=== PATIENT | female | born 1945 | race Caucasian/White ===

== ENCOUNTER 2017-11-15 08:03 | Inpatient (IN) | payer MEDICARE, BC ==
[2017-11-15 08:06] VITALS: BMI 36.6
--- NOTE | 2017-11-15 08:42 | ED PDOC ---
HPI: Altered Mental Status Time Seen by Provider: 11/15/17 08:12 Chief Complaint (Nursing): Altered Mental Status Chief Complaint (Provider): Altered mental status History Per: Other ([facility] staff at [facility]) History/Exam Limitations: Clinical Condition Onset/Duration Of Symptoms: Days Current Symptoms Are (Timing): Still Present Description Of Symptoms: Confused Usual Baseline: Alert Oriented Additional Complaint(s): 72yo female arrives to ER from [address] [place] [address] where she was visiting her partner and per clinical staff upstairs, patient was noted to have worsening confusion over the past couple days. Currently in ED, patient denies any complaints however she appears confused. A full HPI is limited due to patient confusion. Prior chart review reveals a past medical history of hypertension, hyperthyroidsm, TIA (8 years ago) and arthritis. NIHSS Stroke Scale - Date/Time Evaluation Performed Date Performed: 11/15/17 Time Performed: 09:55 When Was NIHSS Performed: Baseline - How Severe is the Stroke Level of Consciousness: 0=Alert LOC to Questions: 1=One correct LOC to commands: 0=Obeys both correctly Best Gaze: 0=Normal Visual: 0=No visual loss Facial: 0=Normal Motor Arm - Left: 0=No drift Motor Arm - Right: 0=No drift Motor Leg - Left: 0=No drift Motor Leg - Right: 0=No drift Limb Ataxia: 0=Absent Sensory: 0=Normal Best Language: 0=No aphasia Dysarthia: 0=Normal articulation Extinction & Inattention (Neglect): 0=Normal, no object Score: 1 rTPA Inclusion/Exclusion - Refusal of Treatment Patient Refused Treatment: No - Inclusion Criteria for Altepase Patient is 18 years or Older: Yes Clinical DX Ischemic Stroke Cause Neurological Deficit: No Time of Onset Established Less Than 270 Mins Before TX Begin: No Risk/Benefit Discussed With Patient/Family Member Present: Yes - Exclusion Criteria for Altepase Uncontrolled Hypertension at Time of TX (SBP>185 or DBP>110): No Past Medical History Reviewed: Historical Data, Nursing Documentation, Vital Signs Vital Signs: Last Vital Signs Temp 98 F 11/15/17 08:06 Pulse 60 11/15/17 08:06 Resp 16 11/15/17 08:06 BP 158/73 H 11/15/17 08:06 Pulse Ox 98 11/15/17 08:06 - Medical History PMH: Arthritis, Asthma, Diverticulitis, HTN, Hypothyroidism, TIA Denies: CHF, COPD, HIV, Hypercholesterolemia, Chronic Kidney Disease, Rheumatoid Arthritis - Surgical History Surgical History: Tonsillectomy - Family History Family History: States: No Known Family Hx, Unknown Family Hx - Home Medications Home Medications: Ambulatory Orders Medication Instructions Recorded Memantine HCl [Namenda Xr] 14 mg PO DAILY 09/07/16 Telmisartan/Hydrochlorothiazid 1 tab PO DAILY 09/07/16 [Micardis Hct 80-12.5 mg Tablet] Levothyroxine [Synthroid] 150 mcg PO DAILY 11/15/17 - Allergies Allergies/Adverse Reactions: Allergies Allergy/AdvReac Type Severity Reaction Status Date / Time terbinafine HCl Allergy RASH Verified 09/03/16 13:11 [From Lamisil] Review of Systems Review Of Systems: ROS cannot be obtained secondary to pt's inabilty to answer questions. (confused) Physical Exam - Reviewed Nursing Documentation Reviewed: Yes Vital Signs Reviewed: Yes - Physical Exam Appears: Positive for: Non-toxic Head Exam: Positive for: ATRAUMATIC, NORMAL INSPECTION, NORMOCEPHALIC Skin: Positive for: Normal Color Eye Exam: Positive for: Normal appearance ENT: Positive for: Other (moist mucus membranes) Neck: Positive for: Supple Respiratory: Negative for: Respiratory Distress Gastrointestinal/Abdominal: Positive for: Soft. Negative for: Tenderness Extremity: Negative for: Deformity Neurologic/Psych: Positive for: Other (Patient has poor short term recall. Successful identificatio of objects such as pen and keys; could not recall her address. Patient could spell name successfully.). Negative for: Motor/Sensory Deficits (Patient has equal strength, 5/5. Coordination slow but intact.), Aphasia (No dysarthria noted. Speech is fluent but with periods of confusion.) - Laboratory Results Result Diagrams: 11/17/17 06:00 11/19/17 04:30 - ECG ECG: Positive for: Interpreted By Me, Viewed By Me ECG Rhythm: Positive for: Sinus Bradycardia, Nonspecific Changes (ST/T waves) Rate: 56 O2 Sat by Pulse Oximetry: 98 (RA) Pulse Ox Interpretation: Normal Medical Decision Making Medical Decision Making: Impression: Altered mental status Plan: -- CT Head -- Labs -- Chest x-ray -- Will discuss with patient's PCP Dr. Abdi Time: 0162 Patient to be admitted to telemetry under Dr. Jeffrey for altered mental status. Time: 1040 CT Head FINDINGS: HEMORRHAGE: No intracranial hemorrhage. BRAIN: No mass effect or edema. Minimal atrophy. Mild periventricular white matter lucency with patchy foci of subcortical and deep white matter lucency consistent with age related microvascular ischemic change. No evidence of acute infarct. VENTRICLES: Unremarkable. No hydrocephalus. CALVARIUM: Unremarkable. PARANASAL SINUSES: Unremarkable as visualized. No significant inflammatory changes. MASTOID AIR CELLS: Unremarkable as visualized. No inflammatory changes. OTHER FINDINGS: None. IMPRESSION: No intracranial mass, hemorrhage or evidence of acute infarct. Age-appropriate involutional change. Admit hospitalist, remains confused per report off baseline Metabolics available in ED/ labs inconclusive as to cause. ?dementia vs organic etiology. Unclear prior history. D/w Dr Abdi PMD admit hospitalist, will consult neurology. No signs sepsis/neck pain/ fever/ seizure activity to demonstrate meningitis on arrival. Scribe Attestation: Documented by Maria Eugenia Blackwood acting as a scribe for Mark Ochoa DO. Provider Attestation: All medical record entries made by the Scribe were at my direction and personally dictated by me. I have reviewed the chart and agree that the record accurately reflects my personal performance of the history, physical exam, medical decision making, and the department course for this patient. I have also personally directed, reviewed, and agree with the discharge instructions and disposition. Disposition - Clinical Impression Clinical Impression: Altered mental status - Patient ED Disposition Is Patient to be Admitted: Yes Counseled Patient/Family Regarding: Studies Performed, Diagnosis, Need For Followup, Rx Given - Disposition Disposition Time: 09:55 Condition: FAIR - Pt Status Changed To: Hospital Disposition Of: Inpatient - Admit Certification Admit to Inpatient:: After my assessment, the patient will require hospitalization for at least two midnights. This is because of the severity of symptoms shown, intensity of services needed, and/or the medical risk in this patient being treated as an outpatient.
[2017-11-15 08:44] LABS: BASO # 0.1 K/uL (0.0-0.2); BASO % 1.2 % (0.0-2.0); EOS % 0.8 % (0.0-4.0); HEMOGLOBIN 14.5 g/dL (12.0-16.0); LYMPH # 1.2 K/uL (1.0-4.3); MEAN CELL VOLUME 94.1 fl (81.0-99.0); MEAN PLATELET VOLUME 8.5 fl (7.2-11.7); MONO # 0.4 K/uL (0.0-0.8); MONO % 7.8 % (0.0-10.0); NEUT # 3.8 K/uL (1.8-7.0); NEUT % 69.2 % (50.0-75.0); NRBC % 0.1 % (0.0-0.0); RBC 4.52 Mil/uL (3.80-5.20); RED CELL DISTRIBUTION WIDTH 15.8 % (11.5-14.5); WHITE BLOOD COUNT 5.6 K/uL (4.8-10.8)
[2017-11-15 09:08] LABS: INR 1.1 (0.9-1.2); PARTIAL THROMBOPLASTIN TIME 33.8 Seconds (25.6-37.1); PROTHROMBIN TIME 11.7 Seconds (9.8-13.1)
[2017-11-15 09:16] LABS: ALBUMIN 4.8 g/dL (3.5-5.0); ALT/SGPT 65 U/L (9-52); AST/SGOT 77 U/L (14-36); BLOOD UREA NITROGEN 14 mg/dl (7-17); CALCIUM 9.8 mg/dL (8.4-10.2); GFR AFRICAN-AMERICAN 48; GFR NON-AFRICAN AMERICAN 40
[2017-11-15 09:18] LABS: ALB/GLOB RATIO 1.3 (1.0-2.1)
[2017-11-15 09:57] LABS: SQUAMOUS EPITHIAL 4 /hpf (0-5); URINE BACTERIA FEW (<OCC); URINE BILIRUBIN NEGATIVE (NEGATIVE); URINE BLOOD MODERATE (NEGATIVE); URINE CLARITY CLOUDY (Clear); URINE COLOR YELLOW (YELLOW); URINE GLUCOSE (UA) NEG (Normal); URINE LEUKOCYTE ESTERASE MOD Leu/uL (Negative); URINE NITRATE NEGATIVE (NEGATIVE); URINE PROTEIN 100 mg/dL (NEGATIVE); URINE UROBILINOGEN 0.2-1.0 mg/dL (0.2-1.0)
--- NOTE | 2017-11-15 10:41 | CT ---
PROCEDURE: CT HEAD WITHOUT CONTRAST. HISTORY: AMS COMPARISON: None available. TECHNIQUE: Axial computed tomography images were obtained through the head/brain without intravenous contrast. Radiation dose: Total exam DLP = 777.82 mGy-cm. This CT exam was performed using one or more of the following dose reduction techniques: Automated exposure control, adjustment of the mA and/or kV according to patient size, and/or use of iterative reconstruction technique. FINDINGS: HEMORRHAGE: No intracranial hemorrhage. BRAIN: No mass effect or edema. Minimal atrophy. Mild periventricular white matter lucency with patchy foci of subcortical and deep white matter lucency consistent with age related microvascular ischemic change. No evidence of acute infarct. VENTRICLES: Unremarkable. No hydrocephalus. CALVARIUM: Unremarkable. PARANASAL SINUSES: Unremarkable as visualized. No significant inflammatory changes. MASTOID AIR CELLS: Unremarkable as visualized. No inflammatory changes. OTHER FINDINGS: None. IMPRESSION: No intracranial mass, hemorrhage or evidence of acute infarct. Age-appropriate involutional change.
--- NOTE | 2017-11-15 11:32 | RAD ---
HISTORY: AMS COMPARISON: No prior. FINDINGS: LUNGS: No active pulmonary disease. PLEURA: No significant pleural effusion identified, no pneumothorax apparent. CARDIOVASCULAR: Normal. OSSEOUS STRUCTURES: No significant abnormalities. VISUALIZED UPPER ABDOMEN: Normal. OTHER FINDINGS: None. IMPRESSION: No active disease.
--- NOTE | 2017-11-15 13:37 | CP.PCM.HP ---
History of Present Illness - History of Present Illness History of Present Illness: 72 y/o female with PMH HTN, dementia, hypothyroidism, TIA was brought down to ER for evaluation from [address] for Altered mental status and confusion . As per staff patient's girlfriend has been admitted in the hospital a couple of days ago and since than the patient has not left her side. As per staff they noticed patient getting more confused , wandering in the unit, without knowing where she was and what she was doing , unable to answer questions appropriately . Her CT head showed no acute pathology. Patient oriented only to self with no gross neuro deficits , unable to provide history or ROS. As per friend and girlfriend patient has dementia PMD ; None Allergies ; terbinafinE PMH; Dementia, HTN , Hypothyroidism Medications; Synthroid, memantine, telmizartan/HCTZ Surgery ; [place] family history ; Unknown Social history ; Lives with girlfriend ,does not smoke ROS ; unable to obtain from patient or family members Present on Admission - Present on Admission Any Indicators Present on Admission: No Past Patient History - Infectious Disease Hx of Infectious Diseases: None - Tetanus Immunizations Tetanus Immunization: Unknown - Past Medical History & Family History Past Medical History?: Yes - Past Social History Smoking Status: Never Smoked - CARDIAC Hx Cardiac Disorders: Yes - PULMONARY Hx Asthma: Yes Hx Chronic Obstructive Pulmonary Disease (COPD): No - NEUROLOGICAL Hx Transient Ischemic Attacks (TIA): Yes - HEENT Hx HEENT Problems: No - RENAL Hx Chronic Kidney Disease: No - ENDOCRINE/METABOLIC Hx Hypothyroidism: Yes - HEMATOLOGICAL/ONCOLOGICAL Hx Human Immunodeficiency Virus (HIV): No - INTEGUMENTARY Hx Dermatological Problems: No - MUSCULOSKELETAL/RHEUMATOLOGICAL Hx Arthritis: Yes Hx Rheumatoid Arthritis: No - GASTROINTESTINAL Hx Diverticulitis: Yes - GENITOURINARY/GYNECOLOGICAL Hx Genitourinary Disorders: No - PSYCHIATRIC Hx Psychophysiologic Disorder: No Hx Substance Use: No - SURGICAL HISTORY Hx Tonsillectomy: Yes - ANESTHESIA Hx Anesthesia: Yes Hx Anesthesia Reactions: No Meds Allergies/Adverse Reactions: Allergies Allergy/AdvReac Type Severity Reaction Status Date / Time terbinafine HCl Allergy RASH Verified 09/03/16 13:11 [From Lamisil] Physical Exam - Constitutional Appears: Non-toxic, No Acute Distress, Confused - Head Exam Head Exam: ATRAUMATIC, NORMAL INSPECTION, NORMOCEPHALIC - Eye Exam Eye Exam: EOMI, PERRL Pupil Exam: NORMAL ACCOMODATION - ENT Exam ENT Exam: Mucous Membranes Moist, Normal Exam - Neck Exam Neck exam: Positive for: Full Rom, Normal Inspection - Respiratory Exam Respiratory Exam: Clear to Auscultation Bilateral, NORMAL BREATHING PATTERN. absent: Rales, Rhonchi, Wheezes - Cardiovascular Exam Cardiovascular Exam: REGULAR RHYTHM, RRR, +S1, +S2. absent: JVD - GI/Abdominal Exam GI & Abdominal Exam: Normal Bowel Sounds, Soft. absent: Distended, Guarding, Rebound, Tenderness - Rectal Exam Rectal Exam: Deferred - Extremities Exam Extremities exam: Positive for: normal capillary refill, normal inspection, pedal pulses present. Negative for: calf tenderness, pedal edema - Back Exam Back exam: NORMAL INSPECTION - Neurological Exam Additional comments: confused oriented to self no weakness , slurred speech , sensory loss - Psychiatric Exam Psychiatric exam: Flat Affect - Skin Skin Exam: Dry, Normal Color, Warm Results - Vital Signs Recent Vital Signs: Last Vital Signs Temp 97.3 F L 11/15/17 12:00 Pulse 60 11/15/17 12:00 Resp 18 11/15/17 12:00 BP 159/83 H 11/15/17 12:00 Pulse Ox 95 11/15/17 12:00 - Labs Result Diagrams: 11/15/17 08:35 11/15/17 08:35 Labs: Laboratory Results - last 24 hr 11/15/17 11/15/17 11/15/17 08:22 08:35 08:35 WBC 5.6 RBC 4.52 Hgb 14.5 Hct 42.6 MCV 94.1 D MCH 32.0 H MCHC 34.0 RDW 15.8 H Plt Count 260 MPV 8.5 Neut % (Auto) 69.2 Lymph % (Auto) 21.0 Haakon % (Auto) 7.8 Eos % (Auto) 0.8 Baso % (Auto) 1.2 Neut # 3.8 Lymph # 1.2 Haakon # 0.4 Eos # 0.0 Baso # 0.1 PT INR APTT Sodium 142 Potassium 3.6 Chloride 101 Carbon Dioxide 31 H Anion Gap 14 BUN 14 Creatinine 1.3 H Est GFR ( Amer) 48 Est GFR (Non-Af Amer) 40 POC Glucose (mg/dL) 94 Random Glucose 106 H Calcium 9.8 Total Bilirubin 1.1 AST 77 H ALT 65 H D Alkaline Phosphatase 70 Troponin I < 0.0120 Total Protein 8.3 H Albumin 4.8 Globulin 3.6 Albumin/Globulin Ratio 1.3 Urine Color Urine Clarity Urine pH Ur Specific Irving Urine Protein Urine Glucose (UA) Urine Ketones Urine Blood Urine Nitrate Urine Bilirubin Urine Urobilinogen Ur Leukocyte Esterase Urine RBC (Auto) Urine Microscopic WBC Ur Squamous Epith Cells Urine Bacteria Alcohol, Quantitative < 10 11/15/17 11/15/17 08:35 09:41 WBC RBC Hgb Hct MCV MCH MCHC RDW Plt Count MPV Neut % (Auto) Lymph % (Auto) Haakon % (Auto) Eos % (Auto) Baso % (Auto) Neut # Lymph # Haakon # Eos # Baso # PT 11.7 INR 1.1 APTT 33.8 Sodium Potassium Chloride Carbon Dioxide Anion Gap BUN Creatinine Est GFR ( Amer) Est GFR (Non-Af Amer) POC Glucose (mg/dL) Random Glucose Calcium Total Bilirubin AST ALT Alkaline Phosphatase Troponin I Total Protein Albumin Globulin Albumin/Globulin Ratio Urine Color Yellow Urine Clarity Cloudy Urine pH 5.0 Ur Specific Irving 1.028 Urine Protein 100 Urine Glucose (UA) Neg Urine Ketones Negative Urine Blood Moderate Urine Nitrate Negative Urine Bilirubin Negative Urine Urobilinogen 0.2-1.0 Ur Leukocyte Esterase Mod Urine RBC (Auto) 6 H Urine Microscopic WBC 10 H Ur Squamous Epith Cells 4 Urine Bacteria Few H Alcohol, Quantitative - Imaging and Cardiology CT scan - head Additional comment: no acute pathology Assessment & Plan - Assessment and Plan (Free Text) Assessment: 72 y/o female with PMH HTN, dementia, hypothyroidism, TIA was brought down to ER for evaluation from [facility] for Altered mental status and confusion . As per staff patient's girlfriend has been admitted in the hospital a couple of days ago and since than the patient has not left her side. As per staff they noticed patient getting more confused , wandering in the unit, without knowing where she was and what she was doing , unable to answer questions appropriately . Her CT head showed no acute pathology. Patient oriented only to self with no gross neuro deficits , unable to provide history or ROS. As per friend and girlfriend patient has dementia 1. Altered Mental status -- unknown etiology most likely delirium related to dementia and sleep deprivation . Unlikely CVA admit patient to telemetry unit Started ASA, statin CT head showed no acute pathology consulted Dr. Echols neuro who knows patient from before and case discussed . Most likely patient has episode of acute delirium and psychosis and recommended psych eval will call psychiatry evaluatiomn influenza test-negative UA showed bacteria and LE. Started rocephin IV for possible UTI. Will follow up urine cx CXR showed no active disease continue 1 ;1 for safety / fall precautions 2. Hypothyroidims check TSH resume Synthroid 3. HTN can resume home meds after discussing with neuro 4. Mild cognitive impairment / Dementia neuro consulted psych eval 5. suspected UTI send urine cx continue rocephin IV 6. Acute Kidney Injury Cr 1.3 Start IVF and repeat BMP in Am 7. DVT prophylaxis SCD lovenox
--- NOTE | 2017-11-15 17:16 | CON ---
DATE: 11/15/2017 NEUROLOGY CONSULT CHIEF COMPLAINT: Altered mental status. HISTORY OF PRESENT ILLNESS: This is a 72-year-old woman with past medical history of hypertension, hyperthyroidism, TIA, arthritis, and dementia, who presents to the hospital because she was having worsening confusion in the past few days, wandering around the hospital floor since her partner is an inpatient on [address]. She is currently now only conversating with me in Slovenian rather than [place]eg[place]e, though the patient knows fluent [place]e as well. She has a history of mild cognitive impairment for which she is on Namenda XR 40 mg extended release as an outpatient but is now having episodes of preservation as well as focusing more on restorationism actions. She has no focal weakness or paresthesias in the extremities. No change in sense, vision, taste, or smell. CAT scan of the head showed no acute intracranial abnormality. It seems more as a psychiatric component to this whole scenario. PAST MEDICAL HISTORY: Hypertension, hyperlipidemia, hypothyroidism, TIA, arthritis, and dementia. REVIEW OF SYSTEMS: A 14-point review of system is negative except for the HPI. FAMILY HISTORY: Noncontributory. SOCIAL HISTORY: No illicit drug use, smoking, or ETOH abuse. MEDICATIONS: Reviewed by nurse per reconciliation sheet. ALLERGIES: PHYSICAL EXAMINATION: VITAL SIGNS: Temperature 97.3, pulse rate 60, blood pressure 159/83, respiratory rate of 18, oxygen saturation 95% on room air. GENERAL: The patient is sitting up in bed, very hyper-restorationism at this point. HEENT: Head is atraumatic and normocephalic. PERRLA. Extraocular muscles are intact. NECK: Supple. No JVD. No adenopathy noted. LUNGS: Clear to auscultation. No adventitious sounds. HEART: S1 and S2. Normal rate and rhythm. No murmurs, rubs, or gallops. ABDOMEN: Soft, nontender, and nondistended. Bowel sounds are present. EXTREMITIES: No clubbing. No cyanosis. Peripheral pulses 2+ felt bilaterally. NEUROLOGIC: The patient is alert and oriented to person, place, and year. Recall after 5 minutes 0/3. Poor attention span, slow thought process. She is only conversing in Slovenian, not in [place]eg[place]e, though she can speak Sen[place]e. Motor: Slight increase in tone throughout. Moves all extremities equally. Toes are downgoing bilaterally. Sensory: Light touch, pinprick, proprioception, and vibration are intact. DTRs are 2+ throughout. Coordination, [id number] intact. Gait is deferred for now. LABORATORY DATA: Sodium is 142, potassium 3.6, chloride 101, carbon dioxide 31, BUN of 14, creatinine 1.3, and random glucose of 106. AST 77, ALT 65, alkaline phosphatase 70. ASSESSMENT AND PLAN: This is a 72-year-old woman with past medical history of mild cognitive impairment/dementia, on Namenda extended release 40 mg p.o. daily; hyperlipidemia; hypertension;and hypothyroidism who presents with acute onset of confusion. Her confusion is likely secondary to an acute psychotic episode since the patient has been having poor hygiene for the past 2 days and has been wandering around the hallway since her partner is as an inpatient on . It seems that she has underlying delirium superimposed underlying dementia with a psychiatric component. At this time, we would recommend: 1. Influenza screen. 2. Monitor electrolytes and correct accordingly. 3. IV fluids. 4. Avoid nighttime interruptions and continue with delirium precautions. 5. Psychiatric consult to evaluate for acute psychosis. Once again, thank you for this consult. Julius Rivas MD
[2017-11-16] MEDS ORDERED: Levothyroxine 150 MCG TAB PO SCH (06:30)
[2017-11-16 06:50] LABS: BASO # 0.1 K/uL (0.0-0.2); BASO % 0.7 % (0.0-2.0); EOS % 0.4 % (0.0-4.0); HEMOGLOBIN 13.9 g/dL (12.0-16.0); LYMPH # 0.8 K/uL (1.0-4.3); LYMPH % 9.7 % (20.0-40.0); MEAN CELL VOLUME 95.6 fl (81.0-99.0); MEAN CORPUSCULAR HEMOGLOBIN 31.5 pg (27.0-31.0); MONO # 0.5 K/uL (0.0-0.8); MONO % 6.7 % (0.0-10.0); NEUT # 6.5 K/uL (1.8-7.0); NEUT % 82.5 % (50.0-75.0); NRBC % 0.1 % (0.0-0.0); PLATELET COUNT 239 K/uL (130-400); RBC 4.41 Mil/uL (3.80-5.20); RED CELL DISTRIBUTION WIDTH 15.4 % (11.5-14.5); WHITE BLOOD COUNT 7.8 K/uL (4.8-10.8)
[2017-11-16 06:56] LABS: ALB/GLOB RATIO 1.4 (1.0-2.1); ALBUMIN 4.5 g/dL (3.5-5.0); CALCIUM 9.6 mg/dL (8.4-10.2)
[2017-11-16 07:16] LABS: PARTIAL THROMBOPLASTIN TIME 32.7 Seconds (25.6-37.1); PROTHROMBIN TIME 11.5 Seconds (9.8-13.1)
--- NOTE | 2017-11-16 08:27 | CP.PCM.CON ---
History of Present Illness - History of Present Illness History of Present Illness: Psychiatry consult CC: "I don't know why I'm here." HPI: 72 y/o female with PMH HTN, Lewy Body dementia, hypothyroidism, TIA admitted with altered mental status and confusion. As per records, patient has had worsening confusion, has been wandering the unit and does not answer questions appropriately. Patient is unable to give an accurate history to the property underwriter. She reports intermittent feelings of depression, denies anxiety/SI/HI/ AH/VH. She is paranoid that someone is trying to sexually assault her. When asked to give more details she was not able to, but did state that she would recognize if someone wanted to sexually assault her. She is oriented to self and "hospital" but unable to answer which hospital, the date, or the president. History was obtained from the chart. PPHx: Unable to obtain an accurate psychiatric history at this time. PMHx: Lewy Body Dementia, HTN, Hypothyroidism Medications: Synthroid, Memantine, Telmizartan/HCTZ SHx: Lives w/ girlfriend MSE: A + O x self and "hospital," calm and cooperative, good eye contact, mood "okay", affect- calm/pleasant, thought process- non-linear, thought content- + Paranoia, no SI/HI, no AH/VH, poor I/J Impression: 72 yo female w/ acute delirium vs worsening Lewy Body Dementia; patient is acutely paranoid at this time. Would recommend to avoid treatment with antipsychotics as it can adverse effects and worsen confusion in patients with Lewy Body Dementia. -Do not give any typical antipsychotics (such as Haldol) -Would treat acute medical issues that might be causing delirium and avoid treatment with atypical antipsychotics at this time -Would recommend to consult w/ neurology regarding optimal treatment with Cholinesterase Inhibitors (Aricept, Exelon or Razadyne) which may also help improve cognitive and behavioral issues -Would recommend to continue 1:1 for safety Past Patient History - Infectious Disease Hx of Infectious Diseases: None - Tetanus Immunizations Tetanus Immunization: Unknown - Past Medical History & Family History Past Medical History?: Yes - Past Social History Smoking Status: Never Smoked - CARDIAC Hx Cardiac Disorders: Yes - PULMONARY Hx Asthma: Yes Hx Chronic Obstructive Pulmonary Disease (COPD): No - NEUROLOGICAL Hx Transient Ischemic Attacks (TIA): Yes - HEENT Hx HEENT Problems: No - RENAL Hx Chronic Kidney Disease: No - ENDOCRINE/METABOLIC Hx Hypothyroidism: Yes - HEMATOLOGICAL/ONCOLOGICAL Hx Human Immunodeficiency Virus (HIV): No - INTEGUMENTARY Hx Dermatological Problems: No - MUSCULOSKELETAL/RHEUMATOLOGICAL Hx Arthritis: Yes Hx Rheumatoid Arthritis: No - GASTROINTESTINAL Hx Diverticulitis: Yes - GENITOURINARY/GYNECOLOGICAL Hx Genitourinary Disorders: No - PSYCHIATRIC Hx Psychophysiologic Disorder: No Hx Substance Use: No - SURGICAL HISTORY Hx Tonsillectomy: Yes - ANESTHESIA Hx Anesthesia: Yes Hx Anesthesia Reactions: No Meds Allergies/Adverse Reactions: Allergies Allergy/AdvReac Type Severity Reaction Status Date / Time terbinafine HCl Allergy RASH Verified 09/03/16 13:11 [From Lamisil] - Medications Medications: Current Medications Acetaminophen (Tylenol 325mg Tab) 650 mg PO Q6 PRN PRN Reason: Pain, Mild (1-3) Acetaminophen (Tylenol 325mg Tab) 650 mg PO Q6 PRN PRN Reason: Fever >100.4 F Aspirin (Aspirin Chewable) 81 mg PO DAILY [facility] Atorvastatin Calcium (Lipitor) 40 mg PO DAILY [facility] Enoxaparin Sodium (Lovenox) 40 mg SC DAILY [facility] PRN Reason: Protocol Hydrochlorothiazide (Microzide) 12.5 mg PO DAILY [facility] Ceftriaxone Sodium 1 gm/ (Sodium Chloride) 100 mls @ 100 mls/hr IVPB DAILY [facility] PRN Reason: Protocol Last Admin: 11/15/17 18:47 Dose: 100 mls/hr Levothyroxine Sodium (Synthroid) 150 mcg PO DAILY@0630 [facility] Last Admin: 11/16/17 06:14 Dose: 150 mcg Losartan Potassium (Cozaar) 100 mg PO DAILY [facility] Memantine (Namenda) 5 mg PO BID [facility] Ondansetron HCl (Zofran Inj) 4 mg IVP Q6 PRN PRN Reason: Nausea/Vomiting Pantoprazole Sodium (Protonix Ec Tab) 40 mg PO DAILY [facility] Results - Vital Signs Recent Vital Signs: Last Vital Signs Temp 98.2 F 11/16/17 06:02 Pulse 58 L 11/16/17 06:02 Resp 18 11/16/17 06:02 BP 136/61 11/16/17 06:02 Pulse Ox 95 11/16/17 06:02 - Labs Result Diagrams: 11/16/17 04:50 11/16/17 04:50 Labs: Laboratory Results - last 24 hr 11/15/17 11/15/17 11/15/17 08:22 08:35 08:35 WBC 5.6 RBC 4.52 Hgb 14.5 Hct 42.6 MCV 94.1 D MCH 32.0 H MCHC 34.0 RDW 15.8 H Plt Count 260 MPV 8.5 Neut % (Auto) 69.2 Lymph % (Auto) 21.0 [place] % (Auto) 7.8 Eos % (Auto) 0.8 Baso % (Auto) 1.2 Neut # 3.8 Lymph # 1.2 [place] # 0.4 Eos # 0.0 Baso # 0.1 PT INR APTT Sodium 142 Potassium 3.6 Chloride 101 Carbon Dioxide 31 H Anion Gap 14 BUN 14 Creatinine 1.3 H Est GFR ( Amer) 48 Est GFR (Non-Af Amer) 40 POC Glucose (mg/dL) 94 Random Glucose 106 H Hemoglobin A1c Calcium 9.8 Total Bilirubin 1.1 AST 77 H ALT 65 H D Alkaline Phosphatase 70 Troponin I < 0.0120 Total Protein 8.3 H Albumin 4.8 Globulin 3.6 Albumin/Globulin Ratio 1.3 Triglycerides Cholesterol LDL Cholesterol Direct HDL Cholesterol TSH 3rd Generation Urine Color Urine Clarity Urine pH Ur Specific [place] Urine Protein Urine Glucose (UA) Urine Ketones Urine Blood Urine Nitrate Urine Bilirubin Urine Urobilinogen Ur Leukocyte Esterase Urine RBC (Auto) Urine Microscopic WBC Ur Squamous Epith Cells Urine Bacteria Alcohol, Quantitative < 10 Influenza Typ A,B (EIA) 11/15/17 11/15/17 11/15/17 08:35 09:41 14:38 WBC RBC Hgb Hct MCV MCH MCHC RDW Plt Count MPV Neut % (Auto) Lymph % (Auto) [place] % (Auto) Eos % (Auto) Baso % (Auto) Neut # Lymph # [place] # Eos # Baso # PT 11.7 INR 1.1 APTT 33.8 Sodium Potassium Chloride Carbon Dioxide Anion Gap BUN Creatinine Est GFR ( Amer) Est GFR (Non-Af Amer) POC Glucose (mg/dL) Random Glucose Hemoglobin A1c 5.9 Calcium Total Bilirubin AST ALT Alkaline Phosphatase Troponin I Total Protein Albumin Globulin Albumin/Globulin Ratio Triglycerides Cholesterol LDL Cholesterol Direct HDL Cholesterol TSH 3rd Generation Urine Color Yellow Urine Clarity Cloudy Urine pH 5.0 Ur Specific [place] 1.028 Urine Protein 100 Urine Glucose (UA) Neg Urine Ketones Negative Urine Blood Moderate Urine Nitrate Negative Urine Bilirubin Negative Urine Urobilinogen 0.2-1.0 Ur Leukocyte Esterase Mod Urine RBC (Auto) 6 H Urine Microscopic WBC 10 H Ur Squamous Epith Cells 4 Urine Bacteria Few H Alcohol, Quantitative Influenza Typ A,B (EIA) 11/15/17 11/15/17 11/15/17 14:38 17:10 21:49 WBC RBC Hgb Hct MCV MCH MCHC RDW Plt Count MPV Neut % (Auto) Lymph % (Auto) [place] % (Auto) Eos % (Auto) Baso % (Auto) Neut # Lymph # [place] # Eos # Baso # PT INR APTT Sodium Potassium Chloride Carbon Dioxide Anion Gap BUN Creatinine Est GFR ( Amer) Est GFR (Non-Af Amer) POC Glucose (mg/dL) 92 Random Glucose Hemoglobin A1c Calcium Total Bilirubin AST ALT Alkaline Phosphatase Troponin I Total Protein Albumin Globulin Albumin/Globulin Ratio Triglycerides Cholesterol LDL Cholesterol Direct HDL Cholesterol TSH 3rd Generation 99.00 H Urine Color Urine Clarity Urine pH Ur Specific [place] Urine Protein Urine Glucose (UA) Urine Ketones Urine Blood Urine Nitrate Urine Bilirubin Urine Urobilinogen Ur Leukocyte Esterase Urine RBC (Auto) Urine Microscopic WBC Ur Squamous Epith Cells Urine Bacteria Alcohol, Quantitative Influenza Typ A,B (EIA) Negative for flu a/b 11/16/17 11/16/17 11/16/17 04:50 04:50 04:50 WBC 7.8 RBC 4.41 Hgb 13.9 Hct 42.1 MCV 95.6 MCH 31.5 H MCHC 33.0 RDW 15.4 H Plt Count 239 MPV 9.0 Neut % (Auto) 82.5 H Lymph % (Auto) 9.7 L [place] % (Auto) 6.7 Eos % (Auto) 0.4 Baso % (Auto) 0.7 Neut # 6.5 Lymph # 0.8 L [place] # 0.5 Eos # 0.0 Baso # 0.1 PT 11.5 INR 1.0 APTT 32.7 Sodium 142 Potassium 4.3 Chloride 101 Carbon Dioxide 28 Anion Gap 17 BUN 16 Creatinine 1.2 Est GFR ( Amer) 53 Est GFR (Non-Af Amer) 44 POC Glucose (mg/dL) Random Glucose 101 Hemoglobin A1c Calcium 9.6 Total Bilirubin 1.2 AST 68 H ALT 60 H Alkaline Phosphatase 62 Troponin I Total Protein 7.6 Albumin 4.5 Globulin 3.2 Albumin/Globulin Ratio 1.4 Triglycerides 121 Cholesterol 343 H LDL Cholesterol Direct 206 H HDL Cholesterol 90 H TSH 3rd Generation Urine Color Urine Clarity Urine pH Ur Specific [place] Urine Protein Urine Glucose (UA) Urine Ketones Urine Blood Urine Nitrate Urine Bilirubin Urine Urobilinogen Ur Leukocyte Esterase Urine RBC (Auto) Urine Microscopic WBC Ur Squamous Epith Cells Urine Bacteria Alcohol, Quantitative Influenza Typ A,B (EIA) 11/16/17 06:15 WBC RBC Hgb Hct MCV MCH MCHC RDW Plt Count MPV Neut % (Auto) Lymph % (Auto) [place] % (Auto) Eos % (Auto) Baso % (Auto) Neut # Lymph # [place] # Eos # Baso # PT INR APTT Sodium Potassium Chloride Carbon Dioxide Anion Gap BUN Creatinine Est GFR ( Amer) Est GFR (Non-Af Amer) POC Glucose (mg/dL) 108 Random Glucose Hemoglobin A1c Calcium Total Bilirubin AST ALT Alkaline Phosphatase Troponin I Total Protein Albumin Globulin Albumin/Globulin Ratio Triglycerides Cholesterol LDL Cholesterol Direct HDL Cholesterol TSH 3rd Generation Urine Color Urine Clarity Urine pH Ur Specific [place] Urine Protein Urine Glucose (UA) Urine Ketones Urine Blood Urine Nitrate Urine Bilirubin Urine Urobilinogen Ur Leukocyte Esterase Urine RBC (Auto) Urine Microscopic WBC Ur Squamous Epith Cells Urine Bacteria Alcohol, Quantitative Influenza Typ A,B (EIA)
[2017-11-16] MEDS: Enoxaparin 40 mg Syringe SC SCH (09:00)
[2017-11-16] MEDS: Pantoprazole 40 mg EC Tab PO SCH (09:00)
--- NOTE | 2017-11-16 09:36 | CP.PCM.CON ---
History of Present Illness - History of Present Illness History of Present Illness: This 72-year- old female, known to me over the last 3 years, a long-standing hypertensive of more than 20 years with chronic exogenous obesity was recently diagnosed as having Lewy body dementia and was started on Exelon. She has never been a smoker or diabetic and has never suffered a myocardial infarction. She gives history of having had transient ischemic attacks in the past. There is never been a mika cerebrovascular accident. Recently her partner was hospitalized with a cerebrovascular accident and the patient has been distraught. She had admitted to taking her medications erratically recently. The patient was sent to the emergency room after she was found confused by the nursing staff while visiting her partner in the hospital. In the emergency room the patient was quite disoriented and the neurologist examining her strongly felt that she had suffered a psychotic episode. I've examined the patient the day following hospitalization. The patient appears slightly confused regarding the circumstances of her admission area she recognized me readily. She is awake and alert. She has a heart rate of 68 bpm and regular and a blood pressure of 142/72 mmHg. Her jugular venous pressure was not elevated and there was no edema over lower extremity. The pedal pulses were feeble but distinctive present. There were no carotid bruits. The apex was in the fifth space the first and second heart sounds are normal. There was no murmur or gallop there were no rales. Her electric cardiogram shows sinus rhythm with a normal EKG pattern. Her lab data was noted. Her CBC and BUN/creatinine is appendectomy her to be normal with normal electrolytes. Her AST and ALT were mildly abnormal. Her TSH is severely elevated at 99 units. Impression: Rule out psychotic episode in a patient with early dementia. Long history of hypertension and chronic exogenous obesity. Markedly abnormal TSH suggests significant hypothyroidism this will need to be evaluated and promptly treated. she is stable from cardiovascular point of view. Past Patient History - Infectious Disease Hx of Infectious Diseases: None - Tetanus Immunizations Tetanus Immunization: Unknown - Past Medical History & Family History Past Medical History?: Yes - Past Social History Smoking Status: Never Smoked - CARDIAC Hx Cardiac Disorders: Yes - PULMONARY Hx Asthma: Yes Hx Chronic Obstructive Pulmonary Disease (COPD): No - NEUROLOGICAL Hx Transient Ischemic Attacks (TIA): Yes - HEENT Hx HEENT Problems: No - RENAL Hx Chronic Kidney Disease: No - ENDOCRINE/METABOLIC Hx Hypothyroidism: Yes - HEMATOLOGICAL/ONCOLOGICAL Hx Human Immunodeficiency Virus (HIV): No - INTEGUMENTARY Hx Dermatological Problems: No - MUSCULOSKELETAL/RHEUMATOLOGICAL Hx Arthritis: Yes Hx Rheumatoid Arthritis: No - GASTROINTESTINAL Hx Diverticulitis: Yes - GENITOURINARY/GYNECOLOGICAL Hx Genitourinary Disorders: No - PSYCHIATRIC Hx Psychophysiologic Disorder: No Hx Substance Use: No - SURGICAL HISTORY Hx Tonsillectomy: Yes - ANESTHESIA Hx Anesthesia: Yes Hx Anesthesia Reactions: No Meds Allergies/Adverse Reactions: Allergies Allergy/AdvReac Type Severity Reaction Status Date / Time terbinafine HCl Allergy RASH Verified 09/03/16 13:11 [From Lamisil] - Medications Medications: Current Medications Acetaminophen (Tylenol 325mg Tab) 650 mg PO Q6 PRN PRN Reason: Pain, Mild (1-3) Acetaminophen (Tylenol 325mg Tab) 650 mg PO Q6 PRN PRN Reason: Fever >100.4 F Aspirin (Aspirin Chewable) 81 mg PO DAILY [facility] Atorvastatin Calcium (Lipitor) 40 mg PO DAILY [facility] Enoxaparin Sodium (Lovenox) 40 mg SC DAILY [facility] PRN Reason: Protocol Hydrochlorothiazide (Microzide) 12.5 mg PO DAILY [facility] Ceftriaxone Sodium 1 gm/ (Sodium Chloride) 100 mls @ 100 mls/hr IVPB DAILY [facility] PRN Reason: Protocol Last Admin: 11/15/17 18:47 Dose: 100 mls/hr Levothyroxine Sodium (Synthroid) 150 mcg PO DAILY@0630 [facility] Last Admin: 11/16/17 06:14 Dose: 150 mcg Losartan Potassium (Cozaar) 100 mg PO DAILY [facility] Memantine (Namenda) 5 mg PO BID [facility] Ondansetron HCl (Zofran Inj) 4 mg IVP Q6 PRN PRN Reason: Nausea/Vomiting Pantoprazole Sodium (Protonix Ec Tab) 40 mg PO DAILY [facility] Results - Vital Signs Recent Vital Signs: Last Vital Signs Temp 98.2 F 11/16/17 06:02 Pulse 58 L 11/16/17 06:02 Resp 18 11/16/17 06:02 BP 136/61 11/16/17 06:02 Pulse Ox 95 11/16/17 06:02 - Labs Result Diagrams: 11/16/17 04:50 11/16/17 04:50 Labs: Laboratory Results - last 24 hr 11/15/17 11/15/17 11/15/17 09:41 14:38 14:38 WBC RBC Hgb Hct MCV MCH MCHC RDW Plt Count MPV Neut % (Auto) Lymph % (Auto) [place] % (Auto) Eos % (Auto) Baso % (Auto) Neut # Lymph # [place] # Eos # Baso # PT INR APTT Sodium Potassium Chloride Carbon Dioxide Anion Gap BUN Creatinine Est GFR ( Amer) Est GFR (Non-Af Amer) POC Glucose (mg/dL) Random Glucose Hemoglobin A1c 5.9 Calcium Total Bilirubin AST ALT Alkaline Phosphatase Total Protein Albumin Globulin Albumin/Globulin Ratio Triglycerides Cholesterol LDL Cholesterol Direct HDL Cholesterol TSH 3rd Generation 99.00 H Urine Color Yellow Urine Clarity Cloudy Urine pH 5.0 Ur Specific [place] 1.028 Urine Protein 100 Urine Glucose (UA) Neg Urine Ketones Negative Urine Blood Moderate Urine Nitrate Negative Urine Bilirubin Negative Urine Urobilinogen 0.2-1.0 Ur Leukocyte Esterase Mod Urine RBC (Auto) 6 H Urine Microscopic WBC 10 H Ur Squamous Epith Cells 4 Urine Bacteria Few H Influenza Typ A,B (EIA) 11/15/17 11/15/17 11/16/17 17:10 21:49 04:50 WBC 7.8 RBC 4.41 Hgb 13.9 Hct 42.1 MCV 95.6 MCH 31.5 H MCHC 33.0 RDW 15.4 H Plt Count 239 MPV 9.0 Neut % (Auto) 82.5 H Lymph % (Auto) 9.7 L [place] % (Auto) 6.7 Eos % (Auto) 0.4 Baso % (Auto) 0.7 Neut # 6.5 Lymph # 0.8 L [place] # 0.5 Eos # 0.0 Baso # 0.1 PT INR APTT Sodium Potassium Chloride Carbon Dioxide Anion Gap BUN Creatinine Est GFR ( Amer) Est GFR (Non-Af Amer) POC Glucose (mg/dL) 92 Random Glucose Hemoglobin A1c Calcium Total Bilirubin AST ALT Alkaline Phosphatase Total Protein Albumin Globulin Albumin/Globulin Ratio Triglycerides Cholesterol LDL Cholesterol Direct HDL Cholesterol TSH 3rd Generation Urine Color Urine Clarity Urine pH Ur Specific [place] Urine Protein Urine Glucose (UA) Urine Ketones Urine Blood Urine Nitrate Urine Bilirubin Urine Urobilinogen Ur Leukocyte Esterase Urine RBC (Auto) Urine Microscopic WBC Ur Squamous Epith Cells Urine Bacteria Influenza Typ A,B (EIA) Negative for flu a/b 11/16/17 11/16/17 11/16/17 04:50 04:50 06:15 WBC RBC Hgb Hct MCV MCH MCHC RDW Plt Count MPV Neut % (Auto) Lymph % (Auto) [place] % (Auto) Eos % (Auto) Baso % (Auto) Neut # Lymph # [place] # Eos # Baso # PT 11.5 INR 1.0 APTT 32.7 Sodium 142 Potassium 4.3 Chloride 101 Carbon Dioxide 28 Anion Gap 17 BUN 16 Creatinine 1.2 Est GFR ( Amer) 53 Est GFR (Non-Af Amer) 44 POC Glucose (mg/dL) 108 Random Glucose 101 Hemoglobin A1c Calcium 9.6 Total Bilirubin 1.2 AST 68 H ALT 60 H Alkaline Phosphatase 62 Total Protein 7.6 Albumin 4.5 Globulin 3.2 Albumin/Globulin Ratio 1.4 Triglycerides 121 Cholesterol 343 H LDL Cholesterol Direct 206 H HDL Cholesterol 90 H TSH 3rd Generation Urine Color Urine Clarity Urine pH Ur Specific [place] Urine Protein Urine Glucose (UA) Urine Ketones Urine Blood Urine Nitrate Urine Bilirubin Urine Urobilinogen Ur Leukocyte Esterase Urine RBC (Auto) Urine Microscopic WBC Ur Squamous Epith Cells Urine Bacteria Influenza Typ A,B (EIA)
[2017-11-16 10:03] LABS: LYMPHOCYTE 12 % (20-50); MONOCYTE 5 % (0-10); NEUTROPHIL 83 % (42-75); PLATELET ESTIMATE NORMAL (NORMAL); TOTAL CELLS COUNTED 100
[2017-11-16 10:04] LABS: ANISOCYTOSIS SLIGHT; OVALOCYTES SLIGHT
--- NOTE | 2017-11-16 18:29 | CARD ---
APPROVED REPORT EKG Measurement Heart [id number] <Conclusion> Sinus bradycardia ST & T wave abnormality, consider anterior ischemia Abnormal ECG
--- NOTE | 2017-11-16 19:11 | CP.PCM.PN ---
Subjective - Date & Time of Evaluation Date of Evaluation: 11/16/17 Time of Evaluation: 11:30 - Subjective Subjective: Patient seen and examined bedside. Sitting in chair , awake, alert in NAD. Oriented to place and self but unable to tell the year. When asked where she will go when discharged she stated she does not know. Complains of nasal congestion and frontal PINEDA Hemodynamically stable, afebrile on 1:1 for safety Objective - Vital Signs/Intake and Output Vital Signs (last 24 hours): Temp Pulse Resp BP Pulse Ox 98.8 F 58 L 18 143/82 97 11/16/17 15:38 11/16/17 15:38 11/16/17 15:38 11/16/17 15:38 11/16/17 15:38 - Medications Medications: Current Medications Acetaminophen (Tylenol 325mg Tab) 650 mg PO Q6 PRN PRN Reason: Pain, Mild (1-3) Acetaminophen (Tylenol 325mg Tab) 650 mg PO Q6 PRN PRN Reason: Fever >100.4 F Aspirin (Aspirin Chewable) 81 mg PO DAILY [facility] Last Admin: 11/16/17 09:00 Dose: 81 mg Atorvastatin Calcium (Lipitor) 40 mg PO DAILY [facility] Last Admin: 11/16/17 10:00 Dose: 40 mg Enoxaparin Sodium (Lovenox) 40 mg SC DAILY [facility] PRN Reason: Protocol Last Admin: 11/16/17 09:00 Dose: 40 mg Hydrochlorothiazide (Microzide) 12.5 mg PO DAILY [facility] Last Admin: 11/16/17 09:00 Dose: 12.5 mg Ceftriaxone Sodium 1 gm/ (Sodium Chloride) 100 mls @ 100 mls/hr IVPB DAILY [facility] PRN Reason: Protocol Last Admin: 11/16/17 09:00 Dose: 100 mls/hr Levothyroxine Sodium (Synthroid) 150 mcg PO DAILY@0630 [facility] Last Admin: 11/16/17 06:14 Dose: 150 mcg Losartan Potassium (Cozaar) 100 mg PO DAILY [facility] Last Admin: 11/16/17 09:00 Dose: Not Given Memantine (Namenda) 5 mg PO BID [facility] Last Admin: 11/16/17 17:01 Dose: 5 mg Ondansetron HCl (Zofran Inj) 4 mg IVP Q6 PRN PRN Reason: Nausea/Vomiting Pantoprazole Sodium (Protonix Ec Tab) 40 mg PO DAILY [facility] Last Admin: 11/16/17 09:00 Dose: 40 mg - Labs Labs: 11/16/17 04:50 11/16/17 04:50 PT 11.5 Seconds (9.8-13.1) 11/16/17 04:50 INR 1.0 (0.9-1.2) 11/16/17 04:50 APTT 32.7 Seconds (25.6-37.1) 11/16/17 04:50 - Constitutional Appears: Non-toxic, No Acute Distress, Other (obese ) - Head Exam Head Exam: ATRAUMATIC, NORMAL INSPECTION, NORMOCEPHALIC - Eye Exam Eye Exam: EOMI, PERRL Pupil Exam: NORMAL ACCOMODATION - ENT Exam ENT Exam: Mucous Membranes Moist, Normal Exam - Neck Exam Neck Exam: Full ROM, Normal Inspection - Respiratory Exam Respiratory Exam: Clear to Ausculation Bilateral, NORMAL BREATHING PATTERN. absent: Rhonchi, Wheezes - Cardiovascular Exam Cardiovascular Exam: REGULAR RHYTHM, RRR, +S1, +S2. absent: JVD - GI/Abdominal Exam GI & Abdominal Exam: Soft, Normal Bowel Sounds. absent: Distended, Guarding, Tenderness, Rebound - Rectal Exam Rectal Exam: Deferred - Extremities Exam Extremities Exam: Full ROM, Normal Capillary Refill, Normal Inspection. absent : Pedal Edema - Back Exam Back Exam: NORMAL INSPECTION - Neurological Exam Neurological Exam: Alert, Awake, CN II-XII Intact Additional comments: oriented to self and place - Psychiatric Exam Psychiatric exam: Normal Affect - Skin Skin Exam: Dry, Normal Color, Warm Assessment and Plan - Assessment and Plan (Free Text) Assessment: 72 y/o female with PMH HTN, Lewy body dementia, hypothyroidism, TIA was brought down to ER for evaluation from 4 N for Altered mental status and confusion . As per staff patient's girlfriend has been admitted in the hospital a couple of days ago and since than patient has not left her side. As per staff they noticed patient getting more confused , wandering in the unit, without knowing where she was and what she was doing , unable to answer questions appropriately . Her CT head showed no acute pathology. Patient oriented only to self with no gross neuro deficits , unable to provide history or ROS. As per friend and girlfriend patient has lewy body dementia. As per neurologist patient most likely had delirium with acute psychosis. 1. Altered Mental status most likely delirium related to dementia and sleep deprivation CT head showed no acute pathology consulted Dr. Echols neuro who knows patient from before and case discussed . Most likely patient has episode of acute delirium and psychosis and recommended psych eval Psychiatry evaluation appreciated . They recommended continuation of 1 ;1 and avoidance of antipsychotic meds influenza test-negative UA showed bacteria and LE. Started rocephin IV for possible UTI. Will follow up urine cx CXR showed no active disease continue 1 :1 for safety / fall precautions SW / case liner eval for discharge planning 2. Hypothyroidims uncontrolled as per girlfriend patient is not compliant with medications TSH 99 resumed Synthroid 150 mchg po Qd ( home dose ) will call endo consult with Dr. Cruz 3. HTN controlled continue home meds 4. Lewy body dementia neuro consult appreciated psych eval appreciated 5. Suspected UTI follow up urine cx continue rocephin IV 6. Acute Kidney Injury improving with IVF repeat BMP in Am 7. Dyslipidemia started Statin 8. URI with nasal congestion influenza negative started nasal decongestant 9. DVT prophylaxis SCD lovenox
[2017-11-16] MEDS ORDERED: Phenylephrine 0.5% Nasal Spray NAS PRN (19:52)
[2017-11-16] MEDS ORDERED: Levothyroxine 200 mcg (0.2 mg) Inj IVP STA (21:57)
--- NOTE | 2017-11-17 04:21 | CON ---
DATE: ENDOCRINOLOGY CONSULTATION LOCATION: Room 407, bed 2. HISTORY OF PRESENT ILLNESS: This is a 72-year-old female with known history of hypothyroidism and admitted today for progressively worsening confusion, disorientation and generalized body weakness where she was observed actually in the telemetry unit as she never left the bedside of her domestic partner since her admission a week ago. She was noted by the nursing staff to be increasingly confused and disoriented and agitated and was referred to the emergency room for further workup and management. PAST MEDICAL HISTORY: As mentioned above, history of hypertension, dyslipidemia and hypothyroidism as noted. She has also had progressively worsening dementia possibly of Alzheimer's type and has been taking Namenda medications as noted. FAMILY HISTORY: Positive for diabetes and hypertension. SOCIAL HISTORY: The patient has supportive family. She actually lives with her domestic partner or girlfriend who is currently a patient in [address] [place] [address] as noted. No known substance use. REVIEW OF SYSTEMS: As mentioned above, has increasing dizziness, lightheadedness and generalized body weakness with suboptimal energy level, has also been noted by the nursing staff to have increasing confusion, disorientation, hypersomnolence and lethargy with increasing agitation and restlessness as noted. No chest pains or palpitations or PNDs. She has also been having increasing bouts of shortness of breath especially on exertion, but no recent chest pains or palpitations or PNDs. Her oral intake has been variable with nausea, dyspepsia and habitual constipation. No recent alterations of a urinary patterns otherwise. PHYSICAL EXAMINATION: GENERAL: This Is an is obese female, in no apparent distress. VITAL SIGNS: Blood pressure of 140/80, pulse of 60 beats per minute and regular, temperature 97, respirations 20, height is 5 feet 2 inches, weight is 200 pounds. HEENT: Head normocephalic. Eyes anicteric with pale conjunctivae. Funduscopy is not possible at this time. Ears, nose and throat otherwise normal. She also has periorbital and facial edema as noted. NECK: Supple. The neck exam shows nodular thyromegaly, which is firm and nontender with no overt nodules or bruits at this time. CARDIOPULMONARY: Some adynamic precordium. S1, S2 is slow and regular. LUNGS: Clear to auscultation. ABDOMEN: Obese, soft with positive bowel sounds. EXTREMITIES: No peripheral edema. Pulses are +2 bilaterally. LABORATORY DATA: The chemistry showed TSH of 99.00, the cholesterol is 343, triglycerides 121, HDL 90, LDL 206. The chemistry showed a BUN of 16, sodium 142, potassium 4.3, chloride 101, CO2 28, glucose 101 and creatinine 1.2. ASSESSMENT: This is a 72-year-old female with marked hypothyroidism both historically, clinically and biochemically with known history of prior longstanding hypothyroidism and the possibility of drug omission because of her underlying dementia. This is a very strong possibility for the aforementioned condition. She most likely has the so-called autoimmune thyroiditis and/or Jackie thyroiditis with a concomitant diffuse nontoxic goiter with no overt compressive manifestations thereof. The underlying marked dyslipidemia is clearly metabolic in nature related to the underlying marked hypothyroidism with reduced clearance of the LDL cholesterol and total cholesterol thereof. PLAN OF MANAGEMENT: As discussed with the staff, we will give her a stat dose tonight of levothyroxine given as 200 mcg by slow IV push tonight as ordered. Then tomorrow morning, we will start her with a daily dose of levothyroxine given as 100 mcg IV push daily every morning as ordered for the next 4 days. We will obtain a comprehensive thyroid hormonal profile tomorrow with a total and free T4 and TSH and the thyroid peroxidase and thyroglobulin antibody as ordered. This will confirm and/or indicate the presence of thyroid autoimmunity. A 25 hydroxy vitamin D level and serial chemistries will be obtained accordingly. We will follow this. Meme Cruz MD
[2017-11-17 07:23] LABS: HEMOGLOBIN 14.3 g/dL (12.0-16.0); MEAN CELL VOLUME 94.8 fl (81.0-99.0); MEAN CORPUSCULAR HEMOGLOBIN 31.6 pg (27.0-31.0); MEAN CORPUSCULAR HGB CONC 33.3 g/dL (33.0-37.0); RBC 4.53 Mil/uL (3.80-5.20); RED CELL DISTRIBUTION WIDTH 15.5 % (11.5-14.5); WHITE BLOOD COUNT 4.8 K/uL (4.8-10.8)
[2017-11-17 07:46] LABS: ALB/GLOB RATIO 1.3 (1.0-2.1); ALBUMIN 4.3 g/dL (3.5-5.0); CALCIUM 9.4 mg/dL (8.4-10.2)
[2017-11-17 07:47] LABS: T4 4.57 ug/dl (5.5-11.0)
[2017-11-17] MEDS: Enoxaparin 40 mg Syringe SC SCH (08:48)
[2017-11-17] MEDS: Pantoprazole 40 mg EC Tab PO SCH (08:49)
[2017-11-17] MEDS: Levothyroxine 100 mcg (0.1 mg) Inj IVP SCH (08:50)
--- NOTE | 2017-11-17 09:20 | CP.PCM.PN ---
Subjective - Date & Time of Evaluation Date of Evaluation: 11/17/17 Time of Evaluation: 09:00 - Subjective Subjective: Answers most of the questions with "I don't remember" Ate her breakfast Vital signs stable Pt back on Thyroid replacement Stable from cardiac point of view Will sign off/ Call me as needed Objective - Vital Signs/Intake and Output Vital Signs (last 24 hours): Temp Pulse Resp BP Pulse Ox 99.4 F 59 L 20 121/66 96 11/17/17 08:00 11/17/17 08:52 11/17/17 08:00 11/17/17 08:52 11/17/17 08:00 - Medications Medications: Current Medications Acetaminophen (Tylenol 325mg Tab) 650 mg PO Q6 PRN PRN Reason: Pain, Mild (1-3) Last Admin: 11/16/17 20:10 Dose: 650 mg Acetaminophen (Tylenol 325mg Tab) 650 mg PO Q6 PRN PRN Reason: Fever >100.4 F Aspirin (Aspirin Chewable) 81 mg PO DAILY [facility] Last Admin: 11/17/17 08:49 Dose: 81 mg Atorvastatin Calcium (Lipitor) 40 mg PO DAILY [facility] Last Admin: 11/17/17 08:50 Dose: 40 mg Enoxaparin Sodium (Lovenox) 40 mg SC DAILY [facility] PRN Reason: Protocol Last Admin: 11/17/17 08:48 Dose: 40 mg Hydrochlorothiazide (Microzide) 12.5 mg PO DAILY [facility] Last Admin: 11/17/17 08:50 Dose: 12.5 mg Ceftriaxone Sodium 1 gm/ (Sodium Chloride) 100 mls @ 100 mls/hr IVPB DAILY [facility] PRN Reason: Protocol Last Admin: 11/17/17 08:48 Dose: 100 mls/hr Levothyroxine Sodium (Synthroid) 100 mcg IVP DAILY [facility] Stop: 11/20/17 10:00 Last Admin: 11/17/17 08:50 Dose: 100 mcg Losartan Potassium (Cozaar) 100 mg PO DAILY [facility] Last Admin: 11/17/17 08:52 Dose: Not Given Memantine (Namenda) 5 mg PO BID [facility] Last Admin: 11/17/17 08:49 Dose: 5 mg Ondansetron HCl (Zofran Inj) 4 mg IVP Q6 PRN PRN Reason: Nausea/Vomiting Pantoprazole Sodium (Protonix Ec Tab) 40 mg PO DAILY [facility] Last Admin: 11/17/17 08:49 Dose: 40 mg Phenylephrine HCl (Steve-Synephrine 0.5% Nasal [place]) 1 spry KAY Q4 PRN PRN Reason: Nasal congestion - Labs Labs: 11/17/17 06:00 11/17/17 06:00 PT 11.5 Seconds (9.8-13.1) 11/16/17 04:50 INR 1.0 (0.9-1.2) 11/16/17 04:50 APTT 32.7 Seconds (25.6-37.1) 11/16/17 04:50
--- NOTE | 2017-11-17 12:35 | CP.PCM.PN ---
Subjective - Date & Time of Evaluation Date of Evaluation: 11/17/17 Time of Evaluation: 12:32 - Subjective Subjective: pt is answering all questions with " i dont know" and states she is very tired and does not wish to participate in any examination pt is HD stable NAD Objective - Vital Signs/Intake and Output Vital Signs (last 24 hours): Temp Pulse Resp BP Pulse Ox 99.4 F 59 L 20 121/66 96 11/17/17 08:00 11/17/17 08:52 11/17/17 08:00 11/17/17 08:52 11/17/17 08:00 patient refused exam this morning - Medications Medications: Current Medications Acetaminophen (Tylenol 325mg Tab) 650 mg PO Q6 PRN PRN Reason: Pain, Mild (1-3) Last Admin: 11/16/17 20:10 Dose: 650 mg Acetaminophen (Tylenol 325mg Tab) 650 mg PO Q6 PRN PRN Reason: Fever >100.4 F Aspirin (Aspirin Chewable) 81 mg PO DAILY [facility] Last Admin: 11/17/17 08:49 Dose: 81 mg Atorvastatin Calcium (Lipitor) 40 mg PO DAILY [facility] Last Admin: 11/17/17 08:50 Dose: 40 mg Enoxaparin Sodium (Lovenox) 40 mg SC DAILY [facility] PRN Reason: Protocol Last Admin: 11/17/17 08:48 Dose: 40 mg Hydrochlorothiazide (Microzide) 12.5 mg PO DAILY [facility] Last Admin: 11/17/17 08:50 Dose: 12.5 mg Ceftriaxone Sodium 1 gm/ (Sodium Chloride) 100 mls @ 100 mls/hr IVPB DAILY [facility] PRN Reason: Protocol Last Admin: 11/17/17 08:48 Dose: 100 mls/hr Levothyroxine Sodium (Synthroid) 100 mcg IVP DAILY [facility] Stop: 11/20/17 10:00 Last Admin: 11/17/17 08:50 Dose: 100 mcg Losartan Potassium (Cozaar) 100 mg PO DAILY [facility] Last Admin: 11/17/17 08:52 Dose: Not Given Memantine (Namenda) 5 mg PO BID [facility] Last Admin: 11/17/17 08:49 Dose: 5 mg Ondansetron HCl (Zofran Inj) 4 mg IVP Q6 PRN PRN Reason: Nausea/Vomiting Pantoprazole Sodium (Protonix Ec Tab) 40 mg PO DAILY [facility] Last Admin: 11/17/17 08:49 Dose: 40 mg Phenylephrine HCl (Steve-Synephrine 0.5% Nasal [place]) 1 spry KAY Q4 PRN PRN Reason: Nasal congestion - Labs Labs: 11/17/17 06:00 11/17/17 06:00 PT 11.5 Seconds (9.8-13.1) 11/16/17 04:50 INR 1.0 (0.9-1.2) 11/16/17 04:50 APTT 32.7 Seconds (25.6-37.1) 11/16/17 04:50 Assessment and Plan - Assessment and Plan (Free Text) Plan: 72 y/o female with PMH HTN, Lewy body dementia, hypothyroidism, TIA was brought down to ER for evaluation from 4 N for Altered mental status and confusion . As per staff patient's girlfriend has been admitted in the hospital a couple of days ago and since than patient has not left her side. As per staff they noticed patient getting more confused , wandering in the unit, without knowing where she was and what she was doing , unable to answer questions appropriately . Her CT head showed no acute pathology. Patient oriented only to self with no gross neuro deficits , unable to provide history or ROS. As per friend and girlfriend patient has lewy body dementia. As per neurologist patient most likely had delirium with acute psychosis. 11/17 patient states she does not wish to answer any questions this morning. we will continue current management. 1. Altered Mental status most likely delirium related to dementia and sleep deprivation CT head showed no acute pathology consulted Dr. Echols neuro who knows patient from before and case discussed . Most likely patient has episode of acute delirium and psychosis and recommended psych eval Psychiatry evaluation appreciated . They recommended continuation of 1 ;1 and avoidance of antipsychotic meds influenza test-negative UA showed bacteria and LE. Started rocephin IV for possible UTI. Will follow up urine cx CXR showed no active disease continue 1 :1 for safety / fall precautions SW / showcase maker eval for discharge planning 2. Hypothyroidism uncontrolled as per girlfriend patient is not compliant with medications TSH 99 resumed Synthroid 150 mchg po Qd ( home dose ) will call endo consult with Dr. Cruz 3. HTN controlled continue home meds 4. Lewy body dementia neuro consult appreciated psych eval appreciated 5. Suspected UTI follow up urine cx continue rocephin IV 6. Acute Kidney Injury improving with IVF repeat BMP in Am 7. Dyslipidemia started Statin 8. URI with nasal congestion influenza negative started nasal decongestant 9. DVT prophylaxis SCD lovenox
[2017-11-18] MEDS: Enoxaparin 40 mg Syringe SC SCH (09:31)
[2017-11-18] MEDS: Pantoprazole 40 mg EC Tab PO SCH (09:33)
[2017-11-18] MEDS: Levothyroxine 100 mcg (0.1 mg) Inj IVP SCH (09:35)
--- NOTE | 2017-11-18 09:55 | CP.PCM.PN ---
Subjective - Date & Time of Evaluation Date of Evaluation: 11/18/17 Time of Evaluation: 09:30 - Subjective Subjective: No fever remains confused- on 1:1 Obs complainsof knee pain denies CP no SOB no abd pain Uncooperative with Physical exam and testing Objective - Vital Signs/Intake and Output Vital Signs (last 24 hours): Temp Pulse Resp BP Pulse Ox 98.6 F 64 20 131/77 95 11/18/17 08:00 11/18/17 09:33 11/18/17 08:00 11/18/17 09:33 11/18/17 08:00 - Medications Medications: Current Medications Acetaminophen (Tylenol 325mg Tab) 650 mg PO Q6 PRN PRN Reason: Pain, Mild (1-3) Last Admin: 11/16/17 20:10 Dose: 650 mg Acetaminophen (Tylenol 325mg Tab) 650 mg PO Q6 PRN PRN Reason: Fever >100.4 F Aspirin (Aspirin Chewable) 81 mg PO DAILY [facility] Last Admin: 11/18/17 09:33 Dose: 81 mg Atorvastatin Calcium (Lipitor) 40 mg PO DAILY [facility] Last Admin: 11/18/17 09:34 Dose: 40 mg Enoxaparin Sodium (Lovenox) 40 mg SC DAILY [facility] PRN Reason: Protocol Last Admin: 11/18/17 09:31 Dose: 40 mg Hydrochlorothiazide (Microzide) 12.5 mg PO DAILY [facility] Last Admin: 11/18/17 09:33 Dose: 12.5 mg Ceftriaxone Sodium 1 gm/ (Sodium Chloride) 100 mls @ 100 mls/hr IVPB DAILY [facility] PRN Reason: Protocol Last Admin: 11/18/17 09:37 Dose: 100 mls/hr Levothyroxine Sodium (Synthroid) 100 mcg IVP DAILY [facility] Stop: 11/20/17 10:00 Last Admin: 11/18/17 09:35 Dose: 100 mcg Losartan Potassium (Cozaar) 100 mg PO DAILY [facility] Last Admin: 11/18/17 09:33 Dose: 100 mg Memantine (Namenda) 5 mg PO BID [facility] Last Admin: 11/18/17 09:34 Dose: 5 mg Ondansetron HCl (Zofran Inj) 4 mg IVP Q6 PRN PRN Reason: Nausea/Vomiting Pantoprazole Sodium (Protonix Ec Tab) 40 mg PO DAILY [facility] Last Admin: 11/18/17 09:33 Dose: 40 mg Phenylephrine HCl (Steve-Synephrine 0.5% Nasal [place]) 1 spry KAY Q4 PRN PRN Reason: Nasal congestion Last Admin: 11/18/17 09:31 Dose: 1 spr - Labs Labs: 11/17/17 06:00 11/17/17 06:00 PT 11.5 Seconds (9.8-13.1) 11/16/17 04:50 INR 1.0 (0.9-1.2) 11/16/17 04:50 APTT 32.7 Seconds (25.6-37.1) 11/16/17 04:50 - Constitutional Appears: No Acute Distress, Older Than Stated Age, Chronically Ill - Head Exam Head Exam: NORMAL INSPECTION, NORMOCEPHALIC - Eye Exam Eye Exam: EOMI, Normal appearance Pupil Exam: NORMAL ACCOMODATION - ENT Exam ENT Exam: Mucous Membranes Moist, Normal External Ear Exam - Neck Exam Neck Exam: Full ROM. absent: Meningismus - Respiratory Exam Respiratory Exam: Rhonchi, NORMAL BREATHING PATTERN. absent: Rales, Wheezes, Respiratory Distress - Cardiovascular Exam Cardiovascular Exam: REGULAR RHYTHM, +S1, +S2 - GI/Abdominal Exam GI & Abdominal Exam: Soft, Normal Bowel Sounds. absent: Tenderness - Extremities Exam Extremities Exam: Calf Tenderness, Normal Capillary Refill - Back Exam Back Exam: absent: CVA tenderness (L), CVA tenderness (R) - Neurological Exam Neurological Exam: Alert, Awake Additional comments: oriented to person only uncooperative - Psychiatric Exam Psychiatric exam: Flat Affect - Skin Skin Exam: Dry, Normal Color, Warm Assessment and Plan - Assessment and Plan (Free Text) Assessment: 72 y/o female with PMH HTN, Lewy body dementia, hypothyroidism, TIA was brought down to ER for Altered mental status /confusion . As per staff patient' s girlfriend has been admitted in the hospital ( 4N) a couple of days ago and since than patient has not left her side. As per staff they noticed patient getting more confused , wandering in the unit, without knowing where she was and what she was doing , unable to answer questions appropriately . Her CT head showed no acute pathology. Patient oriented only to self with no gross neuro deficits , unable to provide history or ROS. As per neurologist patient most likely had delirium with acute psychosis. 1. Altered Mental status most likely delirium related to dementia and sleep deprivation CT head showed no acute pathology consulted Dr. Echols neuro who knows patient from before and case discussed . Most likely patient has episode of acute delirium and psychosis and recommended psych eval Psychiatry evaluation appreciated . They recommended continuation of 1 ;1 and avoidance of antipsychotic meds influenza test-negative UA showed bacteria and LE. Started rocephin IV for possible UTI. Will follow up urine cx CXR showed no active disease continue 1 :1 for safety / fall precautions SW / upper caser eval for discharge planning 2. Hypothyroidism uncontrolled as per girlfriend patient is not compliant with medications TSH 99 Dr Natalio started IV Levothyroxine (Synthroid 150 mchg po Qd - home dose ) 3. HTN controlled continue home meds 4. Lewy body dementia neuro consulted psych consulted 5. Suspected UTI continue rocephin IV Urine c/s : pending 6. Acute Kidney Injury, improved improving with IVF 7. Dyslipidemia cont Statin 8. URI with nasal congestion influenza negative 9. Leg Pain ? tenderness on the left - Doppler US of LE ordered however pt refused to have it done 9. DVT prophylaxis SCD lovenox
--- NOTE | 2017-11-18 22:26 | PN ---
DATE: ENDOCRINOLOGY FOLLOWUP NOTE LOCATION: Room 407, bed 2. SUBJECTIVE: This is a 72-year-old female with recent constitutional symptoms and altered mental status, currently slowly improving both clinically and metabolically as noted thereof. She was found to have marked hypothyroidism, again both historically, clinically, and biochemically as noted and was given right away IV levothyroxine therapy as given and noted. Her latest thyroid study showed a T4 of 4.57 with a free T4 of 0.19 and a TSH of 84.90. Her serum cortisol level was 18.7 mcg/dL and the expected markedly elevated serum cholesterol of 329 also has been noted. This is related to the marked hypothyroidism with reduced clearance of the cholesterol and LDL cholesterol levels as expected. Her latest chemistry showed a BUN of 13, sodium 141, potassium 3.7, chloride 98, CO2 of 32, glucose 94, and creatinine 1.2. So, at this time, we will continue the levothyroxine given as 100 mcg IV push once daily as ordered. We will obtain repeat thyroid studies tomorrow morning and adjust her dose regimen accordingly. Because of the severe and marked gastric mucosal edema, would expect impaired obstruction of any oral medications, especially the oral levothyroxine medications as given. As her thyroid levels improve, then we can restart her back and resume the oral levothyroxine as indicated. We will follow. Meme Cruz MD
[2017-11-19 06:32] LABS: ALB/GLOB RATIO 1.3 (1.0-2.1); ALBUMIN 4.5 g/dL (3.5-5.0); CALCIUM 9.5 mg/dL (8.4-10.2)
[2017-11-19 06:33] LABS: T4 5.04 ug/dl (5.5-11.0)
--- NOTE | 2017-11-19 08:37 | PN ---
DATE: ENDOCRINOLOGY FOLLOWUP NOTE LOCATION: Room 407, bed 2. SUBJECTIVE: This is a 72-year-old female with recent bouts of progressively worsening confusion, disorientation and generalized body weakness and evaluated to have marked hypothyroidism noted both historically, clinically and biochemically as noted thereof. She received parenteral levothyroxine at a stat dose of 200 mcg last night as given by slow IV push and very well tolerated thereof. Today, she has slightly improved clinically and metabolically as noted with the latest chemistry showing a BUN of 13, sodium 141, potassium 3.7, chloride 98, CO2 of 32, glucose 94 and creatinine 1.2. Her thyroid studies showed a T4 of 4.57 with a TSH of 0.19, both of which are low as noted. Her TSH is markedly elevated at 84.90, but has improved since the initial level of 99.00 milliunits/mL. So, at this time, we will continue the same levothyroxine given parenterally at a dose of 100 mcg IV push once daily in the morning as ordered. With the current clinical evidence of near myxedema, unexpected gastric mucosal edema, this would hamper the oral absorption of levothyroxine as given. So, it is preferred that we give the levothyroxine by IV push to enhance absorption of the medication and also to improve her clinical and metabolic well-being thereof. We will obtain serial thyroid studies and adjust her dose regimen accordingly. We will also obtain thyroid antibodies, which will confirm and/or negate the presence of thyroid autoimmunity. We will follow serial chemistries and supplement accordingly as needed. Meme Cruz MD
[2017-11-19] MEDS: Pantoprazole 40 mg EC Tab PO SCH (09:03)
[2017-11-19] MEDS: Levothyroxine 100 mcg (0.1 mg) Inj IVP SCH (09:05)
[2017-11-19] MEDS: Enoxaparin 40 mg Syringe SC SCH (09:07)
--- NOTE | 2017-11-19 17:13 | CP.PCM.PN ---
Subjective - Date & Time of Evaluation Date of Evaluation: 11/19/17 Time of Evaluation: 17:00 - Subjective Subjective: Patient seen and examined. Sitting in chair comfortable. Answering questions appropriately , pleasant today,following commands , agrees to go to [facility] . Denies any pain or discomfort . hemodynamically stable, afebrile No acute issues overnight d/c 1:1 Objective - Vital Signs/Intake and Output Vital Signs (last 24 hours): Temp Pulse Resp BP Pulse Ox 97.0 F L 59 L 20 102/64 95 11/19/17 15:57 11/19/17 15:57 11/19/17 15:57 11/19/17 15:57 11/19/17 15:57 - Medications Medications: Current Medications Acetaminophen (Tylenol 325mg Tab) 650 mg PO Q6 PRN PRN Reason: Pain, Mild (1-3) Last Admin: 11/19/17 05:09 Dose: 650 mg Acetaminophen (Tylenol 325mg Tab) 650 mg PO Q6 PRN PRN Reason: Fever >100.4 F Aspirin (Aspirin Chewable) 81 mg PO DAILY [facility] Last Admin: 11/19/17 09:02 Dose: 81 mg Atorvastatin Calcium (Lipitor) 40 mg PO DAILY [facility] Last Admin: 11/19/17 09:02 Dose: 40 mg Enoxaparin Sodium (Lovenox) 40 mg SC DAILY [facility] PRN Reason: Protocol Last Admin: 11/19/17 09:07 Dose: 40 mg Hydrochlorothiazide (Microzide) 12.5 mg PO DAILY [facility] Last Admin: 11/19/17 09:03 Dose: Not Given Ceftriaxone Sodium 1 gm/ (Sodium Chloride) 100 mls @ 100 mls/hr IVPB DAILY [facility] PRN Reason: Protocol Last Admin: 11/19/17 09:04 Dose: 100 mls/hr Levothyroxine Sodium (Synthroid) 100 mcg IVP DAILY [facility] Stop: 11/20/17 10:00 Last Admin: 11/19/17 09:05 Dose: 100 mcg Losartan Potassium (Cozaar) 100 mg PO DAILY [facility] Last Admin: 11/19/17 09:02 Dose: Not Given Memantine (Namenda) 5 mg PO BID [facility] Last Admin: 11/19/17 09:03 Dose: 5 mg Ondansetron HCl (Zofran Inj) 4 mg IVP Q6 PRN PRN Reason: Nausea/Vomiting Pantoprazole Sodium (Protonix Ec Tab) 40 mg PO DAILY [facility] Last Admin: 11/19/17 09:03 Dose: 40 mg Phenylephrine HCl (Steve-Synephrine 0.5% Nasal [place]) 1 spry KAY Q4 PRN PRN Reason: Nasal congestion Last Admin: 11/18/17 09:31 Dose: 1 spr - Labs Labs: 11/17/17 06:00 11/19/17 04:30 PT 11.5 Seconds (9.8-13.1) 11/16/17 04:50 INR 1.0 (0.9-1.2) 11/16/17 04:50 APTT 32.7 Seconds (25.6-37.1) 11/16/17 04:50 - Constitutional Appears: Non-toxic, No Acute Distress - Head Exam Head Exam: ATRAUMATIC, NORMAL INSPECTION, NORMOCEPHALIC - Eye Exam Eye Exam: EOMI, Normal appearance, PERRL Pupil Exam: NORMAL ACCOMODATION - ENT Exam ENT Exam: Mucous Membranes Moist, Normal Exam - Neck Exam Neck Exam: Full ROM, Normal Inspection - Respiratory Exam Respiratory Exam: Clear to Ausculation Bilateral, NORMAL BREATHING PATTERN. absent: Rales, Rhonchi, Wheezes - Cardiovascular Exam Cardiovascular Exam: REGULAR RHYTHM, RRR, +S1, +S2. absent: JVD - GI/Abdominal Exam GI & Abdominal Exam: Soft, Normal Bowel Sounds. absent: Distended, Guarding, Rebound - Rectal Exam Rectal Exam: Deferred - Extremities Exam Extremities Exam: Full ROM, Normal Capillary Refill, Normal Inspection. absent : Calf Tenderness, Pedal Edema - Back Exam Back Exam: NORMAL INSPECTION - Neurological Exam Neurological Exam: Alert, Awake, CN II-XII Intact, Oriented x3 - Psychiatric Exam Psychiatric exam: Normal Affect - Skin Skin Exam: Dry, Intact, Normal Color, Warm Assessment and Plan - Assessment and Plan (Free Text) Assessment: 72 y/o female with PMH HTN, Lewy body dementia, hypothyroidism, TIA was brought down to ER for Altered mental status /confusion . As per staff patient' s girlfriend had been admitted in the hospital ( 4N) a couple of days ago and since than patient has not left her side. As per staff they noticed patient getting more confused , wandering in the unit, without knowing where she was and what she was doing , unable to answer questions appropriately . Her CT head showed no acute pathology. Patient oriented only to self with no gross neuro deficits , unable to provide history or ROS. As per neurologist patient most likely had delirium with acute psychosis. At present she is awake, alert oriented to self , place and time. At times gets confused .Follows commands and answers questions. Agrees to go to [facility] 1. Altered Mental status most likely delirium related to dementia and sleep deprivation CT head showed no acute pathology consulted Dr. Echols neuro who knows patient from before and case discussed . Most likely patient had episode of acute delirium and psychosis and recommended psych eval Psychiatry evaluation appreciated . They recommended 1 ;1 and avoidance of antipsychotic meds influenza test-negative UA showed bacteria and LE. Started rocephin IV for possible UTI. Urine cx not sent CXR showed no active disease Will d/c 1:1 since patient is more awake , alert and calm. Place close to nursing station and on [employer] / manager of case management eval for discharge planning-- D/c to [facility] ( POA agreeable ) 2. Hypothyroidism uncontrolled as per girlfriend patient is not compliant with medications TSH 99 Dr Cruz consulted and started IV Levothyroxine. (Synthroid 150 mcg po Qd - home dose ) 3. HTN controlled continue home meds 4. Lewy body dementia neuro consulted psych consulted on memantine 5. Suspected UTI continue rocephin IV ( for 5 days) Urine c/s :not sent 6. Acute Kidney Injury, improved improving with IVF 7. Dyslipidemia cont Statin 8. URI with nasal congestion influenza negative symptomatic treatment 9. Leg Pain-- resolved ? tenderness on the left - Doppler US of LE ordered however pt refused to have it done 9. DVT prophylaxis SCD lovenox
--- NOTE | 2017-11-20 05:07 | PN ---
DATE: LOCATION: Room 667. SUBJECTIVE: This is a 72-year-old female with recent evaluation of marked hypothyroidism both historically, clinically and biochemically, now with improving physical and clinical well-being and is also being followed closely for metabolic management. Her glycemic levels are near optimal as noted and the latest chemistry showed a BUN of 19, sodium 141, potassium 3.4, chloride 97, CO2 of 33, glucose 94 and creatinine 1.2. Her latest thyroid study showed a T4 of 5.04 with a TSH of 75.10 and a free T4 of 0.44. So at this time, we will continue the IV levothyroxine given as 100 mcg IV push once daily in the morning as ordered. We will also continue the serial chemistries and serial thyroid studies and we will titrate her dose regimen accordingly. The thyroid peroxidase and thyroglobulin antibodies have been sent out to a reference lab and this will confirm and/or negate the presence of underlying thyroid autoimmunity. She will eventually be switched over to oral levothyroxine as her thyroid studies improve accordingly. With a near myxedema and expected gastric mucosal edema with impaired obstruction of oral levothyroxine, we have decided to give her IV levothyroxine since admission as ordered. We will also obtain a thyroid ultrasound as she is more metabolically stable at this time to fully delineate the thyroid lobe dimension and also screen for any underlying nodules and/or cysts as indicated. We will obtain serial thyroid studies and titrate her dose regimen accordingly. We will follow. Meme Cruz MD
[2017-11-20] MEDS: Enoxaparin 40 mg Syringe SC SCH (09:10)
[2017-11-20] MEDS: Pantoprazole 40 mg EC Tab PO SCH (09:11)
[2017-11-20] MEDS: Levothyroxine 100 mcg (0.1 mg) Inj IVP SCH (10:53)
--- NOTE | 2017-11-20 13:36 | CP.PCM.PN ---
Subjective - Date & Time of Evaluation Date of Evaluation: 11/20/17 Time of Evaluation: 12:00 - Subjective Subjective: Patient seen and examined bedside. Sitting in chair in NAD. Pleasant, answering questions appropriately Hemodynamically stable, afebrile Agrees to [facility] Waiting for placement Objective - Vital Signs/Intake and Output Vital Signs (last 24 hours): Temp Pulse Resp BP Pulse Ox 97.7 F 75 20 114/71 95 11/20/17 08:05 11/20/17 09:11 11/20/17 08:05 11/20/17 09:11 11/20/17 08:05 - Medications Medications: Current Medications Acetaminophen (Tylenol 325mg Tab) 650 mg PO Q6 PRN PRN Reason: Pain, Mild (1-3) Last Admin: 11/20/17 03:02 Dose: 650 mg Acetaminophen (Tylenol 325mg Tab) 650 mg PO Q6 PRN PRN Reason: Fever >100.4 F Aspirin (Aspirin Chewable) 81 mg PO DAILY [facility] Last Admin: 11/20/17 09:11 Dose: 81 mg Atorvastatin Calcium (Lipitor) 40 mg PO DAILY [facility] Last Admin: 11/20/17 09:12 Dose: Not Given Enoxaparin Sodium (Lovenox) 40 mg SC DAILY [facility] PRN Reason: Protocol Last Admin: 11/20/17 09:10 Dose: 40 mg Hydrochlorothiazide (Microzide) 12.5 mg PO DAILY [facility] Last Admin: 11/20/17 09:11 Dose: 12.5 mg Ceftriaxone Sodium 1 gm/ (Sodium Chloride) 50 mls @ 50 mls/hr IVPB DAILY [facility] PRN Reason: Protocol Losartan Potassium (Cozaar) 100 mg PO DAILY [facility] Last Admin: 11/20/17 09:11 Dose: 100 mg Memantine (Namenda) 5 mg PO BID [facility] Last Admin: 11/20/17 09:11 Dose: 5 mg Ondansetron HCl (Zofran Inj) 4 mg IVP Q6 PRN PRN Reason: Nausea/Vomiting Pantoprazole Sodium (Protonix Ec Tab) 40 mg PO DAILY [facility] Last Admin: 11/20/17 09:11 Dose: 40 mg Phenylephrine HCl (Steve-Synephrine 0.5% Nasal [place]) 1 spry KAY Q4 PRN PRN Reason: Nasal congestion Last Admin: 11/18/17 09:31 Dose: 1 spr - Labs Labs: 11/17/17 06:00 11/19/17 04:30 PT 11.5 Seconds (9.8-13.1) 11/16/17 04:50 INR 1.0 (0.9-1.2) 11/16/17 04:50 APTT 32.7 Seconds (25.6-37.1) 11/16/17 04:50 - Constitutional Appears: Non-toxic, No Acute Distress - Head Exam Head Exam: ATRAUMATIC, NORMAL INSPECTION, NORMOCEPHALIC - Eye Exam Eye Exam: EOMI, Normal appearance, PERRL Pupil Exam: NORMAL ACCOMODATION - ENT Exam ENT Exam: Mucous Membranes Moist, Normal Exam - Neck Exam Neck Exam: Full ROM, Normal Inspection - Respiratory Exam Respiratory Exam: Clear to Ausculation Bilateral, NORMAL BREATHING PATTERN. absent: Rales, Rhonchi, Wheezes - Cardiovascular Exam Cardiovascular Exam: REGULAR RHYTHM, RRR, +S1, +S2. absent: JVD - GI/Abdominal Exam GI & Abdominal Exam: Soft, Normal Bowel Sounds. absent: Distended, Guarding, Tenderness, Rebound - Rectal Exam Rectal Exam: Deferred - Extremities Exam Extremities Exam: absent: Pedal Edema Additional comments: left knee surgical scar - Neurological Exam Neurological Exam: Alert, Awake, CN II-XII Intact Additional comments: oriented to person , place and time pleasant, answering question appropriately Following commands - Psychiatric Exam Psychiatric exam: Normal Affect - Skin Skin Exam: Dry, Intact, Normal Color, Warm Assessment and Plan - Assessment and Plan (Free Text) Assessment: 72 y/o female with PMH HTN, Lewy body dementia, hypothyroidism, TIA was brought down to ER for Altered mental status /confusion . As per staff patient' s girlfriend had been admitted in the hospital ( 4N) a couple of days ago and since than patient has not left her side. As per staff they noticed patient getting more confused , wandering in the unit, without knowing where she was and what she was doing , unable to answer questions appropriately . Her CT head showed no acute pathology. Patient oriented only to self with no gross neuro deficits , unable to provide history or ROS. As per neurologist patient most likely had delirium with acute psychosis. At present she is awake, alert oriented to self , place and time. At times gets confused .Follows commands and answers questions. Agrees to go to [facility] 1. Altered Mental status most likely delirium related to dementia and sleep deprivation CT head showed no acute pathology consulted Dr. Echols neuro who knows patient from before and case discussed . Most likely patient had episode of acute delirium and psychosis and recommended psych eval Psychiatry evaluation appreciated . They recommended 1 ;1 and avoidance of antipsychotic meds influenza test-negative UA showed bacteria and LE. Started rocephin IV for possible UTI. Urine cx not sent CXR showed no active disease off 1:1 since patient is more awake , alert and calm. Placed close to nursing station and on [employer] / therapeutic case manager eval for discharge planning-- D/c to [facility] ( POA agreeable ) 2. Hypothyroidism uncontrolled as per girlfriend patient is not compliant with medications TSH 99 Dr Cruz consulted and started IV Levothyroxine 100 mcg daily (Synthroid 150 mcg po Qd - home dose ) 3. HTN controlled continue home meds 4. Lewy body dementia neuro consulted psych consulted on memantine 5. Suspected UTI continue rocephin IV ( for 5 days) Urine c/s :not sent 6. Acute Kidney Injury, improved improving with IVF 7. Dyslipidemia cont Statin 8. URI - resolved with nasal congestion influenza negative symptomatic treatment 9. Leg Pain-- resolved ? tenderness on the left Doppler US of LE ordered however pt refused to have it done 9. DVT prophylaxis SCD lovenox
--- NOTE | 2017-11-20 14:48 | US ---
HISTORY: multinodular goiter/hypothyroidism TECHNIQUE: Grayscale imaging was performed. COMPARISON: None FINDINGS: RIGHT LOBE: Measures 1.7 x 0.8 x 0.7 cm. There is diffuse heterogeneous echotexture with diminished vascularity. Nodules: None LEFT LOBE: Measures 1.5 x 1.0 x 0.7 cm. There is diffuse heterogeneous echotexture with diminished vascularity. Nodules: None ISTHMUS: Measures 0.2 cm. There is diffuse heterogeneous echotexture with diminished vascularity. Nodules: None OTHER FINDINGS: None . IMPRESSION: Small heterogeneous hypervascular thyroid gland without discrete solid or cystic nodule.
--- NOTE | 2017-11-20 23:12 | PN ---
DATE: ENDOCRINOLOGY FOLLOWUP NOTE LOCATION: Room 407, bed 2. SUBJECTIVE: This is a 72-year-old female with recent overt hypothyroidism both historically, clinically and biochemically and tolerating the levothyroxine given parenterally as noted and ordered. Her glycemic levels are much improved at this time and are ranging from 89 to 94 mg/dL. Her latest chemistry showed a BUN of 19, sodium 141, potassium 3.4, chloride 97, CO2 of 33, glucose 94 and creatinine 1.2. Latest thyroid studies showed a T4 of 5.04 with a TSH of 75.10 and a free T4 of 0.44. So at this time, we will continue the levothyroxine given parenterally at 100 mcg IV push as ordered every morning. We will obtain repeat thyroid studies tomorrow morning and we will decide to switch her over to oral levothyroxine medications as indicated to optimize metabolic control. We will obtain serial chemistries and supplement accordingly as needed. We will follow. Meme Cruz MD
[2017-11-21] MEDS ORDERED: Levothyroxine 100 mcg (0.1 mg) Inj IVP SCH (06:30)
[2017-11-21 07:24] LABS: T4 6.45 ug/dl (5.5-11.0)
[2017-11-21 07:35] LABS: ALB/GLOB RATIO 1.2 (1.0-2.1); ALBUMIN 4.3 g/dL (3.5-5.0); CALCIUM 9.6 mg/dL (8.4-10.2)
[2017-11-21] MEDS: Enoxaparin 40 mg Syringe SC SCH (10:00)
[2017-11-21] MEDS: Pantoprazole 40 mg EC Tab PO SCH (10:00)
--- NOTE | 2017-11-21 13:16 | CP.PCM.PN ---
Subjective - Date & Time of Evaluation Date of Evaluation: 11/21/17 Time of Evaluation: 13:00 - Subjective Subjective: Patient seen and examined bedside. Feeling better. Denies any pain or discomfort . Following commands and answers questions appropriately Hemodynamically stable, afebrile Creatinine trending up 1.3 BUN 23 TSH 69 Waiting for [facility] placement Objective - Vital Signs/Intake and Output Vital Signs (last 24 hours): Temp Pulse Resp BP Pulse Ox 98.6 F 76 20 113/65 99 11/21/17 07:58 11/21/17 07:58 11/21/17 07:58 11/21/17 07:58 11/21/17 07:58 - Medications Medications: Current Medications Acetaminophen (Tylenol 325mg Tab) 650 mg PO Q6 PRN PRN Reason: Pain, Mild (1-3) Last Admin: 11/20/17 03:02 Dose: 650 mg Acetaminophen (Tylenol 325mg Tab) 650 mg PO Q6 PRN PRN Reason: Fever >100.4 F Aspirin (Aspirin Chewable) 81 mg PO DAILY [facility] Last Admin: 11/20/17 09:11 Dose: 81 mg Atorvastatin Calcium (Lipitor) 40 mg PO DAILY [facility] Last Admin: 11/20/17 09:12 Dose: Not Given Enoxaparin Sodium (Lovenox) 40 mg SC DAILY [facility] PRN Reason: Protocol Last Admin: 11/20/17 09:10 Dose: 40 mg Hydrochlorothiazide (Microzide) 12.5 mg PO DAILY [facility] Last Admin: 11/20/17 09:11 Dose: 12.5 mg Ceftriaxone Sodium 1 gm/ (Sodium Chloride) 50 mls @ 50 mls/hr IVPB DAILY [facility] PRN Reason: Protocol Last Admin: 11/20/17 14:28 Dose: 50 mls/hr Levothyroxine Sodium (Synthroid) 100 mcg IVP DAILY@0630 [facility] Last Admin: 11/21/17 07:12 Dose: 100 mcg Losartan Potassium (Cozaar) 100 mg PO DAILY [facility] Last Admin: 11/20/17 09:11 Dose: 100 mg Memantine (Namenda) 5 mg PO BID [facility] Last Admin: 11/20/17 16:11 Dose: 5 mg Ondansetron HCl (Zofran Inj) 4 mg IVP Q6 PRN PRN Reason: Nausea/Vomiting Pantoprazole Sodium (Protonix Ec Tab) 40 mg PO DAILY [facility] Last Admin: 11/20/17 09:11 Dose: 40 mg Phenylephrine HCl (Steve-Synephrine 0.5% Nasal [place]) 1 spry KAY Q4 PRN PRN Reason: Nasal congestion Last Admin: 11/18/17 09:31 Dose: 1 spr - Labs Labs: 11/17/17 06:00 11/21/17 06:05 PT 11.5 Seconds (9.8-13.1) 11/16/17 04:50 INR 1.0 (0.9-1.2) 11/16/17 04:50 APTT 32.7 Seconds (25.6-37.1) 11/16/17 04:50 - Constitutional Appears: Non-toxic, No Acute Distress - Head Exam Head Exam: ATRAUMATIC, NORMAL INSPECTION, NORMOCEPHALIC - Eye Exam Eye Exam: EOMI, Normal appearance, PERRL Pupil Exam: NORMAL ACCOMODATION - ENT Exam ENT Exam: Mucous Membranes Moist, Normal Exam - Respiratory Exam Respiratory Exam: Clear to Ausculation Bilateral, NORMAL BREATHING PATTERN. absent: Rales, Rhonchi, Wheezes, Respiratory Distress - Cardiovascular Exam Cardiovascular Exam: REGULAR RHYTHM, RRR, +S1, +S2. absent: JVD - GI/Abdominal Exam GI & Abdominal Exam: Soft, Normal Bowel Sounds. absent: Distended, Guarding, Tenderness, Rebound - Rectal Exam Rectal Exam: Deferred - Extremities Exam Extremities Exam: Full ROM, Normal Capillary Refill, Normal Inspection. absent : Pedal Edema - Back Exam Back Exam: NORMAL INSPECTION - Neurological Exam Neurological Exam: Alert, Awake, CN II-XII Intact, Oriented x3 Additional comments: pleasantly demented - Psychiatric Exam Psychiatric exam: Normal Affect - Skin Skin Exam: Dry, Intact, Warm Assessment and Plan - Assessment and Plan (Free Text) Assessment: 72 y/o female with PMH HTN, Lewy body dementia, hypothyroidism, TIA was brought down to ER for Altered mental status /confusion . As per staff patient' s girlfriend had been admitted in the hospital ( 4N) a couple of days ago and since than patient has not left her side. As per staff they noticed patient getting more confused , wandering in the unit, without knowing where she was and what she was doing , unable to answer questions appropriately . Her CT head showed no acute pathology. Patient oriented only to self with no gross neuro deficits , unable to provide history or ROS. As per neurologist patient most likely had delirium with acute psychosis. At present she is awake, alert oriented to self , place and time. At times gets confused .Follows commands and answers questions. Agrees to go to [facility] Creatinine trending up a little BUN/ cr 23/1.3 1. DAVID Bun / Cr 23/1.3 Most likely prerenal D/c HCTZ , D/c rocephin promote PO intake, consider starting IV repeat BMP in AM 2. Altered Mental status-- improved with baseline dementia most likely delirium related to dementia and sleep deprivation CT head showed no acute pathology consulted Dr. Echols neuro who knows patient from before and case discussed . Most likely patient had episode of acute delirium and psychosis and recommended psych eval Psychiatry evaluation appreciated . They recommended avoidance of antipsychotic meds influenza test-negative UA showed bacteria and LE. Started rocephin IV for possible UTI. Urine cx not sent CXR showed no active disease off 1:1 since patient is more awake , alert and calm. Placed close to nursing station and on [email or web address] / outsole caser eval for discharge planning-- D/c to [facility] ( POA agreeable ) 3. Hypothyroidism uncontrolled as per girlfriend patient is not compliant with medications TSH [address] Cruz consulted and started IV Levothyroxine 100 mcg daily Repeat TSH today 69 4. HTN controlled continue Losartan ( d/c HCTZ due to worsening renal function ) 5. Lewy body dementia neuro consulted psych consulted on memantine 6. Suspected UTI Received Rocephin for 7 days Urine c/s :not sent 7. Dyslipidemia cont Statin 8. URI - resolved with nasal congestion influenza negative symptomatic treatment 9. Leg Pain-- resolved ? tenderness on the left Doppler US of LE ordered however pt refused to have it done 9. DVT prophylaxis SCD lovenox
--- NOTE | 2017-11-21 14:31 | US ---
HISTORY: r/o DVT . PRIORS: Left lower extremity ultrasound dated 10/18/2015. FINDINGS: 2-D, color and duplex Doppler analysis of the lower extremity venous circulation using routine protocol from the femoral veins through the popliteal veins. Venous compressibility: Normal. Flow and augmentation patterns: Normal. Visualized veins upper third of calf: Normal. Portillo cyst: None. IMPRESSION: No sonographic or Doppler evidence for DVT in left lower extremity.
--- NOTE | 2017-11-21 15:28 | PN ---
DATE: ENDOCRINOLOGY FOLLOWUP NOTE LOCATION: Room 407. SUBJECTIVE: This is a 72-year-old female with recent overt hypothyroidism and associated near myxedema and has been started on IV or parenteral levothyroxine replacement therapy as given. She received a bolus dose of 200 mcg on admission and has now been receiving levothyroxine at 100 mcg IV push daily as ordered. Her thyroid studies today have been sent out and are pending and we will adjust her dose regimen accordingly and also consider the switching over from IV to oral levothyroxine as indicated. Her latest thyroid study showed a T4 of 5.04 with a TSH of 75.10 and a free T4 of 0.44. We will await the completion of her thyroid reports today and adjust her dose accordingly. For now, we will continue the levothyroxine given at 100 mcg IV push daily as ordered. We will obtain serial chemistries and supplement accordingly needed. We will follow. Meme Cruz MD
[2017-11-22] MEDS ORDERED: Levothyroxine 150 MCG TAB PO SCH (06:30)
[2017-11-22 06:42] LABS: CALCIUM 9.5 mg/dL (8.4-10.2)
[2017-11-22 07:53] VITALS: BP 105/66; PULSE 65; RESP 20; TEMP 97.8; O2SAT 97
[2017-11-22] MEDS: Pantoprazole 40 mg EC Tab PO SCH (08:58)
[2017-11-22] MEDS: Enoxaparin 40 mg Syringe SC SCH (08:59)
--- NOTE | 2017-11-22 11:30 | CP.PCM.DIS ---
Provider - Provider Date of Admission: 11/15/17 09:43 Attending physician: Susana Jeffrey MD Primary care physician: Dr Juhi Abdi Consults: Cardio : Dr Juhi Abdi Neurology : Dr Rivas Psych: Dr Sifuentes Endo : DR Cruz Time Spent in preparation of Discharge (in minutes): 25 Diagnosis - Discharge Diagnosis (1) Delirium Status: Acute (2) Altered mental status Status: Acute (3) Lewy body dementia with behavioral disturbance Status: Chronic (4) HTN (hypertension) Status: Chronic (5) Hypothyroidism Status: Chronic (6) DAVID (acute kidney injury) Status: Acute (7) UTI (urinary tract infection) Status: Acute Hospital Course - Lab Results Lab Results: Most Recent Lab Values WBC 4.8 K/uL (4.8-10.8) 11/17/17 06:00 RBC 4.53 Mil/uL (3.80-5.20) 11/17/17 06:00 Hgb 14.3 g/dL (12.0-16.0) 11/17/17 06:00 Hct 42.9 % (34.0-47.0) 11/17/17 06:00 MCV 94.8 fl (81.0-99.0) 11/17/17 06:00 MCH 31.6 pg (27.0-31.0) H 11/17/17 06:00 MCHC 33.3 g/dL (33.0-37.0) 11/17/17 06:00 RDW 15.5 % (11.5-14.5) H 11/17/17 06:00 Plt Count 220 K/uL (130-400) 11/17/17 06:00 MPV 9.0 fl (7.2-11.7) 11/16/17 04:50 Neut % (Auto) 82.5 % (50.0-75.0) H 11/16/17 04:50 Lymph % (Auto) 9.7 % (20.0-40.0) L 11/16/17 04:50 [place] % (Auto) 6.7 % (0.0-10.0) 11/16/17 04:50 Eos % (Auto) 0.4 % (0.0-4.0) 11/16/17 04:50 Baso % (Auto) 0.7 % (0.0-2.0) 11/16/17 04:50 Neut # 6.5 K/uL (1.8-7.0) 11/16/17 04:50 Lymph # 0.8 K/uL (1.0-4.3) L 11/16/17 04:50 [place] # 0.5 K/uL (0.0-0.8) 11/16/17 04:50 Eos # 0.0 K/uL (0.0-0.7) 11/16/17 04:50 Baso # 0.1 K/uL (0.0-0.2) 11/16/17 04:50 Neutrophils % (Manual) 83 % (42-75) H 11/16/17 04:50 Lymphocytes % (Manual) 12 % (20-50) L 11/16/17 04:50 Monocytes % (Manual) 5 % (0-10) 11/16/17 04:50 Platelet Estimate Normal (NORMAL) 11/16/17 04:50 Anisocytosis (manual) Slight 11/16/17 04:50 Ovalocytes Slight 11/16/17 04:50 PT 11.5 Seconds (9.8-13.1) 11/16/17 04:50 INR 1.0 (0.9-1.2) 11/16/17 04:50 APTT 32.7 Seconds (25.6-37.1) 11/16/17 04:50 Sodium 142 mmol/l (132-148) 11/22/17 05:50 Potassium 3.7 MMOL/L (3.6-5.0) 11/22/17 05:50 Chloride 100 mmol/L (98-107) 11/22/17 05:50 Carbon Dioxide 32 mmol/L (22-30) H 11/22/17 05:50 Anion Gap 14 (10-20) 11/22/17 05:50 BUN 26 mg/dl (7-17) H 11/22/17 05:50 Creatinine 1.1 mg/dl (0.7-1.2) 11/22/17 05:50 Est GFR ( Amer) 59 11/22/17 05:50 Est GFR (Non-Af Amer) 49 11/22/17 05:50 POC Glucose (mg/dL) 83 mg/dL (65-110) 11/22/17 11:08 Random Glucose 109 mg/dL (65-105) H 11/22/17 05:50 Hemoglobin A1c 5.9 % (4.2-6.5) 11/15/17 14:38 Calcium 9.5 mg/dL (8.4-10.2) 11/22/17 05:50 Total Bilirubin 0.7 mg/dl (0.2-1.3) 11/21/17 06:05 AST 125 U/L (14-36) H D 11/21/17 06:05 ALT 83 U/L (9-52) H 11/21/17 06:05 Alkaline Phosphatase 70 U/L (38-126) 11/21/17 06:05 Troponin I < 0.0120 ng/mL (0.00-0.120) 11/15/17 08:35 Total Protein 7.7 G/DL (6.3-8.2) 11/21/17 06:05 Albumin 4.3 g/dL (3.5-5.0) 11/21/17 06:05 Globulin 3.4 gm/dL (2.2-3.9) 11/21/17 06:05 Albumin/Globulin Ratio 1.2 (1.0-2.1) 11/21/17 06:05 Triglycerides 126 mg/DL (0-149) 11/17/17 06:00 Cholesterol 329 mg/dL (0-199) H 11/17/17 06:00 LDL Cholesterol Direct 190 mg/dL (0-129) H 11/17/17 06:00 HDL Cholesterol 82 MG/DL (30-70) H 11/17/17 06:00 Vitamin B12 362 pg/mL (239-931) 11/19/17 04:30 25-OH Vitamin D Total < 12.8 NG/ML (30.0-100.0) L 11/17/17 06:00 Free T4 0.58 ng/dL (0.78-2.19) L 11/21/17 06:05 Thyroxine (T4) 6.45 ug/dl (5.5-11.0) 11/21/17 06:05 TSH 3rd Generation 69.10 mIU/ML (0.46-4.68) H 11/21/17 06:05 Cortisol AM Sample 18.7 ug/dL (4.46-22.7) 11/17/17 06:00 Urine Color Yellow (YELLOW) 11/15/17 09:41 Urine Clarity Cloudy (Clear) 11/15/17 09:41 Urine pH 5.0 (5.0-8.0) 11/15/17 09:41 Ur Specific [place] 1.028 (1.003-1.030) 11/15/17 09:41 Urine Protein 100 mg/dL (NEGATIVE) 11/15/17 09:41 Urine Glucose (UA) Neg mg/dL (Normal) 11/15/17 09:41 Urine Ketones Negative mg/dL (NEGATIVE) 11/15/17 09:41 Urine Blood Moderate (NEGATIVE) 11/15/17 09:41 Urine Nitrate Negative (NEGATIVE) 11/15/17 09:41 Urine Bilirubin Negative (NEGATIVE) 11/15/17 09:41 Urine Urobilinogen 0.2-1.0 mg/dL (0.2-1.0) 11/15/17 09:41 Ur Leukocyte Esterase Mod [place]/uL (Negative) 11/15/17 09:41 Urine RBC (Auto) 6 /hpf (0-3) H 11/15/17 09:41 Urine Microscopic WBC 10 /hpf (0-5) H 11/15/17 09:41 Ur Squamous Epith Cells 4 /hpf (0-5) 11/15/17 09:41 Urine Bacteria Few (<OCC) H 11/15/17 09:41 Alcohol, Quantitative < 10 mg/dl (0-10) 11/15/17 08:35 Thyroperoxidase Ab 1 IU/mL (<9) 11/17/17 06:00 Thyroglobulin Antibody <1 IU/mL (< OR = 1) 11/17/17 06:00 Influenza Typ A,B (EIA) Negative for flu a/b (NEGATIVE) 11/15/17 17:10 - Hospital Course Hospital Course: 72 y/o female with PMH HTN, Lewy body dementia, hypothyroidism, TIA was brought down to ER for Altered mental status /confusion . As per staff patient' s girlfriend had been admitted in the hospital ( 4N) a couple of days ago and since than patient has not left her side. As per staff they noticed patient getting more confused , wandering in the unit, without knowing where she was and what she was doing , unable to answer questions appropriately . Her CT head showed no acute pathology. Patient oriented only to self with no gross neuro deficits , unable to provide history or ROS. As per neurologist patient most likely had delirium with acute psychosis. At present she is awake, alert oriented to self , place. At times gets confused .Follows commands and answers questions. Agrees to go to [facility]. Altered Mental status due to Delirium. History of Lewy Body Dementia with Behavioral changes most likely delirium related to dementia and sleep deprivation CT head showed no acute pathology consulted Dr. Rivas Pt's Neuro, who knows patient from before . Most likely patient had episode of acute delirium and psychosis and recommended psych eval Psychiatry evaluation appreciated . They recommended avoidance of antipsychotic meds influenza test-negative UA showed bacteria and LE. Started rocephin IV for possible UTI. CXR showed no active disease Pt now awake , alert and calm. Placed close to nursing station and on Avasyst D/c to [facility] 2. DAVID Bun / Cr 23/1.3 Most likely prerenal D/c HCTZ , D/c rocephin promote PO intake 3. Hypothyroidism uncontrolled as per girlfriend patient is not compliant with medications TSH [address] Cruz consulted and started IV Levothyroxine 100 mcg daily Repeat TSH 69 restart PO Levothyroxine 150mcg daily ( home dose) 4. HTN controlled continue Losartan ( d/c HCTZ due to worsening renal function ) 5. Lewy body dementia neuro consulted psych consulted on Namenda 6. UTI Received Rocephin for 7 days Urine c/s :not sent 7. Dyslipidemia cont Statin 8. URI - resolved with nasal congestion influenza negative symptomatic treatment 9. Leg Pain-- resolved ? tenderness on the left Doppler US of LE ordered however pt refused to have it done 9. DVT prophylaxis SCD lovenox Discharge Exam - Head Exam Head Exam: ATRAUMATIC, NORMAL INSPECTION, NORMOCEPHALIC - Eye Exam Eye Exam: EOMI, Normal appearance Pupil Exam: NORMAL ACCOMODATION - ENT Exam ENT Exam: Mucous Membranes Moist, Normal External Ear Exam - Neck Exam Neck exam: Full Rom - Respiratory Exam Respiratory Exam: NORMAL BREATHING PATTERN. absent: Rales, Wheezes, Respiratory Distress - Cardiovascular Exam Cardiovascular Exam: REGULAR RHYTHM, +S1, +S2 - GI/Abdominal Exam GI & Abdominal Exam: Normal Bowel Sounds, Soft. absent: Tenderness - Extremities Exam Extremities exam: full ROM, normal capillary refill, pedal pulses present - Back Exam Back exam: FULL ROM. absent: CVA tenderness (L), CVA tenderness (R) - Neurological Exam Neurological exam: Alert, CN II-XII Intact, Oriented x3, Reflexes Normal Additional comments: oriented to person and place - Psychiatric Exam Psychiatric exam: Normal Affect, Normal Mood - Skin Skin Exam: Dry, Normal Color, Warm Discharge Plan - Follow Up Plan Condition: IMPROVED Disposition: TRANSF TO SNF Instructions: Altered Mental Status (GEN) Additional Instructions: d/c to [facility] ff up with Dr Rivas in 2-3 wks ff up with Dr Abdi after d/c from [facility]
--- NOTE | 2017-11-22 19:28 | PN ---
DATE: ENDOCRINOLOGY FOLLOWUP NOTE LOCATION: In room 667. SUBJECTIVE: This is a 72-year-old female with recent admission for marked hypothyroidism and myxedema, now being followed closely for metabolic management. She has improved clinically and metabolically as noted thereof. LABORATORY DATA: The latest chemistry showed a BUN of 26, sodium of 142, potassium of 3.7, chloride of 100, CO2 of 32, glucose of 109, and creatinine of 1.1. Her latest thyroid study showed a T4 of 6.45 with a TSH of 69.10 and a free T4 of 0.58. ASSESSMENT AND PLAN: So, at this time, we will repeat the thyroid studies to optimize her metabolic control. We will also repeat the chemistry and supplement accordingly as needed. In the meantime, we will continue the oral levothyroxine given as 150 mcg daily as ordered. We will titrate incrementally as indicated to optimize metabolic control. We will follow and advise accordingly. Meme Cruz MD
== END 2017-11-22 15:59 | DRG 57 ==
LOC: H.ER 08:03 → H.ERHOLD 09:43 → H.TEL 12:17 → H.MEDSURG1 11-19 22:39
PROVIDERS: ADMIT Hospitalist; ATTEND Hospitalist
DX: G31.83 Neurocognitive disorder with Lewy bodies (principal); N17.9 Acute kidney failure, unspecified; N39.0 Urinary tract infection, site not specified; F02.81 Dementia in other diseases classified elsewhere, unspecified severity, with behavioral disturbance; F05 Delirium due to known physiological condition; E03.9 Hypothyroidism, unspecified; E66.09 Other obesity due to excess calories; G31.84 Mild cognitive impairment of uncertain or unknown etiology; Z68.36 Body mass index [BMI] 36.0-36.9, adult; E78.5 Hyperlipidemia, unspecified; Z72.820 Sleep deprivation; Z86.73 Personal history of transient ischemic attack (TIA), and cerebral infarction without residual deficits; Z91.83 Wandering in diseases classified elsewhere; J06.9 Acute upper respiratory infection, unspecified; I10 Essential (primary) hypertension; M79.605 Pain in left leg

== ENCOUNTER 2018-03-18 16:15 | Inpatient (IN) | payer MEDICARE, BC ==
[2018-03-18 16:15] VITALS: BMI 36.6
[2018-03-18] MEDS ORDERED: Famotidine 20mg/50ml Premix IVPB STA (17:04)
[2018-03-18] MEDS ORDERED: Famotidine 20mg/50ml 20 MG/50 ML BAG IVPB ONE ×2 (17:15→17:26)
--- NOTE | 2018-03-18 17:22 | ED PDOC ---
HPI: General Adult Time Seen by Provider: 03/18/18 16:50 Chief Complaint (Nursing): Abdominal Pain Chief Complaint (Provider): abdominal pain History Per: Patient, Family (friend of pt's cousin) History/Exam Limitations: no limitations Onset/Duration Of Symptoms: Hrs (2) Have you had recent travel within the past 21 days to any of the following countries: [place], [place], [place] or [place]?: No Current Symptoms Are (Timing): Better Severity: Severe Pain Scale Rating Of: 8 Additional Complaint(s): pt p/w + sudden onset of epigastric pain that radiates to mid back and mildly spread into her lower regions of sternum, at most pain is 8/10; pt states this pain started this afternoon, 1-2 hours prior to ED arrival; pt states + nausea and general unwell/malaise feeling, no appetite, pt did eat earlier; pt states no fever, +chills, no sweats, no cp/sob, no palpitations, no bowel/urinary changes, last BM was 1-2 days ago, no gross bleeding, no fall/trauma/sick contact, no travel; pt + felt mild dizzy/lightheaded, no LOC pt denied gonzales pt denied other complaints pt is here for further eval PCP: Jessica? pt lives at home with family Past Medical History Reviewed: Historical Data, Nursing Documentation, Vital Signs Vital Signs: Last Vital Signs Temp 97.7 F 03/18/18 16:19 Pulse 57 L 03/18/18 19:46 Resp 18 03/18/18 19:46 BP 154/73 H 03/18/18 19:46 Pulse Ox 98 03/18/18 20:08 - Medical History PMH: Alzheimer's Disease, Arthritis, Asthma, Diverticulitis, HTN, Hypothyroidism , TIA Denies: CHF, COPD, HIV, Hypercholesterolemia, Chronic Kidney Disease, Rheumatoid Arthritis - Surgical History Surgical History: Tonsillectomy - Family History Family History: States: Unknown Family Hx - Living Arrangements Living Arrangements: With Family - Social History Current smoker - smoking cessation education provided: No Ex-Smoker (has not smoked in the last 12 months): No Alcohol: None Drugs: Denies - Immunization History Hx Tetanus Toxoid Vaccination: No Hx Influenza Vaccination: No Hx Pneumococcal Vaccination: No - Home Medications Home Medications: Ambulatory Orders Medication Instructions Recorded Memantine HCl [Namenda Xr] 14 mg PO DAILY 09/07/16 Acetaminophen [Tylenol 325mg tab] 650 mg PO Q6 PRN tab 11/22/17 Acetaminophen [Tylenol 325mg tab] 650 mg PO Q6 PRN tab 11/22/17 Aspirin [Aspirin Chewable] 81 mg PO DAILY chew 11/22/17 Atorvastatin [Lipitor] 40 mg PO DAILY@2100 tab 11/22/17 Levothyroxine [Synthroid] 150 mcg PO DAILY@0630 tab 11/22/17 Losartan [Cozaar] 100 mg PO DAILY tab 11/22/17 Pantoprazole [Protonix EC Tab] 40 mg PO DAILY ect 11/22/17 - Allergies Allergies/Adverse Reactions: Allergies Allergy/AdvReac Type Severity Reaction Status Date / Time terbinafine HCl Allergy RASH Verified 03/18/18 16:19 [From Lamisil] famciclovir [From Famvir] AdvReac SHORTNESS Verified 03/18/18 16:19 OF BREATH Review of Systems ROS Statement: Except As Marked, All Systems Reviewed And Found Negative Constitutional: Positive for: Chills, Weakness, Malaise. Negative for: Fever, Sweats, Weight loss Eyes: Negative for: Pain ENT: Negative for: Ear Pain Cardiovascular: Negative for: Chest Pain, Palpitations Respiratory: Negative for: Cough, Shortness of Breath, SOB with Exertion Gastrointestinal: Positive for: Nausea, Abdominal Pain. Negative for: Vomiting Genitourinary Female: Negative for: Dysuria, Hematuria Musculoskeletal: Negative for: Neck Pain, Back Pain Skin: Negative for: Rash Neurological: Positive for: Weakness, Dizziness. Negative for: Altered Mental Status, Headache Psych: Negative for: Anxiety, Depression Physical Exam - Reviewed Nursing Documentation Reviewed: Yes Vital Signs Reviewed: Yes (elevated BP) - Physical Exam Comments: General: alert/awake, GCS = 15, oriented x 2 (not to date/time), resting in bed , uncomfortable, cooperative, interactive; mildly in distress due to pain Head: NC/AT; bi-temporal wasting EYE: PERRLA, EOMI, sclera anicteric, no nystagmus, no photophobia; visual field intact b/l Facial: WNL Oral: uvula/tongue are midline, no exudate/lesions, no drooling/stridor, no dysphonia; intact dentitions; mild dry oral mucosa NECK: intact ROM, no midline tenderness, no nuchal rigidity, no meningeal signs ; no step off Chest: CTA b/l, no w/r/r; no tachypenia, no accessory muscle use noted Cardiac: +S1, +S2, no m/r/r, no tachycardia Abdominal: +BS, soft/nd, well nourished/obese patient; + mid abd tenderness, + marmolejo's sign, no masses/rebound/guarding/rigidity; no mcburney's point tenderness Extremities: intact ROM, strength 5/5 grossly intact in all limbs, neurovasc intact b/l; + ambulatory; reflex +2/2; + 1-2/5 b/l lower ext pitting edema up to distal 1/3 of the lower leg; no clraa's sign b/l BACK: no step off, no midline tenderness, NO crepitus, no gross deformities noted; Intact ROM SKIN: cap refill < 1 sec, no ulcerations, no petechiae, no rashes NEURO: CNII-XII WNL, no facial asymmetries, no slurr speech, oriented x 2 (not to date/time) NIH stroke scale ~ 0 Psych: normal insight, normal affect; follows command with ease - Laboratory Results Result Diagrams: 03/18/18 17:53 03/18/18 17:53 Interpretation Of Abnormal: elevated LFTs/mildly elevated LIPASE Urine dip results: Positive for: Blood - ECG ECG: Positive for: Interpreted By Me, Viewed By Me Interpretation Of ECG: sinus rhythm at 60 bpm, normal axis, + sinus arrhythmia, no st-t changes, otherwise WNL EKG; no gross changes compare with old ekg 02/2018 O2 Sat by Pulse Oximetry: 98 Pulse Ox Interpretation: Normal - Radiology X-Ray: Interpreted by Me, Viewed By Me, Read By Radiologist - Progress ED Course And Treament: prelim reading CXR - NAD, as read by me 6:30pm - pt felt improved, pt states after the mediations, no pain currently, no nausea pt is awaiting CT abd/pelvis 7:05pm - pt is endorsed to overnight ED attending, Dr Acosta, awaiting CT results , re-eval, pt can be dispositioned accordingly Re-evaluation Time: 18:50 Condition: Improved Medical Decision Making Medical Decision Making: Impression: epigastric pain i have consider all the differential diagnosis regarding pt's chief medical complaints/clinical findings, including but are not limited to: epigastric pain , unlikely acs, will r/o choley/abd pathology A/P: epigastric pain - labs - ekg - iv - ct - ua - supportive care - observe/reevaluation Disposition - Clinical Impression Clinical Impression: Epigastric pain, Elevated LFTs, Nausea - Patient ED Disposition Is Patient to be Admitted: Transfer of Care Discussed With DrJoao: Yony Acosta Counseled Patient/Family Regarding: Studies Performed, Diagnosis, Rx Given - Disposition Disposition Time: 19:10 Condition: STABLE Forms: [employer] ([place]ian)
[2018-03-18] MEDS ORDERED: Morphine 4 MG/ML VIAL ONE (17:26)
[2018-03-18 17:39] LABS: SQUAMOUS EPITHIAL < 1 /hpf (0-5); URINE BILIRUBIN NEGATIVE (NEGATIVE); URINE BLOOD MODERATE (NEGATIVE); URINE CLARITY CLEAR (Clear); URINE COLOR STRAW (YELLOW); URINE GLUCOSE (UA) NEG (Normal); URINE LEUKOCYTE ESTERASE NEG Leu/uL (Negative); URINE PROTEIN NEGATIVE (NEGATIVE); URINE UROBILINOGEN 0.2-1.0 mg/dL (0.2-1.0)
[2018-03-18] MEDS: Sodium Chloride 0.9% 1,000 ML IV SCH (17:42)
[2018-03-18 17:58] LABS: BASO # 0.1 K/uL (0.0-0.2); BASO % 0.8 % (0.0-2.0); EOS # 0.1 K/uL (0.0-0.7); EOS % 1.4 % (0.0-4.0); HEMOGLOBIN 13.4 g/dL (12.0-16.0); LYMPH # 0.8 K/uL (1.0-4.3); LYMPH % 9.5 % (20.0-40.0); MEAN CELL VOLUME 92.8 fl (81.0-99.0); MEAN CORPUSCULAR HGB CONC 33.5 g/dL (33.0-37.0); MEAN PLATELET VOLUME 8.8 fl (7.2-11.7); MONO # 0.6 K/uL (0.0-0.8); MONO % 6.5 % (0.0-10.0); NEUT # 7.1 K/uL (1.8-7.0); NEUT % 81.8 % (50.0-75.0); PLATELET COUNT 245 K/uL (130-400); RBC 4.33 Mil/uL (3.80-5.20); RED CELL DISTRIBUTION WIDTH 13.4 % (11.5-14.5)
[2018-03-18 18:08] LABS: WHITE BLOOD COUNT 8.6 K/uL (4.8-10.8)
[2018-03-18 18:11] LABS: ALB/GLOB RATIO 1.2 (1.0-2.1); ALBUMIN 3.9 g/dL (3.5-5.0); ALT/SGPT 142 U/L (9-52); AST/SGOT 190 U/L (14-36); BLOOD UREA NITROGEN 21 mg/dl (7-17); CALCIUM 9.3 mg/dL (8.4-10.2); GFR AFRICAN-AMERICAN > 60; GFR NON-AFRICAN AMERICAN > 60; LIPASE 353 U/L (23-300)
[2018-03-18] MEDS ORDERED: Sodium Chloride 0.9% 50 ML IV ONE (19:04)
[2018-03-18] MEDS ORDERED: Iohexol 300 100 ML IJ ONE (19:04)
--- NOTE | 2018-03-18 19:20 | ED PDOC ---
- Laboratory Results Result Diagrams: 03/18/18 17:53 03/18/18 17:53 - ECG O2 Sat by Pulse Oximetry: 98 (RA) Pulse Ox Interpretation: Normal Medical Decision Making Medical Decision Making: Time: 1899 Patient signed out to me by Dr. Gustafson pending CT abdomen and pelvis and reevaluation. Time: 2031 CT Scan ABD PELVIS IV CONTRAST ONLY Exam Date: 03/18/18 This imaging exam was performed at [facility] EXAM: CT Abdomen and Pelvis With Intravenous Contrast EXAM DATE/TIME: 03/18/2018 5:02 PM CLINICAL HISTORY: 72 years old, female; Pain and signs and symptoms; Nausea; Abdominal pain; Epigastric; Additional info: Epigastric pain, nausea, HX of diverticulitis TECHNIQUE: Axial computed tomography images of the abdomen and pelvis with intravenous contrast. All CT scans at this facility use one or more dose reduction techniques, viz.: automated exposure control; ma/kV adjustment per patient size (including targeted exams where dose is matched to indication; i.e. head); or iterative reconstruction technique. Coronal and sagittal reformatted images were created and reviewed. CONTRAST: 95 mL of Omnipaque administered intravenously. COMPARISON: Prior images are not available for review. Correlation is made with a report dated 09/03/16 FINDINGS: Lower thorax: The heart is mildly enlarged. There are coronary artery calcifications. There is a small hiatal hernia. ABDOMEN: Liver: There is fatty infiltration of the liver. Gallbladder and bile ducts: Gallbladder is partially distended. There is pericholecystic fluid and edema.Common duct is unremarkable. Pancreas: unremarkable Spleen: unremarkable Adrenals: There is asymmetric thickening of the adrenals. There are small calcifications in the right adrenal. Kidneys and ureters: There is a low attenuation right renal lesion too small to characterize. There is a left renal cyst. Similar findings described in the prior study. Kidneys and ureters are otherwise unremarkable. Stomach and bowel: Stomach is almost empty. Rotation is normal. There is no small bowel obstruction. Ileocecal region is unremarkable. Appendix and terminal ileum are unremarkable.There is diverticulosis. There is minimal inflammation adjacent to the proximal sigmoid with trace fluid PELVIS: Appendix: See stomach and bowel Bladder: unremarkable Reproductive: Uterus is atrophic. ABDOMEN and PELVIS: Intraperitoneal space: There is no free air Bones/joints: Bony structures are osteopenic there degenerative changes. Soft tissues: There is incompletely imaged partially calcified nodule in the left chest wall. Vasculature: There are multiple phleboliths. There are vascular calcifications. Lymph nodes: unremarkable IMPRESSION: Distended gallbladder with pericholecystic fluid and edema suggest cholecystitis; no acute solid visceral abnormality; diverticulosis with possible mild/early sigmoid diverticulitis Time: [address] Jadiel Abdi who admitted the patient. Time: [address] Miguel Sarkar, for surgical consult as requested by Dr. Jadiel Abdi. Time: 2104 Spoke to surgical instrument technician, Dr. Stout. Scribe Attestation: Documented by Rossi Tavares, acting as a scribe for Zenon Cohen MD Provider Scribe Attestation: All medical record entries made by the Scribe were at my direction and personally dictated by me. I have reviewed the chart and agree that the record accurately reflects my personal performance of the history, physical exam, medical decision making, and the department course for this patient. I have also personally directed, reviewed, and agree with the discharge instructions and disposition. Disposition - Clinical Impression Clinical Impression: Epigastric pain, Elevated LFTs, Nausea - POA Present On Arrival: None - Disposition Disposition: Admitted as In-Patient Disposition Time: 20:52 Condition: STABLE
[2018-03-18 19:23] LABS: ANISOCYTOSIS SLIGHT; BANDS 2 % (0-2); BASOPHIL 1 % (0-2); EOSINOPHIL 2 % (0-7); LYMPHOCYTE 10 % (20-50); MONOCYTE 6 % (0-10); NEUTROPHIL 79 % (42-75); PLATELET ESTIMATE NORMAL (NORMAL); TOTAL CELLS COUNTED 100
[2018-03-18 19:24] LABS: LARGE PLATELETS PRESENT; TOXIC GRANULATION PRESENT
--- NOTE | 2018-03-18 20:32 | CT ---
EXAM: CT Abdomen and Pelvis With Intravenous Contrast EXAM DATE/TIME: 03/18/2018 5:02 PM CLINICAL HISTORY: 72 years old, female; Pain and signs and symptoms; Nausea; Abdominal pain; Epigastric; Additional info: Epigastric pain, nausea, HX of diverticulitis TECHNIQUE: Axial computed tomography images of the abdomen and pelvis with intravenous contrast. All CT scans at this facility use one or more dose reduction techniques, viz.: automated exposure control; ma/kV adjustment per patient size (including targeted exams where dose is matched to indication; i.e. head); or iterative reconstruction technique. Coronal and sagittal reformatted images were created and reviewed. CONTRAST: 95 mL of Omnipaque administered intravenously. COMPARISON: Prior images are not available for review. Correlation is made with a report dated 09/03/16 FINDINGS: Lower thorax: The heart is mildly enlarged. There are coronary artery calcifications. There is a small hiatal hernia. ABDOMEN: Liver: There is fatty infiltration of the liver. Gallbladder and bile ducts: Gallbladder is partially distended. There is pericholecystic fluid and edema.Common duct is unremarkable. Pancreas: unremarkable Spleen: unremarkable Adrenals: There is asymmetric thickening of the adrenals. There are small calcifications in the right adrenal. Kidneys and ureters: There is a low attenuation right renal lesion too small to characterize. There is a left renal cyst. Similar findings described in the prior study. Kidneys and ureters are otherwise unremarkable. Stomach and bowel: Stomach is almost empty. Rotation is normal. There is no small bowel obstruction. Ileocecal region is unremarkable. Appendix and terminal ileum are unremarkable.There is diverticulosis. There is minimal inflammation adjacent to the proximal sigmoid with trace fluid PELVIS: Appendix: See stomach and bowel Bladder: unremarkable Reproductive: Uterus is atrophic. ABDOMEN and PELVIS: Intraperitoneal space: There is no free air Bones/joints: Bony structures are osteopenic there degenerative changes. Soft tissues: There is incompletely imaged partially calcified nodule in the left chest wall. Vasculature: There are multiple phleboliths. There are vascular calcifications. Lymph nodes: unremarkable IMPRESSION: Distended gallbladder with pericholecystic fluid and edema suggest cholecystitis; no acute solid visceral abnormality; diverticulosis with possible mild/early sigmoid diverticulitis Additional nonemergent findings as described above.
[2018-03-18] MEDS ORDERED: Piperacillin/Tazobact 3.375 GM in Sodium Chloride 0.9% 100 ML IV STA (20:37)
[2018-03-18] MEDS ORDERED: Sodium Chloride 0.9% 1,000 ML IV STA (20:54)
[2018-03-18] MEDS ORDERED: Piperacillin/Tazobact 3.375 gm Inj IVPB ONE (21:40)
--- NOTE | 2018-03-18 22:33 | CP.PCM.CON ---
History of Present Illness - History of Present Illness History of Present Illness: General Surgery Consult: Dr. Sarkar 72F with PMHx of HTN, obesity, Lewy body dementia, presents with abdominal pain to [facility] ED. Patient reports abdominal pain began this afternoon. She describes pain began along her epigastric region. Patient state pain radiates along her upper abdomen. She denies fevers, cough, chest pain, shortness of breath. Reports chills and nausea. Patient is alert but is not oriented to person, place , time. Pa PMHx: as stated above PSurgHx: L TKR, appears to have pfannenstiel scar but pt cannot recall what kind of surgery she had Allergies: terbinafine, famciclovir Fam Hx: non contributory Review of Systems - Review of Systems Review of Systems: 12 pt ROS unremarkable except as stated in HPI Past Patient History - Infectious Disease Hx of Infectious Diseases: None - Tetanus Immunizations Tetanus Immunization: Unknown - Past Medical History & Family History Past Medical History?: Yes - Past Social History Alcohol: None Drugs: Denies - CARDIAC Hx Congestive Heart Failure: No Hx Hypercholesterolemia: No Hx Hypertension: Yes - PULMONARY Hx Asthma: Yes Hx Chronic Obstructive Pulmonary Disease (COPD): No - NEUROLOGICAL Hx Alzheimer's Disease: Yes Hx Transient Ischemic Attacks (TIA): Yes - HEENT Hx HEENT Problems: No - RENAL Hx Chronic Kidney Disease: No - ENDOCRINE/METABOLIC Hx Hypothyroidism: Yes - HEMATOLOGICAL/ONCOLOGICAL Hx Human Immunodeficiency Virus (HIV): No - INTEGUMENTARY Hx Dermatological Problems: No - MUSCULOSKELETAL/RHEUMATOLOGICAL Hx Arthritis: Yes Hx Rheumatoid Arthritis: No - GASTROINTESTINAL Hx Diverticulitis: Yes - GENITOURINARY/GYNECOLOGICAL Hx Genitourinary Disorders: No - PSYCHIATRIC Hx Psychophysiologic Disorder: No Hx Substance Use: No - SURGICAL HISTORY Hx Tonsillectomy: Yes - ANESTHESIA Hx Anesthesia: Yes Hx Anesthesia Reactions: No Meds Allergies/Adverse Reactions: Allergies Allergy/AdvReac Type Severity Reaction Status Date / Time terbinafine HCl Allergy RASH Verified 03/18/18 16:19 [From Lamisil] famciclovir [From Famvir] AdvReac SHORTNESS Verified 03/18/18 16:19 OF BREATH - Medications Medications: Current Medications Sodium Chloride (Sodium Chloride 0.9%) 1,000 mls @ 100 mls/hr IV .Q10H [facility] Stop: 03/19/18 17:04 Last Admin: 03/18/18 17:42 Dose: 100 mls/hr Sodium Chloride (Sodium Chloride 0.9%) 1,000 mls @ 75 mls/hr IV .[id number] STA Stop: 03/19/18 10:13 Last Admin: 03/18/18 21:51 Dose: 75 mls/hr Piperacillin Sod/Tazobactam (Sod 3.375 gm/ Sodium Chloride) 100 mls @ 100 mls/ hr IV Q6 [facility] PRN Reason: Protocol Physical Exam - Constitutional Appears: Non-toxic, No Acute Distress - Head Exam Head Exam: ATRAUMATIC - Eye Exam Eye Exam: EOMI, Normal appearance - ENT Exam ENT Exam: Mucous Membranes Moist - Respiratory Exam Respiratory Exam: NORMAL BREATHING PATTERN - Cardiovascular Exam Cardiovascular Exam: +S1, +S2 - GI/Abdominal Exam GI & Abdominal Exam: Soft, Tenderness. absent: Distended, Firm, Rebound, Rigid Additional comments: RUQ tenderness - Neurological Exam Neurological exam: Alert, Oriented x3 - Skin Skin Exam: Dry, Intact, Warm Results - Vital Signs Recent Vital Signs: Last Vital Signs Temp 97.7 F 03/18/18 16:19 Pulse 57 L 03/18/18 19:46 Resp 18 03/18/18 19:46 BP 154/73 H 03/18/18 19:46 Pulse Ox 98 03/18/18 21:14 - Labs Result Diagrams: 03/18/18 17:53 03/18/18 17:53 Labs: Laboratory Results - last 24 hr 03/18/18 03/18/18 03/18/18 17:27 17:53 17:53 WBC 8.6 D RBC 4.33 Hgb 13.4 Hct 40.2 MCV 92.8 D MCH 31.0 MCHC 33.5 RDW 13.4 Plt Count 245 MPV 8.8 Neut % (Auto) 81.8 H Lymph % (Auto) 9.5 L [place] % (Auto) 6.5 Eos % (Auto) 1.4 Baso % (Auto) 0.8 Neut # (Auto) 7.1 H Lymph # (Auto) 0.8 L [place] # (Auto) 0.6 Eos # (Auto) 0.1 Baso # (Auto) 0.1 Neutrophils % (Manual) 79 H Band Neutrophils % 2 Lymphocytes % (Manual) 10 L Monocytes % (Manual) 6 Eosinophils % (Manual) 2 Basophils % (Manual) 1 Toxic Granulation Present Platelet Estimate Normal Large Platelets Present Anisocytosis (manual) Slight Sodium 142 Potassium 4.3 Chloride 101 Carbon Dioxide 28 Anion Gap 17 BUN 21 H Creatinine 0.7 Est GFR ( Amer) > 60 Est GFR (Non-Af Amer) > 60 Random Glucose 108 H Lactic Acid Calcium 9.3 Total Bilirubin 0.6 AST 190 H D ALT 142 H D Alkaline Phosphatase 113 Troponin I < 0.0120 Total Protein 7.1 Albumin 3.9 Globulin 3.2 Albumin/Globulin Ratio 1.2 Lipase 353 H Urine Color Straw Urine Clarity Clear Urine pH 7.0 Ur Specific [place] 1.014 Urine Protein Negative Urine Glucose (UA) Neg Urine Ketones Negative Urine Blood Moderate Urine Nitrate Negative Urine Bilirubin Negative Urine Urobilinogen 0.2-1.0 Ur Leukocyte Esterase Neg Urine RBC (Auto) 10 H Urine Microscopic WBC 1 Ur Squamous Epith Cells < 1 03/18/18 17:53 WBC RBC Hgb Hct MCV MCH MCHC RDW Plt Count MPV Neut % (Auto) Lymph % (Auto) [place] % (Auto) Eos % (Auto) Baso % (Auto) Neut # (Auto) Lymph # (Auto) [place] # (Auto) Eos # (Auto) Baso # (Auto) Neutrophils % (Manual) Band Neutrophils % Lymphocytes % (Manual) Monocytes % (Manual) Eosinophils % (Manual) Basophils % (Manual) Toxic Granulation Platelet Estimate Large Platelets Anisocytosis (manual) Sodium Potassium Chloride Carbon Dioxide Anion Gap BUN Creatinine Est GFR ( Amer) Est GFR (Non-Af Amer) Random Glucose Lactic Acid 0.7 Calcium Total Bilirubin AST ALT Alkaline Phosphatase Troponin I Total Protein Albumin Globulin Albumin/Globulin Ratio Lipase Urine Color Urine Clarity Urine pH Ur Specific [place] Urine Protein Urine Glucose (UA) Urine Ketones Urine Blood Urine Nitrate Urine Bilirubin Urine Urobilinogen Ur Leukocyte Esterase Urine RBC (Auto) Urine Microscopic WBC Ur Squamous Epith Cells - Imaging and Cardiology CT scan - abdomen Status: Image reviewed by me, Report reviewed by me Assessment & Plan - Assessment and Plan (Free Text) Assessment: 72F with biliary colic Plan: NPO IVF ABx Analgesic prn Anti-emetic prn F/u Abd U/S Recommend neurology consult D/w Dr. Mello GARDINER PGY2
[2018-03-18] MEDS: Piperacillin/Tazobact 3.375 GM in Sodium Chloride 0.9% 100 ML IV SCH (22:36)
--- NOTE | 2018-03-19 00:45 | US ---
EXAM: US Abdomen Limited, Right Upper Quadrant EXAM DATE/TIME: 03/18/2018 9:29 PM CLINICAL HISTORY: 72 years old, female; Pain; Abdominal pain; Epigastric; Additional info: Ruq pain TECHNIQUE: Real-time ultrasound of the right upper quadrant with image documentation. COMPARISON: CT - ABD PELVIS IV CONTRAST ONLY 2018-03-18 19:11 FINDINGS: Liver: Texture of the liver is mildly heterogeneous. There is hepatopedal flow in the main portal vein. Gallbladder: The gallbladder is distended. There is dependent sludge. There are small stones There is minimal pericholecystic fluid. There is no gallbladder wall thickening. Common bile duct: Common bile duct measures approximately 6 mm in diameter. Pancreas: Pancreas is partially obscured by bowel gas. Right kidney: Right kidney is unremarkable. IMPRESSION: Distended gallbladder with mild pericholecystic fluid, small stones and sludge; fatty liver Patient was not tender over the gallbladder
[2018-03-19] MEDS: Piperacillin/Tazobact 3.375 GM in Sodium Chloride 0.9% 100 ML IV SCH ×4 (04:44→21:45)
[2018-03-19] MEDS: Sodium Chloride 0.9% 1,000 ML IV SCH ×2 (05:46→13:55)
--- NOTE | 2018-03-19 08:27 | RAD ---
HISTORY: COMPARISON: 11/15/2017. TECHNIQUE: Chest PA and lateral FINDINGS: LINES AND TUBES: None. LUNG AND PLEURA: The lungs are well inflated and clear. No pleural effusion or pneumothorax. HEART AND MEDIASTINUM: The heart is not enlarged. The hilar and mediastinal contours are within normal limits. SKELETAL STRUCTURES: The bony structures are within normal limits for the patient's age. VISUALIZED UPPER ABDOMEN: Normal. OTHER FINDINGS: None. IMPRESSION: No active pulmonary disease.
--- NOTE | 2018-03-19 08:41 | CARD ---
APPROVED REPORT EKG Measurement Heart [id number] <Conclusion> Sinus bradycardia with sinus arrhythmia Otherwise normal ECG
[2018-03-19 09:13] LABS: ALB/GLOB RATIO 1.2 (1.0-2.1); ALBUMIN 3.6 g/dL (3.5-5.0); ALT/SGPT 468 U/L (9-52); AST/SGOT 447 U/L (14-36); BLOOD UREA NITROGEN 12 mg/dl (7-17); CALCIUM 8.9 mg/dL (8.4-10.2); GFR AFRICAN-AMERICAN > 60; GFR NON-AFRICAN AMERICAN > 60
--- NOTE | 2018-03-19 09:58 | CP.PCM.PN ---
Subjective - Date & Time of Evaluation Date of Evaluation: 03/19/18 Time of Evaluation: 09:56 - Subjective Subjective: Surgery Pt seen and examined. No acute events. c/o abd discomfort. Denies vomiting, diarrhea, CP. Objective - Vital Signs/Intake and Output Vital Signs (last 24 hours): Temp Pulse Resp BP Pulse Ox 97.8 F 60 20 150/80 97 03/19/18 07:54 03/19/18 09:10 03/19/18 07:54 03/19/18 09:10 03/19/18 07:54 - Medications Medications: Current Medications Acetaminophen (Tylenol 325mg Tab) 650 mg PO Q6 PRN PRN Reason: Pain, Mild (1-3) Escitalopram Oxalate (Lexapro) 10 mg PO DAILY [facility] Last Admin: 03/19/18 09:11 Dose: 10 mg Sodium Chloride (Sodium Chloride 0.9%) 1,000 mls @ 100 mls/hr IV .Q10H [facility] Stop: 03/19/18 17:04 Last Admin: 03/19/18 05:46 Dose: Not Given Piperacillin Sod/Tazobactam (Sod 3.375 gm/ Sodium Chloride) 100 mls @ 100 mls/ hr IV Q6 [facility] PRN Reason: Protocol Last Admin: 03/19/18 09:12 Dose: 100 mls/hr Levothyroxine Sodium (Synthroid) 150 mcg PO DAILY@0630 [facility] Losartan Potassium (Cozaar) 100 mg PO DAILY [facility] Last Admin: 03/19/18 09:10 Dose: 100 mg Memantine (Namenda) 5 mg PO BID [facility] Last Admin: 03/19/18 09:11 Dose: 5 mg Morphine Sulfate (Morphine) 4 mg IVP Q4 PRN PRN Reason: Pain, moderate (4-7) - Labs Labs: 03/18/18 17:53 03/19/18 08:35 - Constitutional Appears: No Acute Distress - Head Exam Head Exam: ATRAUMATIC, NORMAL INSPECTION, NORMOCEPHALIC - Eye Exam Eye Exam: EOMI, Normal appearance, PERRL Pupil Exam: NORMAL ACCOMODATION, PERRL - ENT Exam ENT Exam: Mucous Membranes Moist, Normal Exam - Neck Exam Neck Exam: Full ROM, Normal Inspection. absent: Lymphadenopathy - Respiratory Exam Respiratory Exam: Clear to Ausculation Bilateral, NORMAL BREATHING PATTERN - Cardiovascular Exam Cardiovascular Exam: REGULAR RHYTHM, +S1, +S2. absent: Murmur - GI/Abdominal Exam GI & Abdominal Exam: Soft, Tenderness, Normal Bowel Sounds. absent: Distended, Firm, Guarding, Rigid Additional comments: Epigastric TTP - Extremities Exam Extremities Exam: Full ROM, Normal Capillary Refill, Normal Inspection. absent : Joint Swelling, Pedal Edema - Back Exam Back Exam: NORMAL INSPECTION - Neurological Exam Neurological Exam: Alert, Awake, CN II-XII Intact, Normal Gait, Oriented x3 - Psychiatric Exam Psychiatric exam: Normal Affect, Normal Mood - Skin Skin Exam: Dry, Intact, Normal Color, Warm Assessment and Plan - Assessment and Plan (Free Text) Assessment: Cholelithiasis Elevated LFT US: gallstone with pericolecystic fluids. -f/u MRCP -NPO -IVF -trend LFT -Possible OR when LFT improves DW Dr. Schaefer
--- NOTE | 2018-03-19 10:07 | CP.PCM.HP ---
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 She has a long-standing history of hypertension and had total knee replacement a year back. The patient subsequently has developed a rapidly progressive dementia. She is being taken care of by her partner who suffered an acute cerebrovascular accident and has extreme ataxic gait. Both of them are apparently being looked after by a hired medical oncologist.there appears to be significant irregularity in administration of their medications. The patient also has severe hypothyroidism and along with thyroid replacement she is on antihypertensives as well as anti-depressions and medications for dementia. following her hospitalization the patient has been nothing by mouth and on IV fluids and indicates that her abdominal pain has significantly resolved. The patient readily recognized me and is able to answer simple questions but appears quite disoriented to time and space. She could not say who brought her to the hospital or why she came to the hospital or circumstances surrounding her hospitalization. Her physical examination shows an elderly female in no distress at this point able to lie virtually flat in bed and beats comfortably at 16 breaths per minute. Her heart rate was 58 bpm regular and her blood pressure was 116/74 mmHg. Her jugular venous pressure was not elevated and there was no edema over lower extremities. The pedal pulses were well felt. There were no carotid bruits. The apex was in the fifth space the first and second heart sounds are normal a brief ejection systolic murmur was audible in the aortic area conducted to the base of the neck. Her abdomen was soft there was a vague sense of tenderness in the epigastric region. There was no guarding or rigidity. The intestinal sounds were well heard. A rectal examination was deferred. Her electrocardiogram showed sinus rhythm with a normal EKG pattern. Review of an echocardiogram done earlier this month when she was hospitalized at [facility] reveals a preserved left ventricular systolic function with a mild gradient at the aortic valve of 34 mmHg. Her lab data shows a normal WBC count though her neutrophil count is significantly elevated. Her hemoglobin and hematocrit were normal BUN/ creatinine and electrolytes were normal. AST AST and alkaline phosphatase were elevated. CT of the abdomen and ultrasound of the abdomen done yesterday corroborate the diagnosis of acute cholecystitis. Impression: acute cholecystitis in the patient with severe dementia, hypertension and hypothyroidism. The patient is NPO and is receiving intravenous fluids and appears well hydrated. She is on IV anti-biotics. I have discussed her case with the surgeon who will follow her. I have requested a TSH level since I'm not sure if her thyroid replacement was being administered regularly and if she is euthyroid. The patient appears stable from hemodynamic point of view. Present on Admission - Present on Admission Any Indicators Present on Admission: No Past Patient History - Infectious Disease Hx of Infectious Diseases: None - Tetanus Immunizations Tetanus Immunization: Unknown - Past Medical History & Family History Past Medical History?: Yes - Past Social History Alcohol: None Drugs: Denies - CARDIAC Hx Congestive Heart Failure: No Hx Hypercholesterolemia: No Hx Hypertension: Yes - PULMONARY Hx Asthma: Yes Hx Chronic Obstructive Pulmonary Disease (COPD): No - NEUROLOGICAL Hx Alzheimer's Disease: Yes Hx Transient Ischemic Attacks (TIA): Yes - HEENT Hx HEENT Problems: No - RENAL Hx Chronic Kidney Disease: No - ENDOCRINE/METABOLIC Hx Hypothyroidism: Yes - HEMATOLOGICAL/ONCOLOGICAL Hx Human Immunodeficiency Virus (HIV): No - INTEGUMENTARY Hx Dermatological Problems: No - MUSCULOSKELETAL/RHEUMATOLOGICAL Hx Arthritis: Yes Hx Rheumatoid Arthritis: No - GASTROINTESTINAL Hx Diverticulitis: Yes - GENITOURINARY/GYNECOLOGICAL Hx Genitourinary Disorders: No - PSYCHIATRIC Hx Psychophysiologic Disorder: No Hx Substance Use: No - SURGICAL HISTORY Hx Tonsillectomy: Yes - ANESTHESIA Hx Anesthesia: Yes Hx Anesthesia Reactions: No Meds Allergies/Adverse Reactions: Allergies Allergy/AdvReac Type Severity Reaction Status Date / Time terbinafine HCl Allergy RASH Verified 03/18/18 16:19 [From Lamisil] famciclovir [From Famvir] AdvReac SHORTNESS Verified 03/18/18 16:19 OF BREATH Results - Vital Signs Recent Vital Signs: Last Vital Signs Temp 97.8 F 03/19/18 07:54 Pulse 60 03/19/18 09:10 Resp 20 03/19/18 07:54 BP 150/80 03/19/18 09:10 Pulse Ox 97 03/19/18 07:54 - Labs Result Diagrams: 03/18/18 17:53 03/19/18 08:35 Labs: Laboratory Results - last 24 hr 03/18/18 03/18/18 03/18/18 17:27 17:53 17:53 WBC 8.6 D RBC 4.33 Hgb 13.4 Hct 40.2 MCV 92.8 D MCH 31.0 MCHC 33.5 RDW 13.4 Plt Count 245 MPV 8.8 Neut % (Auto) 81.8 H Lymph % (Auto) 9.[address] [place] % (Auto) 6.5 Eos % (Auto) 1.4 Baso % (Auto) 0.8 Neut # (Auto) 7.1 H Lymph # (Auto) 0.[address] [place] # (Auto) 0.6 Eos # (Auto) 0.1 Baso # (Auto) 0.1 Neutrophils % (Manual) 79 H Band Neutrophils % 2 Lymphocytes % (Manual) 10 L Monocytes % (Manual) 6 Eosinophils % (Manual) 2 Basophils % (Manual) 1 Toxic Granulation Present Platelet Estimate Normal Large Platelets Present Anisocytosis (manual) Slight Sodium 142 Potassium 4.3 Chloride 101 Carbon Dioxide 28 Anion Gap 17 BUN 21 H Creatinine 0.7 Est GFR ( Amer) > 60 Est GFR (Non-Af Amer) > 60 Random Glucose 108 H Lactic Acid Calcium 9.3 Total Bilirubin 0.6 AST 190 H D ALT 142 H D Alkaline Phosphatase 113 Troponin I < 0.0120 Total Protein 7.1 Albumin 3.9 Globulin 3.2 Albumin/Globulin Ratio 1.2 Lipase 353 H Urine Color Straw Urine Clarity Clear Urine pH 7.0 Ur Specific [place] 1.014 Urine Protein Negative Urine Glucose (UA) Neg Urine Ketones Negative Urine Blood Moderate Urine Nitrate Negative Urine Bilirubin Negative Urine Urobilinogen 0.2-1.0 Ur Leukocyte Esterase Neg Urine RBC (Auto) 10 H Urine Microscopic WBC 1 Ur Squamous Epith Cells < 1 03/18/18 03/19/18 17:53 08:35 WBC RBC Hgb Hct MCV MCH MCHC RDW Plt Count MPV Neut % (Auto) Lymph % (Auto) [place] % (Auto) Eos % (Auto) Baso % (Auto) Neut # (Auto) Lymph # (Auto) [place] # (Auto) Eos # (Auto) Baso # (Auto) Neutrophils % (Manual) Band Neutrophils % Lymphocytes % (Manual) Monocytes % (Manual) Eosinophils % (Manual) Basophils % (Manual) Toxic Granulation Platelet Estimate Large Platelets Anisocytosis (manual) Sodium 144 Potassium 4.5 Chloride 105 Carbon Dioxide 27 Anion Gap 17 BUN 12 Creatinine 0.7 Est GFR ( Amer) > 60 Est GFR (Non-Af Amer) > 60 Random Glucose 89 Lactic Acid 0.7 Calcium 8.9 Total Bilirubin 1.1 AST 447 H D ALT 468 H D Alkaline Phosphatase 140 H D Troponin I Total Protein 6.7 Albumin 3.6 Globulin 3.1 Albumin/Globulin Ratio 1.2 Lipase Urine Color Urine Clarity Urine pH Ur Specific [place] Urine Protein Urine Glucose (UA) Urine Ketones Urine Blood Urine Nitrate Urine Bilirubin Urine Urobilinogen Ur Leukocyte Esterase Urine RBC (Auto) Urine Microscopic WBC Ur Squamous Epith Cells
[2018-03-19] MEDS ORDERED: Levothyroxine 150 MCG TAB PO ONE (13:50)
[2018-03-19] MEDS: Enoxaparin 40 mg Syringe SC SCH (13:56)
[2018-03-20] MEDS: Piperacillin/Tazobact 3.375 GM in Sodium Chloride 0.9% 100 ML IV SCH ×3 (04:25→22:59)
[2018-03-20] MEDS: Levothyroxine 150 MCG TAB PO SCH ×2 (06:39→09:18)
[2018-03-20 06:56] LABS: BASO # 0.1 K/uL (0.0-0.2); BASO % 1.4 % (0.0-2.0); EOS # 0.2 K/uL (0.0-0.7); EOS % 3.3 % (0.0-4.0); HEMOGLOBIN 12.9 g/dL (12.0-16.0); LYMPH # 0.9 K/uL (1.0-4.3); LYMPH % 18.6 % (20.0-40.0); MEAN CELL VOLUME 91.6 fl (81.0-99.0); MEAN CORPUSCULAR HEMOGLOBIN 31.6 pg (27.0-31.0); MEAN CORPUSCULAR HGB CONC 34.5 g/dL (33.0-37.0); MEAN PLATELET VOLUME 8.2 fl (7.2-11.7); MONO # 0.4 K/uL (0.0-0.8); MONO % 8.5 % (0.0-10.0); NEUT # 3.2 K/uL (1.8-7.0); NEUT % 68.2 % (50.0-75.0); RBC 4.09 Mil/uL (3.80-5.20); RED CELL DISTRIBUTION WIDTH 13.4 % (11.5-14.5); WHITE BLOOD COUNT 4.8 K/uL (4.8-10.8)
[2018-03-20 07:12] LABS: INR 1.1 (0.9-1.2); PROTHROMBIN TIME 11.9 Seconds (9.8-13.1)
[2018-03-20 07:34] LABS: ALB/GLOB RATIO 1.2 (1.0-2.1); ALBUMIN 3.6 g/dL (3.5-5.0); ALT/SGPT 380 U/L (9-52); AST/SGOT 167 U/L (14-36); BLOOD UREA NITROGEN 11 mg/dl (7-17); CALCIUM 8.9 mg/dL (8.4-10.2); GFR AFRICAN-AMERICAN > 60; GFR NON-AFRICAN AMERICAN > 60
--- NOTE | 2018-03-20 08:35 | CP.PCM.PN ---
Subjective - Date & Time of Evaluation Date of Evaluation: 03/20/18 Time of Evaluation: 08:45 - Subjective Subjective: Comfortable in bed Free of any abd pain No chills or fever No leucocytosis HR 60 BPM, BP 140/ 74 mm Hg Abd soft, mild tenderness in epigastrium AST/ALT resolving TSH was elevated ( Pt back on Thyroid replacement) Spoke with Dr. Chavez Spoke with Ms Hans (Pt's life partner) She has POA She understands, pt needs cholecystectomy Objective - Vital Signs/Intake and Output Vital Signs (last 24 hours): Temp Pulse Resp BP Pulse Ox 97.7 F 59 L 20 144/71 98 03/20/18 08:14 03/20/18 08:14 03/20/18 08:14 03/20/18 08:14 03/20/18 08:14 - Medications Medications: Current Medications Acetaminophen (Tylenol 325mg Tab) 650 mg PO Q6 PRN PRN Reason: Pain, Mild (1-3) Last Admin: 03/19/18 13:54 Dose: 650 mg Enoxaparin Sodium (Lovenox) 40 mg SC DAILY [facility] PRN Reason: Protocol Last Admin: 03/19/18 13:56 Dose: 40 mg Escitalopram Oxalate (Lexapro) 10 mg PO DAILY [facility] Last Admin: 03/19/18 09:11 Dose: 10 mg Piperacillin Sod/Tazobactam (Sod 3.375 gm/ Sodium Chloride) 100 mls @ 100 mls/ hr IV Q6 [facility] PRN Reason: Protocol Last Admin: 03/20/18 04:25 Dose: 100 mls/hr Levothyroxine Sodium (Synthroid) 150 mcg PO DAILY@0630 [facility] Last Admin: 03/20/18 06:39 Dose: Not Given Losartan Potassium (Cozaar) 100 mg PO DAILY [facility] Last Admin: 03/19/18 09:10 Dose: 100 mg Memantine (Namenda) 5 mg PO BID [facility] Last Admin: 03/19/18 09:11 Dose: 5 mg Morphine Sulfate (Morphine) 4 mg IVP Q4 PRN PRN Reason: Pain, moderate (4-7) Last Admin: 03/19/18 20:26 Dose: 4 mg - Labs Labs: 03/20/18 06:30 03/20/18 06:30 PT 11.9 Seconds (9.8-13.1) 03/20/18 06:30 INR 1.1 (0.9-1.2) 03/20/18 06:30
[2018-03-20] MEDS: Enoxaparin 40 mg Syringe SC SCH (09:17)
--- NOTE | 2018-03-20 10:48 | CP.PCM.PN ---
<Rohan Vasquez - Last Filed: 03/20/18 13:18> Subjective - Date & Time of Evaluation Date of Evaluation: 03/20/18 Time of Evaluation: 10:46 - Subjective Subjective: Surgery Pt refused MRCP yesterday. LFT trending down. Objective - Vital Signs/Intake and Output Vital Signs (last 24 hours): Temp Pulse Resp BP Pulse Ox 97.7 F 59 L 20 144/71 98 03/20/18 08:14 03/20/18 09:16 03/20/18 08:14 03/20/18 09:16 03/20/18 08:14 - Medications Medications: Current Medications Acetaminophen (Tylenol 325mg Tab) 650 mg PO Q6 PRN PRN Reason: Pain, Mild (1-3) Last Admin: 03/19/18 13:54 Dose: 650 mg Enoxaparin Sodium (Lovenox) 40 mg SC DAILY [facility] PRN Reason: Protocol Last Admin: 03/20/18 09:17 Dose: 40 mg Escitalopram Oxalate (Lexapro) 10 mg PO DAILY [facility] Last Admin: 03/20/18 09:17 Dose: 10 mg Piperacillin Sod/Tazobactam (Sod 3.375 gm/ Sodium Chloride) 100 mls @ 100 mls/ hr IV Q6 [facility] PRN Reason: Protocol Last Admin: 03/20/18 09:13 Dose: 100 mls/hr Levothyroxine Sodium (Synthroid) 150 mcg PO DAILY@0630 [facility] Last Admin: 03/20/18 09:18 Dose: 150 mcg Losartan Potassium (Cozaar) 100 mg PO DAILY [facility] Last Admin: 03/20/18 09:16 Dose: 100 mg Memantine (Namenda) 5 mg PO BID [facility] Last Admin: 03/20/18 09:16 Dose: 5 mg Morphine Sulfate (Morphine) 4 mg IVP Q4 PRN PRN Reason: Pain, moderate (4-7) Last Admin: 03/19/18 20:26 Dose: 4 mg - Labs Labs: 03/20/18 06:30 03/20/18 06:30 PT 11.9 Seconds (9.8-13.1) 03/20/18 06:30 INR 1.1 (0.9-1.2) 03/20/18 06:30 - Constitutional Appears: No Acute Distress - Head Exam Head Exam: ATRAUMATIC, NORMAL INSPECTION, NORMOCEPHALIC - Eye Exam Eye Exam: EOMI, Normal appearance, PERRL Pupil Exam: NORMAL ACCOMODATION, PERRL - ENT Exam ENT Exam: Mucous Membranes Moist, Normal Exam - Neck Exam Neck Exam: Full ROM, Normal Inspection. absent: Lymphadenopathy - Respiratory Exam Respiratory Exam: Clear to Ausculation Bilateral, NORMAL BREATHING PATTERN - Cardiovascular Exam Cardiovascular Exam: REGULAR RHYTHM, +S1, +S2. absent: Murmur - GI/Abdominal Exam GI & Abdominal Exam: Soft, Normal Bowel Sounds. absent: Tenderness - Rectal Exam Rectal Exam: NORMAL INSPECTION - Exam Exam: NORMAL INSPECTION - Extremities Exam Extremities Exam: Full ROM, Normal Capillary Refill, Normal Inspection. absent : Joint Swelling, Pedal Edema - Back Exam Back Exam: NORMAL INSPECTION - Neurological Exam Neurological Exam: Alert, Awake, CN II-XII Intact, Normal Gait, Oriented x3 - Psychiatric Exam Psychiatric exam: Normal Affect, Normal Mood - Skin Skin Exam: Dry, Intact, Normal Color, Warm Assessment and Plan - Assessment and Plan (Free Text) Assessment: cholecystitis v symptomatic Cholelithiasis LFT trending down. Refused MRCP US: gallstone with pericolecystic fluids. -NPO after midnight. -IVF -trend LFT -Possible OR tomorrow. Will obtain consent from JAY. IVAN Schaefer <Armond Schaefer - Last Filed: 03/20/18 13:48> Subjective - Date & Time of Evaluation Time of Evaluation: 13:15 - Subjective Subjective: Patient was seen and examined at the bedside. Agree with resident's note above. Objective - Vital Signs/Intake and Output Vital Signs (last 24 hours): Temp Pulse Resp BP Pulse Ox 97.7 F 59 L 20 144/71 98 03/20/18 08:14 03/20/18 09:16 03/20/18 08:14 03/20/18 09:16 03/20/18 08:14 - Medications Medications: Current Medications Acetaminophen (Tylenol 325mg Tab) 650 mg PO Q6 PRN PRN Reason: Pain, Mild (1-3) Last Admin: 03/19/18 13:54 Dose: 650 mg Enoxaparin Sodium (Lovenox) 40 mg SC DAILY [facility] PRN Reason: Protocol Last Admin: 03/20/18 09:17 Dose: 40 mg Escitalopram Oxalate (Lexapro) 10 mg PO DAILY [facility] Last Admin: 03/20/18 09:17 Dose: 10 mg Piperacillin Sod/Tazobactam (Sod 3.375 gm/ Sodium Chloride) 100 mls @ 100 mls/ hr IV Q6 [facility] PRN Reason: Protocol Last Admin: 03/20/18 09:13 Dose: 100 mls/hr Levothyroxine Sodium (Synthroid) 150 mcg PO DAILY@0630 [facility] Last Admin: 03/20/18 09:18 Dose: 150 mcg Losartan Potassium (Cozaar) 100 mg PO DAILY [facility] Last Admin: 03/20/18 09:16 Dose: 100 mg Memantine (Namenda) 5 mg PO BID [facility] Last Admin: 03/20/18 09:16 Dose: 5 mg Morphine Sulfate (Morphine) 4 mg IVP Q4 PRN PRN Reason: Pain, moderate (4-7) Last Admin: 03/19/18 20:26 Dose: 4 mg - Labs Labs: 03/20/18 06:30 03/20/18 06:30 PT 11.9 Seconds (9.8-13.1) 03/20/18 06:30 INR 1.1 (0.9-1.2) 03/20/18 06:30 Assessment and Plan - Assessment and Plan (Free Text) Plan: - Plan for cholecystectomy tomorrow
[2018-03-21] MEDS: Piperacillin/Tazobact 3.375 GM in Sodium Chloride 0.9% 100 ML IV SCH ×3 (04:38→15:34)
[2018-03-21] MEDS: Levothyroxine 150 MCG TAB PO SCH (06:47)
[2018-03-21 07:44] LABS: ALB/GLOB RATIO 1.2 (1.0-2.1); ALBUMIN 3.9 g/dL (3.5-5.0); ALT/SGPT 280 U/L (9-52); AST/SGOT 75 U/L (14-36); BLOOD UREA NITROGEN 12 mg/dl (7-17); CALCIUM 9.1 mg/dL (8.4-10.2); GFR AFRICAN-AMERICAN > 60; GFR NON-AFRICAN AMERICAN > 60
[2018-03-21 07:46] LABS: BASO # 0.1 K/uL (0.0-0.2); BASO % 1.1 % (0.0-2.0); EOS # 0.1 K/uL (0.0-0.7); EOS % 1.7 % (0.0-4.0); HEMOGLOBIN 13.5 g/dL (12.0-16.0); LYMPH # 0.8 K/uL (1.0-4.3); LYMPH % 16.5 % (20.0-40.0); MEAN CELL VOLUME 91.4 fl (81.0-99.0); MEAN CORPUSCULAR HGB CONC 33.9 g/dL (33.0-37.0); MEAN PLATELET VOLUME 8.5 fl (7.2-11.7); MONO # 0.4 K/uL (0.0-0.8); MONO % 7.7 % (0.0-10.0); NEUT # 3.8 K/uL (1.8-7.0); NRBC % 0.1 % (0.0-0.0); RBC 4.34 Mil/uL (3.80-5.20); RED CELL DISTRIBUTION WIDTH 13.6 % (11.5-14.5); WHITE BLOOD COUNT 5.1 K/uL (4.8-10.8)
--- NOTE | 2018-03-21 11:24 | CP.PCM.PN ---
Subjective - Date & Time of Evaluation Date of Evaluation: 03/21/18 Time of Evaluation: 10:35 - Subjective Subjective: Resting comfortably in bed quite free of any symptoms No abd pain or tenderness Vital signs stable Normal Neutrophil count AST/ ALT continue to trend down Scheduled for cholecystectomy today Objective - Vital Signs/Intake and Output Vital Signs (last 24 hours): Temp Pulse Resp BP Pulse Ox 98.1 F 63 20 163/68 H 95 03/21/18 08:13 03/21/18 08:13 03/21/18 08:13 03/21/18 08:13 03/21/18 08:13 - Medications Medications: Current Medications Acetaminophen (Tylenol 325mg Tab) 650 mg PO Q6 PRN PRN Reason: Pain, Mild (1-3) Last Admin: 03/19/18 13:54 Dose: 650 mg Escitalopram Oxalate (Lexapro) 10 mg PO DAILY [facility] Last Admin: 03/20/18 09:17 Dose: 10 mg Piperacillin Sod/Tazobactam (Sod 3.375 gm/ Sodium Chloride) 100 mls @ 100 mls/ hr IV Q6 [facility] PRN Reason: Protocol Last Admin: 03/21/18 09:17 Dose: 100 mls/hr Levothyroxine Sodium (Synthroid) 150 mcg PO DAILY@0630 [facility] Last Admin: 03/21/18 06:47 Dose: Not Given Losartan Potassium (Cozaar) 100 mg PO DAILY [facility] Last Admin: 03/20/18 09:16 Dose: 100 mg Memantine (Namenda) 5 mg PO BID [facility] Last Admin: 03/21/18 09:15 Dose: Not Given Morphine Sulfate (Morphine) 4 mg IVP Q4 PRN PRN Reason: Pain, moderate (4-7) Last Admin: 03/19/18 20:26 Dose: 4 mg - Labs Labs: 03/21/18 05:30 03/21/18 05:30 PT 11.9 Seconds (9.8-13.1) 03/20/18 06:30 INR 1.1 (0.9-1.2) 03/20/18 06:30
[2018-03-21] MEDS ORDERED: Lidocaine 4% (Laryng-O-Jet) Kit MM ONE (13:00)
[2018-03-21] MEDS ORDERED: Midazolam 2 MG/2 ML VIAL ONE (13:00)
[2018-03-21] MEDS ORDERED: Succinylcholine 200 mg/10 ml Inj IV ONE (13:00)
[2018-03-21] MEDS ORDERED: Rocuronium 10 mg/ml (5 ml) ONE (13:01)
[2018-03-21] MEDS ORDERED: Etomidate 20 mg/10ml Inj IV ONE (13:01)
[2018-03-21] MEDS ORDERED: Neostigmine 1:1000 (1 mg/ml) Inj ONE (13:01)
[2018-03-21] MEDS ORDERED: Lidocaine 2% Inj (20ml) ONE (13:07)
[2018-03-21] MEDS ORDERED: ceFAZolin IV 2 gm in Dextrose 0 GM/0 ML BAG IVPB ONE (13:07)
[2018-03-21] MEDS ORDERED: Lactated Ringer's 1,000 ML IV ONE (13:10)
[2018-03-21] MEDS ORDERED: Atropine 0.4 mg/ml Inj (1 mL) ONE (13:38)
[2018-03-21] MEDS ORDERED: Bupivacaine HCl 0.25% PF (30 ml) Inj IJ ONE (13:55)
[2018-03-21] MEDS ORDERED: Lactated Ringer's 1,000 ML IV SCH (14:45)
--- NOTE | 2018-03-21 14:51 | PCM.SURG1 ---
Surgeon's Initial Post Op Note - Surgeon's Notes Surgeon: Dr. Schaefer Grocery Buyer: Rohan Boateng PGY2 Type of Anesthesia: General Endo Pre-Operative Diagnosis: symptomatic cholelithiasis Operative Findings: gallstone Post-Operative Diagnosis: Same Operation Performed: Laparoscopic cholecystectomy Specimen/Specimens Removed: gallbladder Estimated Blood Loss: EBL {In ML}: 30 Blood Products Given: N/A Drains Used: No Drains Post-Op Condition: Good Date of Surgery/Procedure: 03/21/18 Time of Surgery/Procedure: 14:50
[2018-03-21] MEDS: HYDROmorphone 0.5 mg/0.5 ml ISec IVP PRN (15:04)
[2018-03-21] MEDS ORDERED: HYDROmorphone 0.5 mg/0.5 ml ISec IVP ONE (15:20)
--- NOTE | 2018-03-21 16:52 | OP ---
PROCEDURE DATE: 03/21/2018 PREOPERATIVE DIAGNOSIS: Symptomatic cholelithiasis. POSTOPERATIVE DIAGNOSIS: Symptomatic cholelithiasis. PROCEDURE: Laparoscopic cholecystectomy. SURGEON: Armond Schaefer MD KNITTING MACHINE TENDER: Saw Cole MD TYPE OF ANESTHESIA: General with endotracheal intubation. IV FLUIDS: Crystalloids. ESTIMATED BLOOD LOSS: 25 mL. INTRAOPERATIVE FINDINGS: Cholelithiasis. BRIEF HISTORY: Ms. Gaitan is a 72-year-old female who came to the hospital complaining of abdominal pain and upon further investigation on ultrasound, it was found to have gallstones. All the risks and benefits of the procedure were explained to the patient's partner and with the patient's partner having a full understanding of all the risks and benefits involved, informed consent was obtained and the patient was taken to the operating room for above-stated procedure. DESCRIPTION OF PROCEDURE: The patient was brought into the operating room and placed supine on the operating room table. Bilateral Flowtron boots were applied to the patient's lower extremities. After successful induction of anesthesia and successful endotracheal intubation by the Anesthesia Team, the patient's abdomen was prepped with ChloraPrep stick and draped in a standard surgical fashion. Prior to the beginning of the procedure, a time-out was called in the room and everyone in the room were in agreement. Using Veress needle, the patient's abdomen was entered at the umbilicus and pneumoperitoneum was achieved with good opening pressures. Once this was accomplished, using an 11 blade scalpel knife, approximately 1 cm incision was made in the umbilicus in the longitudinal fashion and subsequent to that, an 11 mm trocar was introduced into the patient's abdomen. At this point in time, a 5 mm 0 degree scope was introduced into the patient's abdomen and the abdomen was inspected, then attention was turned to the subxiphoid area. Using an 11 blade scalpel knife, approximately 5 mm incision was made in transverse fashion and subsequent to that, a 5 mm trocar was introduced into the patient's abdomen. At this point in time, attention was turned to the right side of the patient's abdomen. Using an 11 blade scalpel knife, two 5 mm incisions were made in the transverse fashion on the right side, subsequent to that two 5 mm trocars were introduced into the patient's abdomen. At this point in time, gallbladder was grasped by the fundus and Kathleen's pouch, and using [place] dissector, cystic duct and cystic artery were dissected out and critical view of safety was achieved. At this point in time, cystic duct was clipped with 2 clips proximal and one distal and transected with laparoscopic scissors. Same thing was done for the cystic artery; it was clipped with 2 clips proximal and one distal and transected with laparoscopic scissors. At this point in time, the gallbladder was dissected off the gallbladder fossa using hook electrocautery. Once the gallbladder was completely freed up from the gallbladder fossa, EndoCatch bag was introduced into the patient's abdomen. The gallbladder was placed inside of the bag and the bag was closed. At this point in time, gallbladder fossa was inspected for hemostasis. Hemostasis was achieved with hook electrocautery. At this point in time, gallbladder fossa and abdominal cavity were copiously irrigated with sterile saline and the fluid was suctioned out. At this point in time, gallbladder fossa was inspected for hemostasis. Hemostasis was confirmed. At this point in time, an 11 mm trocar together with the EndoCatch bag and gallbladder were removed from the patient's abdomen and passed off to the [facility] as a specimen. Fascial layer at the umbilical port site was closed with one interrupted 0 Vicryl sutures on UR-5 needle. Subsequent to that, the patient's abdomen was fully desufflated. The rest of the trocars was removed from the patient's abdomen and the skin was closed with 4-0 Monocryl suture in a running subcuticular fashion. At the end of the procedure, incision sites were infiltrated with Marcaine anesthetic. The patient's abdomen was washed and dried, and Dermabond was applied to the side of the incision. The patient was successfully extubated by the anesthesia team, transferred to the stretcher, and taken to the recovery room in a stable condition. At the end of the procedure, all instrument counts, needles, and sponges were correct. Armond Schaefer MD
[2018-03-21 23:41] VITALS: O2SAT 95
[2018-03-22] MEDS: HYDROmorphone 0.5 mg/0.5 ml ISec IVP PRN (02:59)
[2018-03-22] MEDS: Levothyroxine 150 MCG TAB PO SCH (06:38)
[2018-03-22 06:51] LABS: BASO % 0.3 % (0.0-2.0); EOS # 0.1 K/uL (0.0-0.7); EOS % 1.1 % (0.0-4.0); HEMOGLOBIN 12.8 g/dL (12.0-16.0); LYMPH % 12.1 % (20.0-40.0); MEAN CELL VOLUME 91.6 fl (81.0-99.0); MEAN CORPUSCULAR HEMOGLOBIN 30.9 pg (27.0-31.0); MEAN CORPUSCULAR HGB CONC 33.8 g/dL (33.0-37.0); MEAN PLATELET VOLUME 8.2 fl (7.2-11.7); MONO # 0.7 K/uL (0.0-0.8); MONO % 8.3 % (0.0-10.0); NEUT # 6.2 K/uL (1.8-7.0); NEUT % 78.2 % (50.0-75.0); RBC 4.13 Mil/uL (3.80-5.20); RED CELL DISTRIBUTION WIDTH 13.6 % (11.5-14.5); WHITE BLOOD COUNT 7.9 K/uL (4.8-10.8)
[2018-03-22 06:59] LABS: ALB/GLOB RATIO 1.1 (1.0-2.1); ALBUMIN 3.3 g/dL (3.5-5.0); ALT/SGPT 218 U/L (9-52); AST/SGOT 86 U/L (14-36); BLOOD UREA NITROGEN 14 mg/dl (7-17); CALCIUM 8.4 mg/dL (8.4-10.2); GFR AFRICAN-AMERICAN > 60; GFR NON-AFRICAN AMERICAN > 60
[2018-03-22 07:56] VITALS: BP 160/75; RESP 20; TEMP 98.6
[2018-03-22 08:52] VITALS: PULSE 50
[2018-03-22] MEDS ORDERED: Enoxaparin 40 mg Syringe SC SCH (11:00)
--- NOTE | 2018-03-22 11:43 | CP.PCM.PN ---
<Rainer Stout - Last Filed: 03/22/18 11:43> Subjective - Date & Time of Evaluation Date of Evaluation: 03/22/18 Time of Evaluation: 07:20 - Subjective Subjective: Patient seen and examined this morning. No acute events over night. Patient denies any abdominal pain, n/v/d. Reports feeling better. Tolerating diet. Surgical incision sites c/d/i. Objective - Vital Signs/Intake and Output Vital Signs (last 24 hours): Temp Pulse Resp BP Pulse Ox 98.6 F 50 L 20 160/75 H 95 03/22/18 07:55 03/22/18 08:51 03/22/18 07:55 03/22/18 08:51 03/22/18 07:55 - Medications Medications: Current Medications Acetaminophen (Tylenol 325mg Tab) 650 mg PO Q6 PRN PRN Reason: Pain, Mild (1-3) Last Admin: 03/19/18 13:54 Dose: 650 mg Enoxaparin Sodium (Lovenox) 40 mg SC DAILY [facility] PRN Reason: Protocol Escitalopram Oxalate (Lexapro) 10 mg PO DAILY [facility] Last Admin: 03/22/18 08:35 Dose: 10 mg Hydromorphone HCl (Dilaudid) 0.5 mg IVP Q4 PRN PRN Reason: Pain, severe (8-10) Last Admin: 03/22/18 02:59 Dose: 0.5 mg Lactated Ringer's (Lactated Ringer's) 1,000 mls @ 100 mls/hr IV .Q10H [facility] Last Admin: 03/22/18 00:45 Dose: Not Given Levothyroxine Sodium (Synthroid) 150 mcg PO DAILY@0630 [facility] Last Admin: 03/22/18 06:38 Dose: 150 mcg Losartan Potassium (Cozaar) 100 mg PO DAILY [facility] Last Admin: 03/22/18 08:51 Dose: 100 mg Memantine (Namenda) 5 mg PO BID [facility] Last Admin: 03/22/18 08:35 Dose: 5 mg Tramadol HCl (Ultram) 50 mg PO Q4 PRN PRN Reason: Pain, moderate (4-7) - Labs Labs: 03/22/18 06:00 03/22/18 06:00 PT 11.9 Seconds (9.8-13.1) 03/20/18 06:30 INR 1.1 (0.9-1.2) 03/20/18 06:30 - Constitutional Appears: No Acute Distress - Head Exam Head Exam: NORMOCEPHALIC - Eye Exam Eye Exam: Normal appearance - ENT Exam ENT Exam: Mucous Membranes Moist - Respiratory Exam Respiratory Exam: NORMAL BREATHING PATTERN - Cardiovascular Exam Cardiovascular Exam: +S1, +S2 - GI/Abdominal Exam GI & Abdominal Exam: Soft. absent: Distended, Firm, Guarding, Rigid, Hernia, Rebound - Neurological Exam Neurological Exam: Alert, Awake - Psychiatric Exam Psychiatric exam: Normal Mood - Skin Skin Exam: Dry, Intact, Warm Assessment and Plan - Assessment and Plan (Free Text) Assessment: 72F s/p laparoscopic cholecystecomy POD 1 Plan: -Clear for d/c from surgical standpoint -C/w heart healthy diet -Encourage ambulation and incentive spirometer use - Clear for d/c from surgical standpoint -F/u with Dr. Schaefer in 2 weeks - D/w Dr. Silvano GARDINER PGY 2 <Armond Schaefer - Last Filed: 03/22/18 11:49> Subjective - Date & Time of Evaluation Time of Evaluation: 08:00 - Subjective Subjective: Patient was seen and examined at the bedside. Agree with resident's note above. Objective - Vital Signs/Intake and Output Vital Signs (last 24 hours): Temp Pulse Resp BP Pulse Ox 98.6 F 50 L 20 160/75 H 95 03/22/18 07:55 03/22/18 08:51 03/22/18 07:55 03/22/18 08:51 03/22/18 07:55 - Medications Medications: Current Medications Acetaminophen (Tylenol 325mg Tab) 650 mg PO Q6 PRN PRN Reason: Pain, Mild (1-3) Last Admin: 03/19/18 13:54 Dose: 650 mg Enoxaparin Sodium (Lovenox) 40 mg SC DAILY [facility] PRN Reason: Protocol Escitalopram Oxalate (Lexapro) 10 mg PO DAILY [facility] Last Admin: 03/22/18 08:35 Dose: 10 mg Hydromorphone HCl (Dilaudid) 0.5 mg IVP Q4 PRN PRN Reason: Pain, severe (8-10) Last Admin: 03/22/18 02:59 Dose: 0.5 mg Lactated Ringer's (Lactated Ringer's) 1,000 mls @ 100 mls/hr IV .Q10H [facility] Last Admin: 03/22/18 00:45 Dose: Not Given Levothyroxine Sodium (Synthroid) 150 mcg PO DAILY@0630 [facility] Last Admin: 03/22/18 06:38 Dose: 150 mcg Losartan Potassium (Cozaar) 100 mg PO DAILY [facility] Last Admin: 03/22/18 08:51 Dose: 100 mg Memantine (Namenda) 5 mg PO BID [facility] Last Admin: 03/22/18 08:35 Dose: 5 mg Tramadol HCl (Ultram) 50 mg PO Q4 PRN PRN Reason: Pain, moderate (4-7) - Labs Labs: 03/22/18 06:00 03/22/18 06:00 PT 11.9 Seconds (9.8-13.1) 03/20/18 06:30 INR 1.1 (0.9-1.2) 03/20/18 06:30 - GI/Abdominal Exam Additional comments: soft, NT, ND, BS+, no rebound, no guarding, incisions clean, no erythema, no drainage, dermobond in place
--- NOTE | 2018-03-22 11:44 | CP.PCM.PN ---
Subjective - Date & Time of Evaluation Date of Evaluation: 03/22/18 Time of Evaluation: 11:00 - Subjective Subjective: Saw pt with Dr. Chavez Pt had a fairly comfortable night Tolerated oral feeding well no abd pain or tenderness Labs show stableCBC and AST/ALT resolving well To go home/will see Dr. Chavez in 7-10 days. Objective - Vital Signs/Intake and Output Vital Signs (last 24 hours): Temp Pulse Resp BP Pulse Ox 98.6 F 50 L 20 160/75 H 95 03/22/18 07:55 03/22/18 08:51 03/22/18 07:55 03/22/18 08:51 03/22/18 07:55 - Medications Medications: Current Medications Acetaminophen (Tylenol 325mg Tab) 650 mg PO Q6 PRN PRN Reason: Pain, Mild (1-3) Last Admin: 03/19/18 13:54 Dose: 650 mg Enoxaparin Sodium (Lovenox) 40 mg SC DAILY [facility] PRN Reason: Protocol Escitalopram Oxalate (Lexapro) 10 mg PO DAILY [facility] Last Admin: 03/22/18 08:35 Dose: 10 mg Hydromorphone HCl (Dilaudid) 0.5 mg IVP Q4 PRN PRN Reason: Pain, severe (8-10) Last Admin: 03/22/18 02:59 Dose: 0.5 mg Lactated Ringer's (Lactated Ringer's) 1,000 mls @ 100 mls/hr IV .Q10H [facility] Last Admin: 03/22/18 00:45 Dose: Not Given Levothyroxine Sodium (Synthroid) 150 mcg PO DAILY@0630 [facility] Last Admin: 03/22/18 06:38 Dose: 150 mcg Losartan Potassium (Cozaar) 100 mg PO DAILY [facility] Last Admin: 03/22/18 08:51 Dose: 100 mg Memantine (Namenda) 5 mg PO BID [facility] Last Admin: 03/22/18 08:35 Dose: 5 mg Tramadol HCl (Ultram) 50 mg PO Q4 PRN PRN Reason: Pain, moderate (4-7) - Labs Labs: 03/22/18 06:00 03/22/18 06:00 PT 11.9 Seconds (9.8-13.1) 03/20/18 06:30 INR 1.1 (0.9-1.2) 03/20/18 06:30
== END 2018-03-22 15:55 | disposition home or self-care (01) | DRG 419 ==
LOC: H.ER 16:15 → H.ERHOLD 20:39 → H.MEDSURG1 03-19 01:05
PROVIDERS: ADMIT Internal Medicine Cardiovascular Disease; ATTEND Internal Medicine Cardiovascular Disease
PROC: 0FT44ZZ Resection of Gallbladder, Percutaneous Endoscopic Approach (ICD-10-PCS; principal; 2018-03-21 12:30)
DX: K80.20 Calculus of gallbladder without cholecystitis without obstruction (principal); G31.83 Neurocognitive disorder with Lewy bodies; F02.80 Dementia in other diseases classified elsewhere, unspecified severity, without behavioral disturbance, psychotic disturbance, mood disturbance, and anxiety; E03.9 Hypothyroidism, unspecified; Z96.652 Presence of left artificial knee joint; E66.9 Obesity, unspecified; Z68.36 Body mass index [BMI] 36.0-36.9, adult; R79.89 Other specified abnormal findings of blood chemistry; M19.90 Unspecified osteoarthritis, unspecified site; J45.909 Unspecified asthma, uncomplicated; I10 Essential (primary) hypertension

== ENCOUNTER 2018-04-12 10:56 | Emergency (ER) | payer MEDICARE, BC ==
[2018-04-12 10:56] VITALS: BMI 36.6
[2018-04-12 11:00] VITALS: O2SAT 98
[2018-04-12] MEDS ORDERED: Naproxen 500 MG TAB PO STA (11:37)
[2018-04-12] MEDS ORDERED: Naproxen 500 MG TAB PO ONE (11:43)
--- NOTE | 2018-04-12 11:57 | RAD ---
PROCEDURE: Left Knee Radiographs. HISTORY: Pain. COMPARISON: None. FINDINGS: There has been prior total left knee arthroplasty. Prosthetic components appear to be in good alignment. No periprosthetic lucency is seen to suggest component loosening or fracture. A small suprapatellar effusion is evident. IMPRESSION: Prior left total knee arthroplasty. No evidence of component loosening or fracture. Small suprapatellar effusion.
[2018-04-12 12:02] LABS: BASO # 0.1 K/uL (0.0-0.2); BASO % 1.2 % (0.0-2.0); EOS # 0.1 K/uL (0.0-0.7); EOS % 2.3 % (0.0-4.0); HEMOGLOBIN 14.3 g/dL (12.0-16.0); LYMPH # 0.9 K/uL (1.0-4.3); LYMPH % 17.6 % (20.0-40.0); MEAN CELL VOLUME 90.3 fl (81.0-99.0); MEAN CORPUSCULAR HEMOGLOBIN 31.4 pg (27.0-31.0); MEAN CORPUSCULAR HGB CONC 34.7 g/dL (33.0-37.0); MEAN PLATELET VOLUME 8.3 fl (7.2-11.7); MONO # 0.4 K/uL (0.0-0.8); NEUT # 3.8 K/uL (1.8-7.0); NEUT % 70.9 % (50.0-75.0); NRBC % 0.1 % (0.0-0.0); RBC 4.57 Mil/uL (3.80-5.20); RED CELL DISTRIBUTION WIDTH 14.2 % (11.5-14.5); WHITE BLOOD COUNT 5.4 K/uL (4.8-10.8)
[2018-04-12 12:23] LABS: BLOOD UREA NITROGEN 19 mg/dl (7-17); CALCIUM 9.6 mg/dL (8.4-10.2); GFR AFRICAN-AMERICAN > 60; GFR NON-AFRICAN AMERICAN > 60
--- NOTE | 2018-04-12 12:38 | ED PDOC ---
Lower Extremity Pain/Injury Time Seen by Provider: 04/12/18 11:17 Chief Complaint (Nursing): Lower Extremity Problem/Injury Chief Complaint (Provider): Knee Pain History Per: Patient History/Exam Limitations: other (memory impairment) Onset/Duration Of Symptoms: Hrs Additional Complaint(s): 72 year old female with a past medical history of Alzheimer's, HTN, hyperthyroidism, depression, asthma, and a TIA presents to the ED for acute on chronic left knee pain that worsens with movement. Patient noticed this morning a little swelling, thus prompting today's visit. Patient reports of a knee replacement surgery in 2016 and reports no complications since the surgery. Otherwise: (-) medications prior to arrival, (-) falls, (-) trauma. PMD: Dr. Emmanuel Abdi Past Medical History Reviewed: Historical Data, Nursing Documentation, Vital Signs Vital Signs: Last Vital Signs Temp 97 F L 04/12/18 11:00 Pulse 63 04/12/18 11:00 Resp BP 173/62 H 04/12/18 11:00 Pulse Ox 98 04/12/18 11:05 - Medical History PMH: Alzheimer's Disease, Arthritis, Asthma, Diverticulitis, HTN, Hypothyroidism , TIA - Surgical History Surgical History: Tonsillectomy Other surgeries: left knee replacement in 2016 - Family History Family History: States: Unknown Family Hx - Social History Current smoker - smoking cessation education provided: No Alcohol: None Drugs: Denies - Home Medications Home Medications: Ambulatory Orders Medication Instructions Recorded Memantine HCl [Namenda Xr] 14 mg PO DAILY 09/07/16 Acetaminophen [Tylenol 325mg tab] 650 mg PO Q6 PRN tab 11/22/17 Aspirin [Aspirin Chewable] 81 mg PO DAILY chew 11/22/17 Atorvastatin [Lipitor] 40 mg PO DAILY@2100 tab 11/22/17 Levothyroxine [Synthroid] 150 mcg PO DAILY@0630 tab 11/22/17 Losartan [Cozaar] 100 mg PO DAILY tab 11/22/17 Pantoprazole [Protonix EC Tab] 40 mg PO DAILY ect 11/22/17 Celecoxib [Celebrex] 200 mg PO DAILY 03/18/18 Escitalopram [Lexapro] 10 mg PO DAILY 03/18/18 Acetaminophen [Acetaminophen 8 650 mg PO Q8 #24 tablet.er 04/12/18 Hour] - Allergies Allergies/Adverse Reactions: Allergies Allergy/AdvReac Type Severity Reaction Status Date / Time terbinafine HCl Allergy RASH Verified 04/12/18 11:05 [From Lamisil] famciclovir [From Famvir] AdvReac SHORTNESS Verified 04/12/18 11:05 OF BREATH Review of Systems ROS Statement: Except As Marked, All Systems Reviewed And Found Negative Musculoskeletal: Positive for: Leg Pain (acute on chronic left knee pain) Physical Exam - Reviewed Nursing Documentation Reviewed: Yes Vital Signs Reviewed: Yes - Physical Exam Comments: GENERAL APPEARANCE: Patient is awake, alert, oriented x 3, in no acute distress. SKIN: Warm, dry; (-) cyanosis. NECK: Supple, FROM ENT: Mucus membranes moist. LOWER EXTREMITY: well healed vertically oriented surgical scar to anterior left knee (-) effusion (-) erythema, (-) tenderness, (-) calf tenderness (-) palpable cord (-) warmth (-) ecchymosis (+) Full ROM of lower extremity with pain on flexion of knee. Ankle and foot: (-) injury. (+) distal pulses. CHEST AND RESPIRATORY: (-) rales, (-) rhonchi, (-) wheezes; breath sounds equal bilaterally. Respirations even and nonlabored, speaking in full sentences. HEART AND CARDIOVASCULAR: (-) irregularity; (-) murmur, (-) gallop NEUROLOGIC: (+) distal sensation. Gait steady. - Laboratory Results Result Diagrams: 04/12/18 11:55 04/12/18 11:55 - ECG O2 Sat by Pulse Oximetry: 98 (RA) Pulse Ox Interpretation: Normal Medical Decision Making Medical Decision Making: Time: 1137 Plan: -- IV Insertion -- Naproxen 500 mg PO -- Ultram 50 mg PO -- BMP -- CBC with differential -- Re-evaluation 1235 Knee XR reviewed, radiology report follows PROCEDURE: Left Knee Radiographs. HISTORY: Pain. COMPARISON: None. FINDINGS: There has been prior total left knee arthroplasty. Prosthetic components appear to be in good alignment. No periprosthetic lucency is seen to suggest component loosening or fracture. A small suprapatellar effusion is evident. IMPRESSION: Prior left total knee arthroplasty. No evidence of component loosening or fracture. Small suprapatellar effusion. Labs reviewed, grossly unremarkable. Eliseo bandage ordered however patient refused. 1245 Repeat BP: 166/78 Repeat HR: 82 On re-evaluation, patient reports improvement of symptoms. On exam, patient remains AAOx3, in no acute distress. Lungs clear to auscultation, cardiac RRR, repeat neuro exam shows no focal findings. VSS, stable for discharge. RICE encouraged. Lab/Diagnostic results d/w the patient in great detail. Diagnosis of knee pain d /w the patient. Based on history, exam and diagnostic results, plan will be for outpatient follow up. Patient instructed to follow-up with pmd / referral provided / the clinic in 1- 2 days without fail. Advised to take medication as prescribed. Return to the emergency room at any time for any new or worsening symptoms. Patient states she fully agrees with and understands discharge instructions. States that she agrees with the plan and disposition. Verbalized and repeated discharge instructions and plan. I have given the patient opportunity to ask any additional questions. Scribe Attestation: Documented by Татьяна Mcdermott, acting as a scribe for Denise Live PA-C. Provider Scribe Attestation: All medical record entries made by the Scribe were at my direction and personally dictated by me. I have reviewed the chart and agree that the record accurately reflects my personal performance of the history, physical exam, medical decision making, and the department course for this patient. I have also personally directed, reviewed, and agree with the discharge instructions and disposition. Disposition - Clinical Impression Clinical Impression: Knee pain, acute, Knee effusion - Patient ED Disposition Is Patient to be Admitted: No Counseled Patient/Family Regarding: Studies Performed, Diagnosis, Need For Followup, Rx Given - Disposition Referrals: Genaro Bright MD [Staff Provider] - Willie Abdi MD [Staff Provider] - Disposition: Routine/Home Disposition Time: 12:50 Condition: STABLE Additional Instructions: FOLLOW UP WITH PMD/ORTHO IN 1-2 DAYS WITHOUT FAIL. RETURN TO ED WITH ANY NEW OR WORSENING SYMPTOMS. Prescriptions: Acetaminophen [Acetaminophen 8 Hour] 650 mg PO Q8 #24 tablet.er Instructions: Total Knee Replacement (DC), Muscle and Bone Pain (DC), Knee Pain (DC), Joint Pain Forms: [employer] (Citizen [place]) Print Language: YI - POA Present On Arrival: None Results - Lab Results Lab Results: 04/12/18 04/12/18 11:55 11:55 WBC 5.4 RBC 4.57 Hgb 14.3 Hct 41.2 MCV 90.3 MCH 31.4 H MCHC 34.7 RDW 14.2 Plt Count 269 MPV 8.3 Neut % (Auto) 70.9 Lymph % (Auto) 17.6 L [place] % (Auto) 8.0 Eos % (Auto) 2.3 Baso % (Auto) 1.2 Neut # (Auto) 3.8 Lymph # (Auto) 0.9 L [place] # (Auto) 0.4 Eos # (Auto) 0.1 Baso # (Auto) 0.1 Sodium 140 Potassium 4.5 Chloride 103 Carbon Dioxide 32 H Anion Gap 10 BUN 19 H Creatinine 0.8 Est GFR ( Amer) > 60 Est GFR (Non-Af Amer) > 60 Random Glucose 98 Calcium 9.6
[2018-04-12 13:03] VITALS: BP 166/78; PULSE 82; RESP 18; TEMP 98.1
== END 2018-04-12 13:00 | disposition home or self-care (01) ==
LOC: H.ER 10:56
DX: M25.462 Effusion, left knee (principal); E03.9 Hypothyroidism, unspecified; F02.80 Dementia in other diseases classified elsewhere, unspecified severity, without behavioral disturbance, psychotic disturbance, mood disturbance, and anxiety; G30.9 Alzheimer's disease, unspecified; I10 Essential (primary) hypertension; Z86.73 Personal history of transient ischemic attack (TIA), and cerebral infarction without residual deficits; Z96.652 Presence of left artificial knee joint

== ENCOUNTER 2018-05-11 13:18 | Emergency (ER) | payer MEDICARE, BC ==
[2018-05-11 13:18] VITALS: BMI 36.6
[2018-05-11 13:32] VITALS: TEMP 989
--- NOTE | 2018-05-11 13:56 | ED PDOC ---
Lower Extremity Pain/Injury Time Seen by Provider: 05/11/18 13:33 Chief Complaint (Nursing): Lower Extremity Problem/Injury History Per: Patient Onset/Duration Of Symptoms: Unknown Current Symptoms Are (Timing): Still Present Severity: Moderate Additional Complaint(s): Left knee pain chronic. No new injury. No fever. S/p left TKR. Past Medical History Vital Signs: Last Vital Signs Temp 989 F H 05/11/18 13:24 Pulse 54 L 05/11/18 13:24 Resp 96 H 05/11/18 13:24 BP 162/89 H 05/11/18 13:24 Pulse Ox 97 05/11/18 13:24 - Medical History PMH: Alzheimer's Disease, Arthritis, Asthma, Diverticulitis, HTN, Hypothyroidism , TIA Denies: CHF, COPD, HIV, Hypercholesterolemia, Chronic Kidney Disease, Rheumatoid Arthritis - Surgical History Surgical History: Tonsillectomy - Family History Family History: States: Unknown Family Hx - Immunization History Hx Tetanus Toxoid Vaccination: No Hx Influenza Vaccination: No Hx Pneumococcal Vaccination: No - Home Medications Home Medications: Ambulatory Orders Medication Instructions Recorded Memantine HCl [Namenda Xr] 14 mg PO DAILY 09/07/16 Acetaminophen [Tylenol 325mg tab] 650 mg PO Q6 PRN tab 11/22/17 Aspirin [Aspirin Chewable] 81 mg PO DAILY chew 11/22/17 Atorvastatin [Lipitor] 40 mg PO DAILY@2100 tab 11/22/17 Levothyroxine [Synthroid] 150 mcg PO DAILY@0630 tab 11/22/17 Losartan [Cozaar] 100 mg PO DAILY tab 11/22/17 Pantoprazole [Protonix EC Tab] 40 mg PO DAILY ect 11/22/17 Celecoxib [Celebrex] 200 mg PO DAILY 03/18/18 Escitalopram [Lexapro] 10 mg PO DAILY 03/18/18 Acetaminophen [Acetaminophen 8 650 mg PO Q8 #24 tablet.er 04/12/18 Hour] Naproxen [Naprosyn] 500 mg PO Q12H #20 tab 05/11/18 - Allergies Allergies/Adverse Reactions: Allergies Allergy/AdvReac Type Severity Reaction Status Date / Time terbinafine HCl Allergy RASH Verified 05/11/18 13:24 [From Lamisil] famciclovir [From Famvir] AdvReac SHORTNESS Verified 05/11/18 13:24 OF BREATH Review of Systems Constitutional: Negative for: Fever Musculoskeletal: Positive for: Other (Knee pain) Physical Exam - Physical Exam Appears: Positive for: Non-toxic, No Acute Distress Skin: Positive for: Normal Color, Warm, DRY Extremity: Positive for: Other (Left knee no swelling or tenderness. no erythema ) - ECG O2 Sat by Pulse Oximetry: 97 Disposition - Clinical Impression Clinical Impression: Knee pain - Patient ED Disposition Is Patient to be Admitted: No Counseled Patient/Family Regarding: Studies Performed, Diagnosis, Need For Followup, Rx Given - Disposition Referrals: Willie Abdi MD [Staff Provider] - Nick Begum III, MD [Staff Provider] - Disposition: Routine/Home Disposition Time: 14:32 Condition: FAIR Prescriptions: Naproxen [Naprosyn] 500 mg PO Q12H #20 tab Instructions: Chronic Knee Pain Forms: [employer] ([place]an)
--- NOTE | 2018-05-11 15:00 | RAD ---
Date of service: 05/11/2018 PROCEDURE: Left Knee Radiographs. HISTORY: Pain. COMPARISON: 04/12/2018 FINDINGS: BONES: Status post left knee arthroplasty. No osseous fracture. No evidence of prosthesis loosening. No lytic or blastic osseous lesion. JOINTS: As above JOINT EFFUSION: None. OTHER FINDINGS: None. IMPRESSION: Left knee arthroplasty.
[2018-05-11 15:50] VITALS: PULSE 60; RESP 18
[2018-05-11 15:55] VITALS: BP 158/89; O2SAT 98
== END 2018-05-11 15:58 | disposition home or self-care (01) ==
LOC: H.ER 13:18
DX: M25.562 Pain in left knee (principal); Z96.652 Presence of left artificial knee joint; E03.9 Hypothyroidism, unspecified; F02.80 Dementia in other diseases classified elsewhere, unspecified severity, without behavioral disturbance, psychotic disturbance, mood disturbance, and anxiety; G30.9 Alzheimer's disease, unspecified; I10 Essential (primary) hypertension; J45.909 Unspecified asthma, uncomplicated; Z79.82 Long term (current) use of aspirin; Z86.73 Personal history of transient ischemic attack (TIA), and cerebral infarction without residual deficits

== ENCOUNTER 2018-08-02 14:04 | Inpatient (IN) | payer MEDICARE, BC ==
[2018-08-02 14:04] VITALS: BMI 36.6
--- NOTE | 2018-08-02 15:48 | ED PDOC ---
HPI: General Adult Time Seen by Provider: 08/02/18 15:10 Chief Complaint (Nursing): Medical Clearance Chief Complaint (Provider): Medical Clearance History Per: Patient, EMS History/Exam Limitations: no limitations Onset/Duration Of Symptoms: Mins Additional Complaint(s): 72 year old female presents to the ED via EMS, with spouse who is also a patient. Patient has a caregiver 24 hours a day and 7 days a week but when social work professor went to the house to check up on her, no caregiver was present. Patient appeared agitated at home but has no complaints in the ED and is unsure as to why she is in the ED. parks and recreation worker and legal guardian are present and give verbal consent. PMD: none Past Medical History Reviewed: Historical Data, Nursing Documentation, Vital Signs Vital Signs: Last Vital Signs Temp 98.4 F 08/02/18 14:45 Pulse 70 08/02/18 14:45 Resp 18 08/02/18 14:45 BP 160/97 H 08/02/18 14:45 Pulse Ox 96 08/02/18 14:45 - Medical History PMH: Alzheimer's Disease, Arthritis, Asthma, Diverticulitis, HTN, Hypothyroidism, TIA Denies: CHF, COPD, Diabetes, Hepatitis, HIV, Hypercholesterolemia, Chronic Kidney Disease, Rheumatoid Arthritis, Seizures, Sexually Transmitted Disease - Surgical History Surgical History: Tonsillectomy - Family History Family History: States: Unknown Family Hx - Immunization History Hx Tetanus Toxoid Vaccination: No Hx Influenza Vaccination: No Hx Pneumococcal Vaccination: No - Home Medications Home Medications: Ambulatory Orders Medication Instructions Recorded Memantine HCl [Namenda Xr] 14 mg PO DAILY 09/07/16 Acetaminophen [Tylenol 325mg tab] 650 mg PO Q6 PRN tab 11/22/17 Levothyroxine [Synthroid] 150 mcg PO DAILY@0630 tab 11/22/17 Losartan [Cozaar] 100 mg PO DAILY tab 11/22/17 Celecoxib [Celebrex] 200 mg PO DAILY 03/18/18 Citalopram Hydrobromide 40 mg PO DAILY 08/02/18 [Citalopram HBr] Dicyclomine [Bentyl] 10 mg PO Q8 PRN 08/02/18 Furosemide [Lasix] 20 mg PO DAILY 08/02/18 Rivastigmine 4.6 mg/24 hr [Exelon 1 patch TD DAILY 08/02/18 4.6 mg/24 hr Patch] - Allergies Allergies/Adverse Reactions: Allergies Allergy/AdvReac Type Severity Reaction Status Date / Time terbinafine HCl Allergy RASH Verified 08/02/18 14:45 [From Lamisil] famciclovir [From Famvir] AdvReac SHORTNESS Verified 08/02/18 14:45 OF BREATH Review of Systems ROS Statement: Except As Marked, All Systems Reviewed And Found Negative Physical Exam - Reviewed Nursing Documentation Reviewed: Yes Vital Signs Reviewed: Yes - Physical Exam Appears: Positive for: Non-toxic, No Acute Distress Head Exam: Positive for: ATRAUMATIC, NORMOCEPHALIC Skin: Positive for: Normal Color, Warm, Dry Eye Exam: Positive for: Normal appearance Neck: Positive for: Normal, Painless ROM Cardiovascular/Chest: Positive for: Regular Rate, Rhythm. Negative for: Murmur Respiratory: Positive for: Normal Breath Sounds. Negative for: Wheezing, Respiratory Distress Gastrointestinal/Abdominal: Positive for: Normal Exam, Soft. Negative for: Tenderness Extremity: Positive for: Normal ROM Neurologic/Psych: Positive for: Alert, Oriented (x0). Negative for: Motor/Sensory Deficits - Laboratory Results Result Diagrams: 08/02/18 16:52 08/02/18 16:52 - ECG O2 Sat by Pulse Oximetry: 96 (RA) Pulse Ox Interpretation: Normal Medical Decision Making Medical Decision Making: Initial Impression: Medical clearance Initial Plan: Scribe Attestation: Documented by Richie Tillman acting as a scribe for Virginie Hawkins MD. Provider Scribe Attestation: All medical record entries made by the Scribe were at my direction and personally dictated by me. I have reviewed the chart and agree that the record accurately reflects my personal performance of the history, physical exam, medical decision making, and the department course for this patient. I have also personally directed, reviewed, and agree with the discharge instructions and disposition. Disposition - Clinical Impression Clinical Impression: Weakness, Dementia - Patient ED Disposition Is Patient to be Admitted: Transfer of Care - Disposition Disposition Time: 00:00 Condition: STABLE Patient Signed Over To: Anup Mac Handoff Comments: Pending Social Work consult.
--- NOTE | 2018-08-02 16:08 | RAD ---
Date of service: 08/02/2018 HISTORY: Medical clearance COMPARISON: 03/18/2018 FINDINGS: LUNGS: No active pulmonary disease. PLEURA: No significant pleural effusion identified, no pneumothorax apparent. CARDIOVASCULAR: Normal. OSSEOUS STRUCTURES: Old healed right rib fracture, approximately 7th rib. No acute fracture. VISUALIZED UPPER ABDOMEN: Normal. OTHER FINDINGS: None. IMPRESSION: No active disease.
[2018-08-02 16:57] LABS: BASO # 0.1 K/uL (0.0-0.2); EOS # 0.1 K/uL (0.0-0.7); EOS % 1.7 % (0.0-4.0); HEMOGLOBIN 13.5 g/dL (12.0-16.0); LYMPH # 0.9 K/uL (1.0-4.3); LYMPH % 14.5 % (20.0-40.0); MEAN CELL VOLUME 94.9 fl (81.0-99.0); MEAN CORPUSCULAR HEMOGLOBIN 31.9 pg (27.0-31.0); MEAN CORPUSCULAR HGB CONC 33.6 g/dL (33.0-37.0); MEAN PLATELET VOLUME 8.3 fl (7.2-11.7); MONO # 0.6 K/uL (0.0-0.8); MONO % 10.4 % (0.0-10.0); NEUT # 4.3 K/uL (1.8-7.0); NEUT % 72.4 % (50.0-75.0); RBC 4.23 Mil/uL (3.80-5.20); RED CELL DISTRIBUTION WIDTH 13.5 % (11.5-14.5); WHITE BLOOD COUNT 5.9 K/uL (4.8-10.8)
[2018-08-02 17:06] LABS: ALB/GLOB RATIO 1.1 (1.0-2.1); ALBUMIN 3.7 g/dL (3.5-5.0); ALT/SGPT 47 U/L (9-52); AST/SGOT 29 U/L (14-36); BLOOD UREA NITROGEN 19 mg/dl (7-17); GFR NON-AFRICAN AMERICAN > 60
--- NOTE | 2018-08-02 22:10 | CARD ---
APPROVED REPORT Date of service: 08/02/2018 EKG Measurement Heart [id number] <Conclusion> Normal sinus rhythm Normal ECG
--- NOTE | 2018-08-03 00:37 | ED PDOC ---
- Laboratory Results Result Diagrams: 08/02/18 16:52 08/02/18 16:52 - ECG O2 Sat by Pulse Oximetry: 98 (RA) Pulse Ox Interpretation: Normal Medical Decision Making Medical Decision Making: Time: --Patient signed out to this provider by Dr. Hawkins, on social hold, pending disposition by APS, caseworkers and state assigned surgical pathologist. Patient is medically and psychiatrically cleared. Scribe Attestation: Documented by Mandy Tillman, acting as a scribe for Anup Mac MD Provider Scribe Attestation: All medical record entries made by the Scribe were at my direction and personally dictated by me. I have reviewed the chart and agree that the record accurately reflects my personal performance of the history, physical exam, medi anat decision making, and the department course for this patient. I have also personally directed, reviewed, and agree with the discharge instructions and disposition. Disposition - Clinical Impression Clinical Impression: Weakness, Dementia - POA Present On Arrival: None - Disposition Disposition: Transfer of Care Disposition Time: 07:00 Condition: STABLE
[2018-08-03 05:59] LABS: SQUAMOUS EPITHIAL < 1 /hpf (0-5); URINE AMORPHOUS SEDIMENT RARE /ul (<OCC); URINE BACTERIA RARE (<OCC); URINE BILIRUBIN NEGATIVE (NEGATIVE); URINE CLARITY SLIGHTY-CLOUDY (Clear); URINE COLOR YELLOW (YELLOW); URINE GLUCOSE (UA) NEG (Normal); URINE LEUKOCYTE ESTERASE NEG Leu/uL (Negative); URINE PROTEIN 30 mg/dL (NEGATIVE); URINE UROBILINOGEN 0.2-1.0 mg/dL (0.2-1.0)
[2018-08-03 06:00] LABS: URINE BLOOD MODERATE (NEGATIVE)
--- NOTE | 2018-08-03 07:50 | ED PDOC ---
- Laboratory Results Result Diagrams: 08/02/18 16:52 08/02/18 16:52 - ECG O2 Sat by Pulse Oximetry: 97 (RA) Pulse Ox Interpretation: Normal Medical Decision Making Medical Decision Making: Time: 0700 -- Patient endorsed to this provider by Dr. Mac, pending disposition by APS, caseworkers and state assigned network admin. Patient is medically and psychiatrically cleared. Scribe Attestation: Documented by Татьяна Mcdermott, acting as a scribe Cullen Malagon MD. Provider Scribe Attestation: All medical record entries made by the Scribe were at my direction and personally dictated by me. I have reviewed the chart and agree that the record accurately reflects my personal performance of the history, physical exam, medical decision making, and the department course for this patient. I have also personally directed, reviewed, and agree with the discharge instructions and disposition. Disposition - Clinical Impression Clinical Impression: Weakness - POA Present On Arrival: None - Disposition Disposition: Transfer of Care Disposition Time: 15:00 Condition: FAIR Instructions: General (DC), Weakness (ED) Forms: [employer] ([place]) Patient Signed Over To: Virginie Hawkins
--- NOTE | 2018-08-03 15:41 | ED PDOC ---
- Laboratory Results Result Diagrams: 08/02/18 16:52 08/02/18 16:52 - ECG O2 Sat by Pulse Oximetry: 97 (RA) Pulse Ox Interpretation: Normal Medical Decision Making Medical Decision Making: Time: 1500 -- Patient endorsed to this provider by Dr. Malagon, pending disposition by APS, caseworkers and state assigned it solutions architect. Patient is medically and psychiatrically cleared. Scribe Attestation: Documented by Татьяна Mcdermott, acting as a scribe Jamie Hawkins MD. Provider Scribe Attestation: All medical record entries made by the Scribe were at my direction and personally dictated by me. I have reviewed the chart and agree that the record accurately reflects my personal performance of the history, physical exam, medical decision making, and the department course for this patient. I have also personally directed, reviewed, and agree with the discharge instructions and disposition. Disposition - Clinical Impression Clinical Impression: Failure to thrive in adult - POA Present On Arrival: None - Disposition Disposition: Hospitalized as Observation Patient Disposition Time: 16:25 Condition: STABLE
--- NOTE | 2018-08-03 16:51 | US ---
Date of service: 08/02/2018 HISTORY: Pain. PRIORS: Comparison is made with the previous study dated 11/18/2017 FINDINGS: 2-D, color and duplex Doppler analysis of the lower extremity venous circulation using routine protocol from the femoral veins through the popliteal veins. Venous compressibility: Normal. Flow and augmentation patterns: Normal. Visualized veins upper third of calf: Normal. Portillo cyst: None. IMPRESSION: No sonographic or Doppler evidence for DVT in left lower extremity. No significant interval change noted since the previous exam.
--- NOTE | 2018-08-04 00:52 | CP.PCM.HP ---
History of Present Illness - History of Present Illness History of Present Illness: CC: Social Hold History of Present Illness: A 72 year old female presents to the ED via EMS, with spouse who is also a patient. Patient has a caregiver 24 hours a day and 7 days a week but when long term care social worker went to the house to check up on her, no caregiver was present. Patient appeared agitated at home but has no complaints in the ED and is unsure as to why she is in the ED. Patient was unkept in feces and Urine. APS and SW working with Guardian on working toward safe discharge. Present on Admission - Present on Admission Any Indicators Present on Admission: No Review of Systems - Review of Systems All systems: reviewed and no additional remarkable complaints except Review of Systems: as per HPI Past Patient History - Infectious Disease Hx of Infectious Diseases: None - Tetanus Immunizations Tetanus Immunization: Unknown - Past Medical History & Family History Past Medical History?: Yes Past Family History: Reviewed and not pertinent - Past Social History Smoking Status: Never Smoked Alcohol: None Drugs: Denies - CARDIAC Hx Cardiac Disorders: Yes - PULMONARY Hx Respiratory Disorders: Yes - NEUROLOGICAL Hx Neurological Disorder: Yes - HEENT Hx HEENT Problems: No - RENAL Hx Chronic Kidney Disease: No - ENDOCRINE/METABOLIC Hx Endocrine Disorders: Yes - HEMATOLOGICAL/ONCOLOGICAL Hx Human Immunodeficiency Virus (HIV): No - INTEGUMENTARY Hx Dermatological Problems: No - MUSCULOSKELETAL/RHEUMATOLOGICAL Hx Arthritis: Yes Hx Rheumatoid Arthritis: No - GASTROINTESTINAL Hx Diverticulitis: Yes - GENITOURINARY/GYNECOLOGICAL Hx Sexually Transmitted Disorders: No - PSYCHIATRIC Hx Psychophysiologic Disorder: Yes - SURGICAL HISTORY Hx Tonsillectomy: Yes - ANESTHESIA Hx Anesthesia: Yes Hx Anesthesia Reactions: No Meds Allergies/Adverse Reactions: Allergies Allergy/AdvReac Type Severity Reaction Status Date / Time terbinafine HCl Allergy RASH Verified 08/02/18 14:45 [From Lamisil] famciclovir [From Famvir] AdvReac SHORTNESS Verified 08/02/18 14:45 OF BREATH Physical Exam - Constitutional Appears: No Acute Distress - Head Exam Head Exam: ATRAUMATIC, NORMAL INSPECTION, NORMOCEPHALIC - Eye Exam Eye Exam: EOMI, Normal appearance, PERRL Pupil Exam: NORMAL ACCOMODATION, PERRL - ENT Exam ENT Exam: Mucous Membranes Dry, Normal Exam - Neck Exam Neck exam: Positive for: Normal Inspection - Respiratory Exam Respiratory Exam: Clear to Auscultation Bilateral, NORMAL BREATHING PATTERN - Cardiovascular Exam Cardiovascular Exam: REGULAR RHYTHM, +S1, +S2 - GI/Abdominal Exam GI & Abdominal Exam: Normal Bowel Sounds, Soft. absent: Tenderness - Extremities Exam Extremities exam: Positive for: normal inspection - Back Exam Back exam: NORMAL INSPECTION - Neurological Exam Neurological exam: Abnormal Gait, Alert, CN II-XII Intact, Motor Sensory Deficit, Oriented x3, Reflexes Normal - Psychiatric Exam Psychiatric exam: Normal Affect, Normal Mood - Skin Skin Exam: Dry, Intact, Normal Color, Warm Results - Vital Signs Recent Vital Signs: Last Vital Signs Temp 97.7 F 08/04/18 00:00 Pulse 58 L 08/04/18 00:00 Resp 19 08/04/18 00:00 BP 171/82 H 08/04/18 00:00 Pulse Ox 98 08/04/18 00:00 - Labs Result Diagrams: 08/02/18 16:52 08/02/18 16:52 Labs: Laboratory Results - last 24 hr 08/03/18 08/03/18 05:30 17:05 POC Glucose (mg/dL) 103 Urine Color Yellow Urine Clarity Slighty-cloudy Urine pH 7.0 Ur Specific [place] 1.026 Urine Protein 30 Urine Glucose (UA) Neg Urine Ketones Negative Urine Blood Moderate Urine Nitrate Negative Urine Bilirubin Negative Urine Urobilinogen 0.2-1.0 Ur Leukocyte Esterase Neg Urine RBC (Auto) 16 H Urine Microscopic WBC 1 Ur Squamous Epith Cells < 1 Amorphous Sediment Rare H Urine Bacteria Rare - Imaging and Cardiology Chest x-ray Status: Report reviewed by me Additional comment: Date of service: 08/02/2018 HISTORY: Medical clearance COMPARISON: 03/18/2018 FINDINGS: LUNGS: No active pulmonary disease. PLEURA: No significant pleural effusion identified, no pneumothorax apparent. CARDIOVASCULAR: Normal. OSSEOUS STRUCTURES: Old healed right rib fracture, approximately 7th rib. No acute fracture. VISUALIZED UPPER ABDOMEN: Normal. OTHER FINDINGS: None. IMPRESSION: No active disease. Assessment & Plan (1) Delirium Status: Acute Priority: Low (2) HTN (hypertension) Status: Chronic Priority: Low (3) Hypothyroidism Status: Chronic Priority: Medium (4) Dementia Status: Chronic Priority: Low - Assessment and Plan (Free Text) Plan: Continue Home Medications 1 to 1 for safety Guardian, SW, and APS on Board U/S Venous Doppler
[2018-08-04] MEDS: Levothyroxine 150 MCG TAB PO SCH (07:53)
[2018-08-04] MEDS: Enoxaparin 40 mg Syringe SC SCH (08:35)
--- NOTE | 2018-08-04 23:46 | CP.PCM.PN ---
Subjective - Date & Time of Evaluation Date of Evaluation: 08/04/18 Time of Evaluation: 14:30 Objective - Vital Signs/Intake and Output Vital Signs (last 24 hours): Temp Pulse Resp BP Pulse Ox 97.7 F 55 L 18 148/77 96 08/04/18 16:20 08/04/18 16:20 08/04/18 16:20 08/04/18 16:20 08/04/18 16:20 - Medications Medications: Current Medications Acetaminophen (Tylenol 325mg Tab) 650 mg PO Q6 PRN PRN Reason: Pain, Mild (1-3) Last Admin: 08/03/18 23:32 Dose: 650 mg Celecoxib (Celebrex) 200 mg PO DAILY [facility] Last Admin: 08/04/18 08:32 Dose: 200 mg Citalopram Hydrobromide (Celexa) 40 mg PO DAILY [facility] Last Admin: 08/04/18 08:32 Dose: 40 mg Dicyclomine HCl (Bentyl) 10 mg PO Q8 PRN PRN Reason: abdominal cramp/pain Enoxaparin Sodium (Lovenox) 40 mg SC DAILY [facility]; Protocol Last Admin: 08/04/18 08:35 Dose: 40 mg Furosemide (Lasix) 20 mg PO DAILY [facility] Last Admin: 08/04/18 08:34 Dose: 20 mg Levothyroxine Sodium (Synthroid) 150 mcg PO DAILY@0630 [facility] Last Admin: 08/04/18 07:53 Dose: 150 mcg Losartan Potassium (Cozaar) 100 mg PO DAILY [facility] Last Admin: 08/04/18 08:33 Dose: 100 mg Memantine (Namenda) 5 mg PO BID [facility] Last Admin: 08/04/18 16:28 Dose: 5 mg Rivastigmine (Exelon 4.6 Mg/24 Hr Patch) 1 patch TD DAILY [facility] Last Admin: 08/04/18 08:34 Dose: 1 patch - Labs Labs: 08/02/18 16:52 08/02/18 16:52 Assessment and Plan (1) Delirium Status: Acute (2) HTN (hypertension) Status: Chronic (3) Hypothyroidism Status: Chronic (4) Dementia Status: Chronic
[2018-08-05] MEDS: Levothyroxine 150 MCG TAB PO SCH (06:31)
[2018-08-05] MEDS: Enoxaparin 40 mg Syringe SC SCH (10:11)
[2018-08-06] MEDS: Levothyroxine 150 MCG TAB PO SCH (06:09)
[2018-08-06] MEDS: Enoxaparin 40 mg Syringe SC SCH (08:23)
--- NOTE | 2018-08-06 12:08 | CP.PCM.PN ---
Subjective - Date & Time of Evaluation Date of Evaluation: 08/05/18 Time of Evaluation: 16:15 Objective - Vital Signs/Intake and Output Vital Signs (last 24 hours): Temp Pulse Resp BP Pulse Ox 97.5 F L 51 L 20 150/82 96 08/06/18 08:38 08/06/18 08:38 08/06/18 08:38 08/06/18 08:38 08/06/18 08:38 - Medications Medications: Current Medications Acetaminophen (Tylenol 325mg Tab) 650 mg PO Q6 PRN PRN Reason: Pain, Mild (1-3) Last Admin: 08/03/18 23:32 Dose: 650 mg Celecoxib (Celebrex) 200 mg PO DAILY [facility] Last Admin: 08/06/18 08:24 Dose: 200 mg Citalopram Hydrobromide (Celexa) 40 mg PO DAILY [facility] Last Admin: 08/06/18 08:25 Dose: 40 mg Dicyclomine HCl (Bentyl) 10 mg PO Q8 PRN PRN Reason: abdominal cramp/pain Last Admin: 08/06/18 08:24 Dose: 10 mg Enoxaparin Sodium (Lovenox) 40 mg SC DAILY [facility]; Protocol Last Admin: 08/06/18 08:23 Dose: 40 mg Furosemide (Lasix) 20 mg PO DAILY [facility] Last Admin: 08/06/18 08:25 Dose: 20 mg Levothyroxine Sodium (Synthroid) 150 mcg PO DAILY@0630 [facility] Last Admin: 08/06/18 06:09 Dose: 150 mcg Losartan Potassium (Cozaar) 100 mg PO DAILY [facility] Last Admin: 08/06/18 08:24 Dose: Not Given Memantine (Namenda) 5 mg PO BID [facility] Last Admin: 08/06/18 08:23 Dose: 5 mg Rivastigmine (Exelon 4.6 Mg/24 Hr Patch) 1 patch TD DAILY [facility] Last Admin: 08/06/18 08:23 Dose: 1 patch - Labs Labs: 08/02/18 16:52 08/02/18 16:52 Assessment and Plan (1) Delirium Status: Acute (2) HTN (hypertension) Status: Chronic (3) Hypothyroidism Status: Chronic (4) Dementia Status: Chronic
[2018-08-07] MEDS: Levothyroxine 150 MCG TAB PO SCH (06:37)
[2018-08-07] MEDS: Enoxaparin 40 mg Syringe SC SCH (09:58)
--- NOTE | 2018-08-08 00:13 | CP.PCM.PN ---
Subjective - Date & Time of Evaluation Date of Evaluation: 08/06/18 Time of Evaluation: 17:25 Objective - Vital Signs/Intake and Output Vital Signs (last 24 hours): Temp Pulse Resp BP Pulse Ox 97.7 F 69 20 118/67 93 L 08/07/18 16:41 08/07/18 16:41 08/07/18 16:41 08/07/18 16:41 08/07/18 16:41 - Medications Medications: Current Medications Acetaminophen (Tylenol 325mg Tab) 650 mg PO Q6 PRN PRN Reason: Pain, Mild (1-3) Last Admin: 08/03/18 23:32 Dose: 650 mg Celecoxib (Celebrex) 200 mg PO DAILY [facility] Last Admin: 08/07/18 09:48 Dose: 200 mg Citalopram Hydrobromide (Celexa) 40 mg PO DAILY [facility] Last Admin: 08/07/18 09:48 Dose: 40 mg Dicyclomine HCl (Bentyl) 10 mg PO Q8 PRN PRN Reason: abdominal cramp/pain Last Admin: 08/07/18 09:48 Dose: 10 mg Enoxaparin Sodium (Lovenox) 40 mg SC DAILY [facility]; Protocol Last Admin: 08/07/18 09:58 Dose: 40 mg Furosemide (Lasix) 20 mg PO DAILY [facility] Last Admin: 08/07/18 09:50 Dose: 20 mg Levothyroxine Sodium (Synthroid) 150 mcg PO DAILY@0630 [facility] Last Admin: 08/07/18 06:37 Dose: 150 mcg Losartan Potassium (Cozaar) 100 mg PO DAILY [facility] Last Admin: 08/07/18 09:58 Dose: 100 mg Memantine (Namenda) 5 mg PO BID [facility] Last Admin: 08/07/18 17:02 Dose: 5 mg Rivastigmine (Exelon 4.6 Mg/24 Hr Patch) 1 patch TD DAILY [facility] Last Admin: 08/07/18 09:50 Dose: 1 patch - Labs Labs: 08/02/18 16:52 08/02/18 16:52 Assessment and Plan (1) Delirium Status: Acute (2) HTN (hypertension) Status: Chronic (3) Hypothyroidism Status: Chronic (4) Dementia Status: Chronic
--- NOTE | 2018-08-08 00:14 | CP.PCM.PN ---
Subjective - Date & Time of Evaluation Date of Evaluation: 08/07/18 Time of Evaluation: 14:35 Objective - Vital Signs/Intake and Output Vital Signs (last 24 hours): Temp Pulse Resp BP Pulse Ox 97.7 F 69 20 118/67 93 L 08/07/18 16:41 08/07/18 16:41 08/07/18 16:41 08/07/18 16:41 08/07/18 16:41 - Medications Medications: Current Medications Acetaminophen (Tylenol 325mg Tab) 650 mg PO Q6 PRN PRN Reason: Pain, Mild (1-3) Last Admin: 08/03/18 23:32 Dose: 650 mg Celecoxib (Celebrex) 200 mg PO DAILY [facility] Last Admin: 08/07/18 09:48 Dose: 200 mg Citalopram Hydrobromide (Celexa) 40 mg PO DAILY [facility] Last Admin: 08/07/18 09:48 Dose: 40 mg Dicyclomine HCl (Bentyl) 10 mg PO Q8 PRN PRN Reason: abdominal cramp/pain Last Admin: 08/07/18 09:48 Dose: 10 mg Enoxaparin Sodium (Lovenox) 40 mg SC DAILY [facility]; Protocol Last Admin: 08/07/18 09:58 Dose: 40 mg Furosemide (Lasix) 20 mg PO DAILY [facility] Last Admin: 08/07/18 09:50 Dose: 20 mg Levothyroxine Sodium (Synthroid) 150 mcg PO DAILY@0630 [facility] Last Admin: 08/07/18 06:37 Dose: 150 mcg Losartan Potassium (Cozaar) 100 mg PO DAILY [facility] Last Admin: 08/07/18 09:58 Dose: 100 mg Memantine (Namenda) 5 mg PO BID [facility] Last Admin: 08/07/18 17:02 Dose: 5 mg Rivastigmine (Exelon 4.6 Mg/24 Hr Patch) 1 patch TD DAILY [facility] Last Admin: 08/07/18 09:50 Dose: 1 patch - Labs Labs: 08/02/18 16:52 08/02/18 16:52 Assessment and Plan (1) Delirium Status: Acute (2) HTN (hypertension) Status: Chronic (3) Hypothyroidism Status: Chronic (4) Dementia Status: Chronic
[2018-08-08] MEDS: Levothyroxine 150 MCG TAB PO SCH (06:06)
[2018-08-08] MEDS: Enoxaparin 40 mg Syringe SC SCH (10:44)
--- NOTE | 2018-08-08 14:36 | PQF ---
PROVIDER RESPONSE TEXT: Morbid Obesity REVIEWER QUERY TEXT: Documentation Clarification 2 (two) queries as follows: 1. Your help is requested in clarifying the following clinical documentation, if you can please furth er specify in the medical record if you are in agreement with the BMI:51.1: if yes please document th e BMI in your next progress note 2. Is there an associated dx. to go along with the BMI: i.e. Morbid Obesity etc. OR: Unable to determine OR: Other explanation of clinical finding RD consult: BMI:51.2 Commnet: Question accuracy of recorded weight: (recorded Wt. from prior admisisi on:200 lbs.); Will monitor PO intake, weight status, all pertinent labs, and skin. Heart Healthy Diet The patient's Clinical Indicators include: xx Query created by: Lucy Matthews on 08/07/2018 10:15 AM Electronically signed by: Aileen Cantor MD 08/08/2018 2:32 PM
--- NOTE | 2018-08-08 14:36 | PQF ---
PROVIDER RESPONSE TEXT: Dementia, Unknown Type REVIEWER QUERY TEXT: Dementia Type and Associated Features 2 (two) queries as follows: Dementia is documented in the Medical Record. Please specify any associated features and the type if known Such as: -- Senile -- Alzheimer?s -- Vascular -- Frontal -- Frontotemporal -- Lewy body -- Other, please specify Please also specify any behavioral disturbances Such as: -- Aggressive -- Violent -- Combative behavior -- Other, please specify ER MD: duncan. includes: Alzheimer's Disease H and P: 72 year old female presents to the ED via EMS, with spouse who is also a patient. Patient gonzales s a caregiver 24 hours a day and 7 days a week but when social worker psychiatric went to the house to check up on he r, no caregiver was present. Patient appeared agitated at home but has no complaints in the ED and is unsure as to why she is in the ED. APS and SW on board working toward safe discharge (1) Delirium Status: Acute (2) HTN (hypertension) Status: Chronic (3) Hypothyroidism Status: Chronic Priority: Medium (4) Dementia Status: Chronic The patient's Clinical Indicators include: xx Query created by: Lucy Matthews on 08/07/2018 10:05 AM Electronically signed by: Aileen Cantor MD 08/08/2018 2:32 PM
--- NOTE | 2018-08-08 23:40 | CP.PCM.PN ---
Subjective - Date & Time of Evaluation Date of Evaluation: 08/08/18 Time of Evaluation: 14:10 Objective - Vital Signs/Intake and Output Vital Signs (last 24 hours): Temp Pulse Resp BP Pulse Ox 97.5 F L 52 L 18 121/75 95 08/08/18 16:06 08/08/18 16:06 08/08/18 16:06 08/08/18 16:06 08/08/18 16:06 - Medications Medications: Current Medications Acetaminophen (Tylenol 325mg Tab) 650 mg PO Q6 PRN PRN Reason: Pain, Mild (1-3) Last Admin: 08/08/18 10:41 Dose: 650 mg Celecoxib (Celebrex) 200 mg PO DAILY [facility] Last Admin: 08/08/18 10:42 Dose: 200 mg Citalopram Hydrobromide (Celexa) 40 mg PO DAILY [facility] Last Admin: 08/08/18 10:42 Dose: 40 mg Dicyclomine HCl (Bentyl) 10 mg PO Q8 PRN PRN Reason: abdominal cramp/pain Last Admin: 08/07/18 09:48 Dose: 10 mg Enoxaparin Sodium (Lovenox) 40 mg SC DAILY [facility]; Protocol Last Admin: 08/08/18 10:44 Dose: 40 mg Furosemide (Lasix) 20 mg PO DAILY [facility] Last Admin: 08/08/18 10:43 Dose: 20 mg Levothyroxine Sodium (Synthroid) 150 mcg PO DAILY@0630 [facility] Last Admin: 08/08/18 06:06 Dose: 150 mcg Losartan Potassium (Cozaar) 100 mg PO DAILY [facility] Last Admin: 08/08/18 10:41 Dose: Not Given Memantine (Namenda) 5 mg PO BID [facility] Last Admin: 08/08/18 16:45 Dose: 5 mg Rivastigmine (Exelon 4.6 Mg/24 Hr Patch) 1 patch TD DAILY [facility] Last Admin: 08/08/18 10:42 Dose: 1 patch - Labs Labs: 08/02/18 16:52 08/02/18 16:52 Assessment and Plan (1) Delirium Status: Acute (2) HTN (hypertension) Status: Chronic (3) Hypothyroidism Status: Chronic (4) Dementia Status: Chronic
[2018-08-09] MEDS: Levothyroxine 150 MCG TAB PO SCH (06:08)
[2018-08-09] MEDS: Enoxaparin 40 mg Syringe SC SCH (09:16)
[2018-08-10] MEDS: Levothyroxine 150 MCG TAB PO SCH (06:06)
[2018-08-11] MEDS: Levothyroxine 150 MCG TAB PO SCH (07:58)
--- NOTE | 2018-08-11 12:18 | CP.PCM.PN ---
Subjective - Date & Time of Evaluation Date of Evaluation: 08/09/18 Time of Evaluation: 19:10 Objective - Vital Signs/Intake and Output Vital Signs (last 24 hours): Temp Pulse Resp BP Pulse Ox 98 F 52 L 20 152/71 H 94 L 08/11/18 08:25 08/11/18 08:25 08/11/18 08:25 08/11/18 09:14 08/11/18 08:25 - Medications Medications: Current Medications Acetaminophen (Tylenol 325mg Tab) 650 mg PO Q6 PRN PRN Reason: Pain, Mild (1-3) Last Admin: 08/09/18 13:26 Dose: 650 mg Celecoxib (Celebrex) 200 mg PO DAILY [facility] Last Admin: 08/11/18 09:15 Dose: 200 mg Citalopram Hydrobromide (Celexa) 40 mg PO DAILY [facility] Last Admin: 08/11/18 09:14 Dose: 40 mg Dicyclomine HCl (Bentyl) 10 mg PO Q8 PRN PRN Reason: abdominal cramp/pain Last Admin: 08/07/18 09:48 Dose: 10 mg Furosemide (Lasix) 20 mg PO DAILY [facility] Last Admin: 08/11/18 09:14 Dose: 20 mg Levothyroxine Sodium (Synthroid) 150 mcg PO DAILY@0630 [facility] Last Admin: 08/11/18 07:58 Dose: 150 mcg Losartan Potassium (Cozaar) 100 mg PO DAILY [facility] Last Admin: 08/11/18 09:14 Dose: 100 mg Memantine (Namenda) 5 mg PO BID [facility] Last Admin: 08/11/18 09:14 Dose: 5 mg Rivastigmine (Exelon 4.6 Mg/24 Hr Patch) 1 patch TD DAILY [facility] Last Admin: 08/11/18 09:15 Dose: 1 patch - Labs Labs: 08/02/18 16:52 08/02/18 16:52 Assessment and Plan (1) Delirium Status: Acute (2) HTN (hypertension) Status: Chronic (3) Hypothyroidism Status: Chronic (4) Dementia Status: Chronic
--- NOTE | 2018-08-11 12:19 | CP.PCM.PN ---
Subjective - Date & Time of Evaluation Date of Evaluation: 08/10/18 Time of Evaluation: 20:05 Objective - Vital Signs/Intake and Output Vital Signs (last 24 hours): Temp Pulse Resp BP Pulse Ox 98 F 52 L 20 152/71 H 94 L 08/11/18 08:25 08/11/18 08:25 08/11/18 08:25 08/11/18 09:14 08/11/18 08:25 - Medications Medications: Current Medications Acetaminophen (Tylenol 325mg Tab) 650 mg PO Q6 PRN PRN Reason: Pain, Mild (1-3) Last Admin: 08/09/18 13:26 Dose: 650 mg Celecoxib (Celebrex) 200 mg PO DAILY [facility] Last Admin: 08/11/18 09:15 Dose: 200 mg Citalopram Hydrobromide (Celexa) 40 mg PO DAILY [facility] Last Admin: 08/11/18 09:14 Dose: 40 mg Dicyclomine HCl (Bentyl) 10 mg PO Q8 PRN PRN Reason: abdominal cramp/pain Last Admin: 08/07/18 09:48 Dose: 10 mg Furosemide (Lasix) 20 mg PO DAILY [facility] Last Admin: 08/11/18 09:14 Dose: 20 mg Levothyroxine Sodium (Synthroid) 150 mcg PO DAILY@0630 [facility] Last Admin: 08/11/18 07:58 Dose: 150 mcg Losartan Potassium (Cozaar) 100 mg PO DAILY [facility] Last Admin: 08/11/18 09:14 Dose: 100 mg Memantine (Namenda) 5 mg PO BID [facility] Last Admin: 08/11/18 09:14 Dose: 5 mg Rivastigmine (Exelon 4.6 Mg/24 Hr Patch) 1 patch TD DAILY [facility] Last Admin: 08/11/18 09:15 Dose: 1 patch - Labs Labs: 08/02/18 16:52 08/02/18 16:52 Assessment and Plan (1) Delirium Status: Acute (2) HTN (hypertension) Status: Chronic (3) Hypothyroidism Status: Chronic (4) Dementia Status: Chronic
--- NOTE | 2018-08-11 12:19 | CP.PCM.PN ---
Subjective - Date & Time of Evaluation Date of Evaluation: 08/11/18 Time of Evaluation: 12:05 Objective - Vital Signs/Intake and Output Vital Signs (last 24 hours): Temp Pulse Resp BP Pulse Ox 98 F 52 L 20 152/71 H 94 L 08/11/18 08:25 08/11/18 08:25 08/11/18 08:25 08/11/18 09:14 08/11/18 08:25 - Medications Medications: Current Medications Acetaminophen (Tylenol 325mg Tab) 650 mg PO Q6 PRN PRN Reason: Pain, Mild (1-3) Last Admin: 08/09/18 13:26 Dose: 650 mg Celecoxib (Celebrex) 200 mg PO DAILY [facility] Last Admin: 08/11/18 09:15 Dose: 200 mg Citalopram Hydrobromide (Celexa) 40 mg PO DAILY [facility] Last Admin: 08/11/18 09:14 Dose: 40 mg Dicyclomine HCl (Bentyl) 10 mg PO Q8 PRN PRN Reason: abdominal cramp/pain Last Admin: 08/07/18 09:48 Dose: 10 mg Furosemide (Lasix) 20 mg PO DAILY [facility] Last Admin: 08/11/18 09:14 Dose: 20 mg Levothyroxine Sodium (Synthroid) 150 mcg PO DAILY@0630 [facility] Last Admin: 08/11/18 07:58 Dose: 150 mcg Losartan Potassium (Cozaar) 100 mg PO DAILY [facility] Last Admin: 08/11/18 09:14 Dose: 100 mg Memantine (Namenda) 5 mg PO BID [facility] Last Admin: 08/11/18 09:14 Dose: 5 mg Rivastigmine (Exelon 4.6 Mg/24 Hr Patch) 1 patch TD DAILY [facility] Last Admin: 08/11/18 09:15 Dose: 1 patch - Labs Labs: 08/02/18 16:52 08/02/18 16:52 Assessment and Plan (1) Delirium Status: Acute (2) HTN (hypertension) Status: Chronic (3) Hypothyroidism Status: Chronic (4) Dementia Status: Chronic
[2018-08-12] MEDS: Levothyroxine 150 MCG TAB PO SCH (06:33)
[2018-08-13] MEDS: Levothyroxine 150 MCG TAB PO SCH (06:33)
--- NOTE | 2018-08-13 11:15 | CP.PCM.PN ---
Subjective - Date & Time of Evaluation Date of Evaluation: 08/12/18 Time of Evaluation: 14:00 - Subjective Subjective: New complaint. Still on 1 to 1 Watch. Her Guardian, APS and SW on board, and waiting placement. Objective - Vital Signs/Intake and Output Vital Signs (last 24 hours): Temp Pulse Resp BP Pulse Ox 97.5 F L 72 20 110/73 98 08/13/18 08:12 08/13/18 10:07 08/13/18 08:12 08/13/18 10:07 08/13/18 08:12 - Medications Medications: Current Medications Acetaminophen (Tylenol 325mg Tab) 650 mg PO Q6 PRN PRN Reason: Pain, Mild (1-3) Last Admin: 08/13/18 10:17 Dose: 650 mg Celecoxib (Celebrex) 200 mg PO DAILY [facility] Last Admin: 08/13/18 10:08 Dose: 200 mg Citalopram Hydrobromide (Celexa) 40 mg PO DAILY [facility] Last Admin: 08/13/18 10:08 Dose: 40 mg Dicyclomine HCl (Bentyl) 10 mg PO Q8 PRN PRN Reason: abdominal cramp/pain Last Admin: 08/07/18 09:48 Dose: 10 mg Furosemide (Lasix) 20 mg PO DAILY [facility] Last Admin: 08/13/18 10:07 Dose: 20 mg Levothyroxine Sodium (Synthroid) 150 mcg PO DAILY@0630 [facility] Last Admin: 08/13/18 06:33 Dose: 150 mcg Losartan Potassium (Cozaar) 100 mg PO DAILY [facility] Last Admin: 08/13/18 10:07 Dose: 100 mg Memantine (Namenda) 5 mg PO BID [facility] Last Admin: 08/13/18 10:07 Dose: 5 mg Rivastigmine (Exelon 4.6 Mg/24 Hr Patch) 1 patch TD DAILY [facility] Last Admin: 08/13/18 10:08 Dose: 1 patch - Labs Labs: 08/02/18 16:52 08/02/18 16:52 Assessment and Plan (1) Living accommodation issues Status: Acute (2) Delirium Status: Acute (3) HTN (hypertension) Status: Chronic (4) Hypothyroidism Status: Chronic (5) Dementia Status: Chronic - Assessment and Plan (Free Text) Plan: Continue Home Medication C/w 1 to 1 Watch For Placement for Safe Living Condition.
[2018-08-14] MEDS: Levothyroxine 150 MCG TAB PO SCH (06:10)
[2018-08-15] MEDS: Levothyroxine 150 MCG TAB PO SCH (06:41)
--- NOTE | 2018-08-16 04:01 | CP.PCM.PN ---
Subjective - Date & Time of Evaluation Date of Evaluation: 08/15/18 Time of Evaluation: 19:20 - Subjective Subjective: No new complaint. Still on 1 to 1 Watch. Her Guardian, APS and SW on board, and waiting placement. Objective - Vital Signs/Intake and Output Vital Signs (last 24 hours): Temp Pulse Resp BP Pulse Ox 97.3 F L 55 L 18 104/68 95 08/15/18 23:39 08/15/18 23:39 08/15/18 23:39 08/15/18 23:39 08/15/18 23:39 - Medications Medications: Current Medications Acetaminophen (Tylenol 325mg Tab) 650 mg PO Q6 PRN PRN Reason: Pain, Mild (1-3) Last Admin: 08/14/18 09:45 Dose: 650 mg Celecoxib (Celebrex) 200 mg PO DAILY [facility] Last Admin: 08/15/18 08:23 Dose: 200 mg Citalopram Hydrobromide (Celexa) 40 mg PO DAILY [facility] Last Admin: 08/15/18 08:23 Dose: 40 mg Dicyclomine HCl (Bentyl) 10 mg PO Q8 PRN PRN Reason: abdominal cramp/pain Last Admin: 08/07/18 09:48 Dose: 10 mg Furosemide (Lasix) 20 mg PO DAILY [facility] Last Admin: 08/15/18 08:25 Dose: 20 mg Levothyroxine Sodium (Synthroid) 150 mcg PO DAILY@0630 [facility] Last Admin: 08/15/18 06:41 Dose: 150 mcg Losartan Potassium (Cozaar) 100 mg PO DAILY [facility] Last Admin: 08/15/18 08:24 Dose: Not Given Memantine (Namenda) 5 mg PO BID [facility] Last Admin: 08/15/18 16:17 Dose: 5 mg Rivastigmine (Exelon 4.6 Mg/24 Hr Patch) 1 patch TD DAILY [facility] Last Admin: 08/15/18 08:24 Dose: 1 patch - Labs Labs: 08/02/18 16:52 08/02/18 16:52 Assessment and Plan (1) Living accommodation issues Status: Resolved (2) Delirium Status: Chronic (3) HTN (hypertension) Status: Chronic (4) Hypothyroidism Status: Chronic (5) Dementia Status: Chronic - Assessment and Plan (Free Text) Plan: Continue Home Medications 1 to 1 for safety Guardian, SW, and APS on Board
--- NOTE | 2018-08-16 04:04 | CP.PCM.PN ---
Subjective - Date & Time of Evaluation Date of Evaluation: 08/14/18 Time of Evaluation: 19:25 - Subjective Subjective: No new complaint. Still on 1 to 1 Watch. Her Guardian, APS and SW on board, and waiting placement. Objective - Vital Signs/Intake and Output Vital Signs (last 24 hours): Temp Pulse Resp BP Pulse Ox 97.3 F L 55 L 18 104/68 95 08/15/18 23:39 08/15/18 23:39 08/15/18 23:39 08/15/18 23:39 08/15/18 23:39 - Medications Medications: Current Medications Acetaminophen (Tylenol 325mg Tab) 650 mg PO Q6 PRN PRN Reason: Pain, Mild (1-3) Last Admin: 08/14/18 09:45 Dose: 650 mg Celecoxib (Celebrex) 200 mg PO DAILY [facility] Last Admin: 08/15/18 08:23 Dose: 200 mg Citalopram Hydrobromide (Celexa) 40 mg PO DAILY [facility] Last Admin: 08/15/18 08:23 Dose: 40 mg Dicyclomine HCl (Bentyl) 10 mg PO Q8 PRN PRN Reason: abdominal cramp/pain Last Admin: 08/07/18 09:48 Dose: 10 mg Furosemide (Lasix) 20 mg PO DAILY [facility] Last Admin: 08/15/18 08:25 Dose: 20 mg Levothyroxine Sodium (Synthroid) 150 mcg PO DAILY@0630 [facility] Last Admin: 08/15/18 06:41 Dose: 150 mcg Losartan Potassium (Cozaar) 100 mg PO DAILY [facility] Last Admin: 08/15/18 08:24 Dose: Not Given Memantine (Namenda) 5 mg PO BID [facility] Last Admin: 08/15/18 16:17 Dose: 5 mg Rivastigmine (Exelon 4.6 Mg/24 Hr Patch) 1 patch TD DAILY [facility] Last Admin: 08/15/18 08:24 Dose: 1 patch - Labs Labs: 08/02/18 16:52 08/02/18 16:52 Assessment and Plan (1) Living accommodation issues Status: Resolved (2) Delirium Status: Chronic (3) HTN (hypertension) Status: Chronic (4) Hypothyroidism Status: Chronic (5) Dementia Status: Chronic - Assessment and Plan (Free Text) Plan: Continue Home Medications 1 to 1 for safety Guardian, SW, and APS on Board
--- NOTE | 2018-08-16 04:07 | CP.PCM.PN ---
Subjective - Date & Time of Evaluation Date of Evaluation: 08/15/18 Time of Evaluation: 16:40 - Subjective Subjective: No new complaint. Still on 1 to 1 Watch. Her Guardian, APS and SW on board, and waiting placement. Objective - Vital Signs/Intake and Output Vital Signs (last 24 hours): Temp Pulse Resp BP Pulse Ox 97.3 F L 55 L 18 104/68 95 08/15/18 23:39 08/15/18 23:39 08/15/18 23:39 08/15/18 23:39 08/15/18 23:39 - Medications Medications: Current Medications Acetaminophen (Tylenol 325mg Tab) 650 mg PO Q6 PRN PRN Reason: Pain, Mild (1-3) Last Admin: 08/14/18 09:45 Dose: 650 mg Celecoxib (Celebrex) 200 mg PO DAILY [facility] Last Admin: 08/15/18 08:23 Dose: 200 mg Citalopram Hydrobromide (Celexa) 40 mg PO DAILY [facility] Last Admin: 08/15/18 08:23 Dose: 40 mg Dicyclomine HCl (Bentyl) 10 mg PO Q8 PRN PRN Reason: abdominal cramp/pain Last Admin: 08/07/18 09:48 Dose: 10 mg Furosemide (Lasix) 20 mg PO DAILY [facility] Last Admin: 08/15/18 08:25 Dose: 20 mg Levothyroxine Sodium (Synthroid) 150 mcg PO DAILY@0630 [facility] Last Admin: 08/15/18 06:41 Dose: 150 mcg Losartan Potassium (Cozaar) 100 mg PO DAILY [facility] Last Admin: 08/15/18 08:24 Dose: Not Given Memantine (Namenda) 5 mg PO BID [facility] Last Admin: 08/15/18 16:17 Dose: 5 mg Rivastigmine (Exelon 4.6 Mg/24 Hr Patch) 1 patch TD DAILY [facility] Last Admin: 08/15/18 08:24 Dose: 1 patch - Labs Labs: 08/02/18 16:52 08/02/18 16:52 Assessment and Plan (1) Living accommodation issues Status: Resolved (2) Delirium Status: Chronic (3) HTN (hypertension) Status: Chronic (4) Hypothyroidism Status: Chronic (5) Dementia Status: Chronic - Assessment and Plan (Free Text) Plan: Continue Home Medications 1 to 1 for safety Guardian, SW, and APS on Board
[2018-08-16] MEDS: Levothyroxine 150 MCG TAB PO SCH (06:24)
[2018-08-17] MEDS: Levothyroxine 150 MCG TAB PO SCH (07:05)
[2018-08-18] MEDS: Levothyroxine 150 MCG TAB PO SCH (05:40)
--- NOTE | 2018-08-18 22:44 | CP.PCM.PN ---
Subjective - Date & Time of Evaluation Date of Evaluation: 08/16/18 Time of Evaluation: 18:55 Objective - Vital Signs/Intake and Output Vital Signs (last 24 hours): Temp Pulse Resp BP Pulse Ox 97.4 F L 55 L 18 115/68 97 08/18/18 16:34 08/18/18 16:34 08/18/18 16:34 08/18/18 16:34 08/18/18 16:34 - Medications Medications: Current Medications Celecoxib (Celebrex) 200 mg PO DAILY [facility] Last Admin: 08/18/18 11:17 Dose: 200 mg Citalopram Hydrobromide (Celexa) 40 mg PO DAILY [facility] Last Admin: 08/18/18 11:17 Dose: 40 mg Furosemide (Lasix) 20 mg PO DAILY [facility] Last Admin: 08/18/18 11:18 Dose: 20 mg Levothyroxine Sodium (Synthroid) 150 mcg PO DAILY@0630 [facility] Last Admin: 08/18/18 05:40 Dose: 150 mcg Losartan Potassium (Cozaar) 100 mg PO DAILY [facility] Last Admin: 08/18/18 11:17 Dose: 100 mg Memantine (Namenda) 5 mg PO BID [facility] Last Admin: 08/18/18 17:28 Dose: 5 mg Rivastigmine (Exelon 4.6 Mg/24 Hr Patch) 1 patch TD DAILY [facility] Last Admin: 08/18/18 11:18 Dose: 1 patch - Labs Labs: 08/02/18 16:52 08/02/18 16:52 Assessment and Plan (1) Living accommodation issues Status: Resolved (2) Delirium Status: Chronic (3) HTN (hypertension) Status: Chronic (4) Hypothyroidism Status: Chronic (5) Dementia Status: Chronic
--- NOTE | 2018-08-18 22:46 | CP.PCM.PN ---
Subjective - Date & Time of Evaluation Date of Evaluation: 08/17/18 Time of Evaluation: 19:55 Objective - Vital Signs/Intake and Output Vital Signs (last 24 hours): Temp Pulse Resp BP Pulse Ox 97.4 F L 55 L 18 115/68 97 08/18/18 16:34 08/18/18 16:34 08/18/18 16:34 08/18/18 16:34 08/18/18 16:34 - Medications Medications: Current Medications Celecoxib (Celebrex) 200 mg PO DAILY [facility] Last Admin: 08/18/18 11:17 Dose: 200 mg Citalopram Hydrobromide (Celexa) 40 mg PO DAILY [facility] Last Admin: 08/18/18 11:17 Dose: 40 mg Furosemide (Lasix) 20 mg PO DAILY [facility] Last Admin: 08/18/18 11:18 Dose: 20 mg Levothyroxine Sodium (Synthroid) 150 mcg PO DAILY@0630 [facility] Last Admin: 08/18/18 05:40 Dose: 150 mcg Losartan Potassium (Cozaar) 100 mg PO DAILY [facility] Last Admin: 08/18/18 11:17 Dose: 100 mg Memantine (Namenda) 5 mg PO BID [facility] Last Admin: 08/18/18 17:28 Dose: 5 mg Rivastigmine (Exelon 4.6 Mg/24 Hr Patch) 1 patch TD DAILY [facility] Last Admin: 08/18/18 11:18 Dose: 1 patch - Labs Labs: 08/02/18 16:52 08/02/18 16:52 Assessment and Plan (1) Living accommodation issues Status: Resolved (2) Delirium Status: Chronic (3) HTN (hypertension) Status: Chronic (4) Hypothyroidism Status: Chronic (5) Dementia Status: Chronic
--- NOTE | 2018-08-18 22:46 | CP.PCM.PN ---
Subjective - Date & Time of Evaluation Date of Evaluation: 08/18/18 Time of Evaluation: 16:50 Objective - Vital Signs/Intake and Output Vital Signs (last 24 hours): Temp Pulse Resp BP Pulse Ox 97.4 F L 55 L 18 115/68 97 08/18/18 16:34 08/18/18 16:34 08/18/18 16:34 08/18/18 16:34 08/18/18 16:34 - Medications Medications: Current Medications Celecoxib (Celebrex) 200 mg PO DAILY [facility] Last Admin: 08/18/18 11:17 Dose: 200 mg Citalopram Hydrobromide (Celexa) 40 mg PO DAILY [facility] Last Admin: 08/18/18 11:17 Dose: 40 mg Furosemide (Lasix) 20 mg PO DAILY [facility] Last Admin: 08/18/18 11:18 Dose: 20 mg Levothyroxine Sodium (Synthroid) 150 mcg PO DAILY@0630 [facility] Last Admin: 08/18/18 05:40 Dose: 150 mcg Losartan Potassium (Cozaar) 100 mg PO DAILY [facility] Last Admin: 08/18/18 11:17 Dose: 100 mg Memantine (Namenda) 5 mg PO BID [facility] Last Admin: 08/18/18 17:28 Dose: 5 mg Rivastigmine (Exelon 4.6 Mg/24 Hr Patch) 1 patch TD DAILY [facility] Last Admin: 08/18/18 11:18 Dose: 1 patch - Labs Labs: 08/02/18 16:52 08/02/18 16:52 Assessment and Plan (1) Living accommodation issues Status: Resolved (2) Delirium Status: Chronic (3) HTN (hypertension) Status: Chronic (4) Hypothyroidism Status: Chronic (5) Dementia Status: Chronic - Assessment and Plan (Free Text) Plan: Guardian, SW, and APS on Board , and pending Placement.
[2018-08-19] MEDS: Levothyroxine 150 MCG TAB PO SCH (06:05)
--- NOTE | 2018-08-19 23:06 | CP.PCM.PN ---
Subjective - Date & Time of Evaluation Date of Evaluation: 08/19/18 Time of Evaluation: 07:55 - Subjective Subjective: No new complaint. Still on 1 to 1 Watch. Her Guardian, APS and SW on board, and waiting for placement. Objective - Vital Signs/Intake and Output Vital Signs (last 24 hours): Temp Pulse Resp BP Pulse Ox 97.4 F L 53 L 18 123/81 96 08/19/18 16:54 08/19/18 16:54 08/19/18 16:54 08/19/18 16:54 08/19/18 16:54 - Medications Medications: Current Medications Acetaminophen (Tylenol 325mg Tab) 650 mg PO Q6 PRN PRN Reason: Pain, Mild (1-3) Celecoxib (Celebrex) [address] [facility] Last Admin: 08/19/18 21:38 Dose: 200 mg Citalopram Hydrobromide (Celexa) [address] [facility] Dicyclomine HCl (Bentyl) 10 mg PO Q8 PRN PRN Reason: abdominal cramp Furosemide (Lasix) [address] [facility] Levothyroxine Sodium (Synthroid) 150 mcg PO DAILY@0630 [facility] Losartan Potassium (Cozaar) [address] [facility] Memantine (Namenda) [address] [facility] Last Admin: 08/19/18 17:11 Dose: 5 mg Rivastigmine (Exelon 4.6 Mg/24 Hr Patch) [address] [facility] - Labs Labs: 08/02/18 16:52 08/02/18 16:52 Assessment and Plan (1) Living accommodation issues Status: Resolved (2) Delirium Status: Chronic (3) HTN (hypertension) Status: Chronic (4) Hypothyroidism Status: Chronic (5) Dementia Status: Chronic - Assessment and Plan (Free Text) Plan: Guardian, SW, and APS on Board , and pending Placement.
[2018-08-20] MEDS: Levothyroxine 150 MCG TAB PO SCH (09:05)
[2018-08-21] MEDS: Levothyroxine 150 MCG TAB PO SCH (08:00)
--- NOTE | 2018-08-21 18:38 | CARD ---
APPROVED REPORT Date of service: 08/21/2018 EKG Measurement Heart [id number] <Conclusion> Sinus bradycardia Otherwise normal ECG
--- NOTE | 2018-08-22 00:38 | CP.PCM.PN ---
Subjective - Date & Time of Evaluation Date of Evaluation: 08/21/18 Time of Evaluation: 10:55 - Subjective Subjective: No new complaint. Still on 1 to 1 Watch. Her Guardian, APS and SW on board, and waiting placement. Objective - Vital Signs/Intake and Output Vital Signs (last 24 hours): Temp Pulse Resp BP Pulse Ox 97.5 F L 53 L 18 109/50 L 95 08/22/18 00:01 08/22/18 00:01 08/22/18 00:01 08/22/18 00:01 08/22/18 00:01 - Medications Medications: Current Medications Acetaminophen (Tylenol 325mg Tab) 650 mg PO Q6 PRN PRN Reason: Pain, Mild (1-3) Celecoxib (Celebrex) 200 mg PO Q12 [facility] Last Admin: 08/21/18 21:37 Dose: 200 mg Citalopram Hydrobromide (Celexa) 40 mg PO DAILY [facility] Last Admin: 08/21/18 10:31 Dose: 40 mg Dicyclomine HCl (Bentyl) 10 mg PO Q8 PRN PRN Reason: abdominal cramp Furosemide (Lasix) 20 mg PO DAILY [facility] Last Admin: 08/21/18 10:34 Dose: Not Given Levothyroxine Sodium (Synthroid) 150 mcg PO DAILY@0630 [facility] Last Admin: 08/21/18 08:00 Dose: 150 mcg Losartan Potassium (Cozaar) 100 mg PO DAILY [facility] Last Admin: 08/21/18 10:32 Dose: Not Given Memantine (Namenda) 5 mg PO BID [facility] Last Admin: 08/21/18 16:44 Dose: 5 mg Rivastigmine (Exelon 4.6 Mg/24 Hr Patch) 1 patch TD DAILY [facility] Last Admin: 08/21/18 10:33 Dose: 1 patch - Labs Labs: 08/02/18 16:52 08/02/18 16:52 Assessment and Plan (1) Living accommodation issues Status: Resolved (2) Delirium Status: Chronic (3) HTN (hypertension) Status: Chronic (4) Hypothyroidism Status: Chronic (5) Dementia Status: Chronic - Assessment and Plan (Free Text) Plan: Continue current Medications 1 to 1 for safety Guardian, SW, and APS on Board , and pending Placement.
--- NOTE | 2018-08-22 00:38 | CP.PCM.PN ---
Subjective - Date & Time of Evaluation Date of Evaluation: 08/20/18 Time of Evaluation: 12:15 - Subjective Subjective: No new complaint. Still on 1 to 1 Watch. Her Guardian, APS and SW on board, and waiting for placement. Objective - Vital Signs/Intake and Output Vital Signs (last 24 hours): Temp Pulse Resp BP Pulse Ox 97.5 F L 53 L 18 109/50 L 95 08/22/18 00:01 08/22/18 00:01 08/22/18 00:01 08/22/18 00:01 08/22/18 00:01 - Medications Medications: Current Medications Acetaminophen (Tylenol 325mg Tab) 650 mg PO Q6 PRN PRN Reason: Pain, Mild (1-3) Celecoxib (Celebrex) 200 mg PO Q12 [facility] Last Admin: 08/21/18 21:37 Dose: 200 mg Citalopram Hydrobromide (Celexa) 40 mg PO DAILY [facility] Last Admin: 08/21/18 10:31 Dose: 40 mg Dicyclomine HCl (Bentyl) 10 mg PO Q8 PRN PRN Reason: abdominal cramp Furosemide (Lasix) 20 mg PO DAILY [facility] Last Admin: 08/21/18 10:34 Dose: Not Given Levothyroxine Sodium (Synthroid) 150 mcg PO DAILY@0630 [facility] Last Admin: 08/21/18 08:00 Dose: 150 mcg Losartan Potassium (Cozaar) 100 mg PO DAILY [facility] Last Admin: 08/21/18 10:32 Dose: Not Given Memantine (Namenda) 5 mg PO BID [facility] Last Admin: 08/21/18 16:44 Dose: 5 mg Rivastigmine (Exelon 4.6 Mg/24 Hr Patch) 1 patch TD DAILY [facility] Last Admin: 08/21/18 10:33 Dose: 1 patch - Labs Labs: 08/02/18 16:52 08/02/18 16:52 Assessment and Plan (1) Living accommodation issues Status: Resolved (2) Delirium Status: Chronic (3) HTN (hypertension) Status: Chronic (4) Hypothyroidism Status: Chronic (5) Dementia Status: Chronic - Assessment and Plan (Free Text) Plan: Guardian, SW, and APS on Board , and pending Placement.
[2018-08-22] MEDS: Levothyroxine 150 MCG TAB PO SCH (06:37)
--- NOTE | 2018-08-22 22:25 | CP.PCM.PN ---
Subjective - Date & Time of Evaluation Date of Evaluation: 08/22/18 Time of Evaluation: 14:35 Objective - Vital Signs/Intake and Output Vital Signs (last 24 hours): Temp Pulse Resp BP Pulse Ox 97.8 F 60 19 108/68 95 08/22/18 16:29 08/22/18 17:38 08/22/18 16:29 08/22/18 17:38 08/22/18 16:29 - Medications Medications: Current Medications Acetaminophen (Tylenol 325mg Tab) 650 mg PO Q6 PRN PRN Reason: Pain, Mild (1-3) Celecoxib (Celebrex) 200 mg PO Q12 [facility] Last Admin: 08/22/18 22:00 Dose: 200 mg Citalopram Hydrobromide (Celexa) 40 mg PO DAILY [facility] Last Admin: 08/22/18 09:34 Dose: 40 mg Dicyclomine HCl (Bentyl) 10 mg PO Q8 PRN PRN Reason: abdominal cramp Furosemide (Lasix) 20 mg PO DAILY [facility] Last Admin: 08/22/18 09:35 Dose: 20 mg Levothyroxine Sodium (Synthroid) 150 mcg PO DAILY@0630 [facility] Last Admin: 08/22/18 06:37 Dose: 150 mcg Losartan Potassium (Cozaar) 100 mg PO DAILY [facility] Last Admin: 08/22/18 17:38 Dose: 100 mg Memantine (Namenda) 5 mg PO BID [facility] Last Admin: 08/22/18 17:39 Dose: 5 mg Rivastigmine (Exelon 4.6 Mg/24 Hr Patch) 1 patch TD DAILY [facility] Last Admin: 08/22/18 09:35 Dose: 1 patch - Labs Labs: 08/02/18 16:52 08/02/18 16:52 Assessment and Plan (1) Living accommodation issues Status: Resolved (2) Delirium Status: Chronic (3) HTN (hypertension) Status: Chronic (4) Hypothyroidism Status: Chronic (5) Dementia Status: Chronic
[2018-08-23] MEDS: Levothyroxine 150 MCG TAB PO SCH (06:01)
[2018-08-24] MEDS: Levothyroxine 150 MCG TAB PO SCH (07:00)
--- NOTE | 2018-08-24 23:28 | CP.PCM.PN ---
Subjective - Date & Time of Evaluation Date of Evaluation: 08/23/18 Time of Evaluation: 19:55 Objective - Vital Signs/Intake and Output Vital Signs (last 24 hours): Temp Pulse Resp BP Pulse Ox 97.9 F 75 20 133/93 H 96 08/24/18 16:36 08/24/18 16:36 08/24/18 16:36 08/24/18 16:36 08/24/18 16:36 - Medications Medications: Current Medications Acetaminophen (Tylenol 325mg Tab) 650 mg PO Q6 PRN PRN Reason: Pain, Mild (1-3) Celecoxib (Celebrex) 200 mg PO Q12 [facility] Last Admin: 08/24/18 21:24 Dose: 200 mg Citalopram Hydrobromide (Celexa) 40 mg PO DAILY [facility] Last Admin: 08/24/18 09:31 Dose: 40 mg Dicyclomine HCl (Bentyl) 10 mg PO Q8 PRN PRN Reason: abdominal cramp Furosemide (Lasix) 20 mg PO DAILY [facility] Last Admin: 08/24/18 09:34 Dose: 20 mg Levothyroxine Sodium (Synthroid) 150 mcg PO DAILY@0630 [facility] Last Admin: 08/24/18 07:00 Dose: 150 mcg Losartan Potassium (Cozaar) 100 mg PO DAILY [facility] Last Admin: 08/24/18 09:33 Dose: 100 mg Memantine (Namenda) 5 mg PO BID [facility] Last Admin: 08/24/18 16:28 Dose: 5 mg Rivastigmine (Exelon 4.6 Mg/24 Hr Patch) 1 patch TD DAILY [facility] Last Admin: 08/24/18 09:34 Dose: 1 patch - Labs Labs: 08/02/18 16:52 08/02/18 16:52 Assessment and Plan (1) Living accommodation issues Status: Resolved (2) Delirium Status: Chronic (3) HTN (hypertension) Status: Chronic (4) Hypothyroidism Status: Chronic (5) Dementia Status: Chronic
--- NOTE | 2018-08-24 23:29 | CP.PCM.PN ---
Subjective - Date & Time of Evaluation Date of Evaluation: 08/24/18 Time of Evaluation: 15:00 Objective - Vital Signs/Intake and Output Vital Signs (last 24 hours): Temp Pulse Resp BP Pulse Ox 97.9 F 75 20 133/93 H 96 08/24/18 16:36 08/24/18 16:36 08/24/18 16:36 08/24/18 16:36 08/24/18 16:36 - Medications Medications: Current Medications Acetaminophen (Tylenol 325mg Tab) 650 mg PO Q6 PRN PRN Reason: Pain, Mild (1-3) Celecoxib (Celebrex) 200 mg PO Q12 [facility] Last Admin: 08/24/18 21:24 Dose: 200 mg Citalopram Hydrobromide (Celexa) 40 mg PO DAILY [facility] Last Admin: 08/24/18 09:31 Dose: 40 mg Dicyclomine HCl (Bentyl) 10 mg PO Q8 PRN PRN Reason: abdominal cramp Furosemide (Lasix) 20 mg PO DAILY [facility] Last Admin: 08/24/18 09:34 Dose: 20 mg Levothyroxine Sodium (Synthroid) 150 mcg PO DAILY@0630 [facility] Last Admin: 08/24/18 07:00 Dose: 150 mcg Losartan Potassium (Cozaar) 100 mg PO DAILY [facility] Last Admin: 08/24/18 09:33 Dose: 100 mg Memantine (Namenda) 5 mg PO BID [facility] Last Admin: 08/24/18 16:28 Dose: 5 mg Rivastigmine (Exelon 4.6 Mg/24 Hr Patch) 1 patch TD DAILY [facility] Last Admin: 08/24/18 09:34 Dose: 1 patch - Labs Labs: 08/02/18 16:52 08/02/18 16:52 Assessment and Plan (1) Living accommodation issues Status: Resolved (2) Delirium Status: Chronic (3) HTN (hypertension) Status: Chronic (4) Hypothyroidism Status: Chronic (5) Dementia Status: Chronic
[2018-08-25] MEDS: Levothyroxine 150 MCG TAB PO SCH (06:35)
[2018-08-25 18:50] LABS: BASO % 0.7 % (0.0-2.0); EOS # 0.1 K/uL (0.0-0.7); EOS % 1.9 % (0.0-4.0); HEMOGLOBIN 14.4 g/dL (12.0-16.0); LYMPH # 1.2 K/uL (1.0-4.3); LYMPH % 17.9 % (20.0-40.0); MEAN CELL VOLUME 93.8 fl (81.0-99.0); MEAN CORPUSCULAR HEMOGLOBIN 31.3 pg (27.0-31.0); MEAN CORPUSCULAR HGB CONC 33.4 g/dL (33.0-37.0); MEAN PLATELET VOLUME 8.9 fl (7.2-11.7); MONO # 0.5 K/uL (0.0-0.8); MONO % 7.6 % (0.0-10.0); NEUT # 4.8 K/uL (1.8-7.0); NEUT % 71.9 % (50.0-75.0); RBC 4.58 Mil/uL (3.80-5.20); WHITE BLOOD COUNT 6.7 K/uL (4.8-10.8)
[2018-08-25 19:07] LABS: BLOOD UREA NITROGEN 34 mg/dl (7-17); CALCIUM 9.2 mg/dL (8.4-10.2); GFR NON-AFRICAN AMERICAN > 60
--- NOTE | 2018-08-25 21:01 | CARD ---
APPROVED REPORT Date of service: 08/25/2018 EKG Measurement Heart [id number] <Conclusion> Sinus bradycardia Otherwise normal ECG
[2018-08-26] MEDS: Levothyroxine 150 MCG TAB PO SCH (06:15)
--- NOTE | 2018-08-26 23:29 | CP.PCM.PN ---
Subjective - Date & Time of Evaluation Date of Evaluation: 08/25/18 Time of Evaluation: 08:25 Objective - Vital Signs/Intake and Output Vital Signs (last 24 hours): Temp Pulse Resp BP Pulse Ox 97.4 F L 52 L 18 122/61 97 08/26/18 16:44 08/26/18 16:44 08/26/18 16:44 08/26/18 16:44 08/26/18 16:44 - Medications Medications: Current Medications Acetaminophen (Tylenol 325mg Tab) 650 mg PO Q6 PRN PRN Reason: Pain, Mild (1-3) Last Admin: 08/25/18 12:30 Dose: 650 mg Celecoxib (Celebrex) 200 mg PO Q12 [facility] Last Admin: 08/26/18 21:27 Dose: 200 mg Citalopram Hydrobromide (Celexa) 40 mg PO DAILY [facility] Last Admin: 08/26/18 09:48 Dose: 40 mg Dicyclomine HCl (Bentyl) 10 mg PO Q8 PRN PRN Reason: abdominal cramp Furosemide (Lasix) 20 mg PO DAILY [facility] Last Admin: 08/26/18 09:49 Dose: 20 mg Levothyroxine Sodium (Synthroid) 150 mcg PO DAILY@0630 [facility] Last Admin: 08/26/18 06:15 Dose: 150 mcg Losartan Potassium (Cozaar) 100 mg PO DAILY [facility] Last Admin: 08/26/18 09:48 Dose: 100 mg Memantine (Namenda) 5 mg PO BID [facility] Last Admin: 08/26/18 16:23 Dose: 5 mg Rivastigmine (Exelon 4.6 Mg/24 Hr Patch) 1 patch TD DAILY [facility] Last Admin: 08/26/18 09:49 Dose: 1 patch - Labs Labs: 08/25/18 18:23 08/25/18 18:23 Assessment and Plan (1) Living accommodation issues Status: Resolved (2) Delirium Status: Chronic (3) HTN (hypertension) Status: Chronic (4) Hypothyroidism Status: Chronic (5) Dementia Status: Chronic
--- NOTE | 2018-08-26 23:29 | CP.PCM.PN ---
Subjective - Date & Time of Evaluation Date of Evaluation: 08/26/18 Time of Evaluation: 14:35 Objective - Vital Signs/Intake and Output Vital Signs (last 24 hours): Temp Pulse Resp BP Pulse Ox 97.4 F L 52 L 18 122/61 97 08/26/18 16:44 08/26/18 16:44 08/26/18 16:44 08/26/18 16:44 08/26/18 16:44 - Medications Medications: Current Medications Acetaminophen (Tylenol 325mg Tab) 650 mg PO Q6 PRN PRN Reason: Pain, Mild (1-3) Last Admin: 08/25/18 12:30 Dose: 650 mg Celecoxib (Celebrex) 200 mg PO Q12 [facility] Last Admin: 08/26/18 21:27 Dose: 200 mg Citalopram Hydrobromide (Celexa) 40 mg PO DAILY [facility] Last Admin: 08/26/18 09:48 Dose: 40 mg Dicyclomine HCl (Bentyl) 10 mg PO Q8 PRN PRN Reason: abdominal cramp Furosemide (Lasix) 20 mg PO DAILY [facility] Last Admin: 08/26/18 09:49 Dose: 20 mg Levothyroxine Sodium (Synthroid) 150 mcg PO DAILY@0630 [facility] Last Admin: 08/26/18 06:15 Dose: 150 mcg Losartan Potassium (Cozaar) 100 mg PO DAILY [facility] Last Admin: 08/26/18 09:48 Dose: 100 mg Memantine (Namenda) 5 mg PO BID [facility] Last Admin: 08/26/18 16:23 Dose: 5 mg Rivastigmine (Exelon 4.6 Mg/24 Hr Patch) 1 patch TD DAILY [facility] Last Admin: 08/26/18 09:49 Dose: 1 patch - Labs Labs: 08/25/18 18:23 08/25/18 18:23 Assessment and Plan (1) Living accommodation issues Status: Resolved (2) Delirium Status: Chronic (3) HTN (hypertension) Status: Chronic (4) Hypothyroidism Status: Chronic (5) Dementia Status: Chronic
[2018-08-27] MEDS: Levothyroxine 150 MCG TAB PO SCH (06:00)
--- NOTE | 2018-08-27 18:04 | CP.PCM.PN ---
Subjective - Date & Time of Evaluation Date of Evaluation: 08/27/18 Time of Evaluation: 07:45 - Subjective Subjective: No new complaint. Still on 1 to 1 Watch. Her Guardian, APS and SW on board, and waiting placement. Asymptomatic Bradycardia worse when patient sleeps. Objective - Vital Signs/Intake and Output Vital Signs (last 24 hours): Temp Pulse Resp BP Pulse Ox 97.5 F L 50 L 18 130/84 94 L 08/27/18 16:24 08/27/18 16:24 08/27/18 16:24 08/27/18 16:24 08/27/18 16:24 - Medications Medications: Current Medications Acetaminophen (Tylenol 325mg Tab) 650 mg PO Q6 PRN PRN Reason: Pain, Mild (1-3) Last Admin: 08/25/18 12:30 Dose: 650 mg Celecoxib (Celebrex) 200 mg PO Q12 [facility] Last Admin: 08/27/18 09:53 Dose: 200 mg Citalopram Hydrobromide (Celexa) 40 mg PO DAILY [facility] Last Admin: 08/26/18 09:48 Dose: 40 mg Dicyclomine HCl (Bentyl) 10 mg PO Q8 PRN PRN Reason: abdominal cramp Furosemide (Lasix) 20 mg PO DAILY [facility] Last Admin: 08/27/18 09:54 Dose: 20 mg Levothyroxine Sodium (Synthroid) 150 mcg PO DAILY@0630 [facility] Last Admin: 08/27/18 06:00 Dose: 150 mcg Losartan Potassium (Cozaar) 100 mg PO DAILY [facility] Last Admin: 08/27/18 09:59 Dose: 100 mg Memantine (Namenda) 5 mg PO BID [facility] Last Admin: 08/27/18 16:09 Dose: 5 mg Rivastigmine (Exelon 4.6 Mg/24 Hr Patch) 1 patch TD DAILY [facility] Last Admin: 08/27/18 09:54 Dose: 1 patch - Labs Labs: 08/25/18 18:23 08/25/18 18:23 Assessment and Plan (1) Living accommodation issues Status: Resolved (2) Delirium Status: Chronic (3) HTN (hypertension) Status: Chronic (4) Hypothyroidism Status: Chronic (5) Dementia Status: Chronic - Assessment and Plan (Free Text) Plan: Continue current Medications 1 to 1 for safety [facility] Guardian, SW, and APS on Board , and pending Placement.
[2018-08-28] MEDS: Levothyroxine 150 MCG TAB PO SCH (06:55)
--- NOTE | 2018-08-28 23:30 | CP.PCM.PN ---
Subjective - Date & Time of Evaluation Date of Evaluation: 08/28/18 Time of Evaluation: 07:40 Objective - Vital Signs/Intake and Output Vital Signs (last 24 hours): Temp Pulse Resp BP Pulse Ox 97.7 F 52 L 18 112/68 94 L 08/28/18 16:44 08/28/18 16:44 08/28/18 16:44 08/28/18 16:44 08/28/18 16:44 - Medications Medications: Current Medications Acetaminophen (Tylenol 325mg Tab) 650 mg PO Q6 PRN PRN Reason: Pain, Mild (1-3) Last Admin: 08/28/18 06:55 Dose: 650 mg Celecoxib (Celebrex) 200 mg PO Q12 [facility] Last Admin: 08/28/18 21:34 Dose: 200 mg Citalopram Hydrobromide (Celexa) 40 mg PO DAILY [facility] Last Admin: 08/28/18 10:18 Dose: 40 mg Dicyclomine HCl (Bentyl) 10 mg PO Q8 PRN PRN Reason: abdominal cramp Furosemide (Lasix) 20 mg PO DAILY [facility] Last Admin: 08/28/18 10:19 Dose: 20 mg Levothyroxine Sodium (Synthroid) 150 mcg PO DAILY@0630 [facility] Last Admin: 08/28/18 06:55 Dose: 150 mcg Losartan Potassium (Cozaar) 100 mg PO DAILY [facility] Last Admin: 08/28/18 10:21 Dose: 100 mg Memantine (Namenda) 5 mg PO BID [facility] Last Admin: 08/28/18 16:35 Dose: 5 mg Rivastigmine (Exelon 4.6 Mg/24 Hr Patch) 1 patch TD DAILY [facility] Last Admin: 08/28/18 10:19 Dose: 1 patch - Labs Labs: 08/25/18 18:23 08/25/18 18:23 Assessment and Plan (1) Living accommodation issues Status: Resolved (2) Delirium Status: Chronic (3) HTN (hypertension) Status: Chronic (4) Hypothyroidism Status: Chronic (5) Dementia Status: Chronic
[2018-08-29] MEDS: Levothyroxine 150 MCG TAB PO SCH (06:50)
[2018-08-30] MEDS: Levothyroxine 150 MCG TAB PO SCH (06:03)
--- NOTE | 2018-08-30 11:05 | CP.PCM.CON ---
History of Present Illness - History of Present Illness History of Present Illness: This 72-year-old hypertensive female with a long history of hypothyroidism is well-known to me over last 4-5 years. Couple of years back the patient has developed an aggressive form of dementia. At this point she has severe cognitive deficit and is not able to recall recent events at all. 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 The patient had laparoscopic cholecystectomy approximately 2 months back une ventlessly. She continues to report intermittent abdominal discomfort but is able to tolerate feedings well. At this point she is being kept in the hospital while long-term placement is being arranged. Physical examination shows an elderly slightly overweight female who is alert and awake but quite confused about her surroundings. She is in no distress. A large scar on her left knee at tests to total knee replacement which she had twice within last 10 years. She has a heart rate of 54 bpm regular and a blood pressure of 136/74 mmHg. Her jugular venous pressure was not elevated and there was no edema over her lower extremities. The pedal pulses were feeble but distinct of present. There were no carotid bruits. A brief ejection systolic murmur was audible in the aortic area with a well preserved second heart sound. Review off her echocardiogram from last year shows a sclerotic aortic valve with a trivial gradient of 34 mmHg at peak systole. Her lab data was reviewed. Impression: Mild sinus bradycardia without any symptom off near syncope or syncope. Hypertension and hypothyroidism which is corrected. Lewy body dementia The patient is euthyroid with a normal TSH level. She has mild sinus bradycardia which is not clinically relevant in absence of any symptoms in a patient who has a lifestyle that involves mostly living indoors. At this juncture no intervention such as pacemaker need be considered. Past Patient History - Infectious Disease Hx of Infectious Diseases: None - Tetanus Immunizations Tetanus Immunization: Unknown - Past Medical History & Family History Past Medical History?: Yes Past Family History: Reviewed and not pertinent - Past Social History Smoking Status: Never Smoked Alcohol: None Drugs: Denies - CARDIAC Hx Cardiac Disorders: Yes - PULMONARY Hx Respiratory Disorders: Yes - NEUROLOGICAL Hx Neurological Disorder: Yes - HEENT Hx HEENT Problems: No - RENAL Hx Chronic Kidney Disease: No - ENDOCRINE/METABOLIC Hx Endocrine Disorders: Yes - HEMATOLOGICAL/ONCOLOGICAL Hx Human Immunodeficiency Virus (HIV): No - INTEGUMENTARY Hx Dermatological Problems: No - MUSCULOSKELETAL/RHEUMATOLOGICAL Hx Arthritis: Yes Hx Rheumatoid Arthritis: No - GASTROINTESTINAL Hx Diverticulitis: Yes - GENITOURINARY/GYNECOLOGICAL Hx Sexually Transmitted Disorders: No - PSYCHIATRIC Hx Psychophysiologic Disorder: Yes - SURGICAL HISTORY Hx Tonsillectomy: Yes - ANESTHESIA Hx Anesthesia: Yes Hx Anesthesia Reactions: No Meds Allergies/Adverse Reactions: Allergies Allergy/AdvReac Type Severity Reaction Status Date / Time terbinafine HCl Allergy RASH Verified 08/02/18 14:45 [From Lamisil] famciclovir [From Famvir] AdvReac SHORTNESS Verified 08/02/18 14:45 OF BREATH - Medications Medications: Current Medications Acetaminophen (Tylenol 325mg Tab) 650 mg PO Q6 PRN PRN Reason: Pain, Mild (1-3) Last Admin: 08/28/18 06:55 Dose: 650 mg Celecoxib (Celebrex) [address] [facility] Last Admin: 08/30/18 08:45 Dose: 200 mg Citalopram Hydrobromide (Celexa) [address] [facility] Last Admin: 08/30/18 08:46 Dose: 40 mg Dicyclomine HCl (Bentyl) 10 mg PO Q8 PRN PRN Reason: abdominal cramp Furosemide (Lasix) [address] [facility] Last Admin: 08/30/18 08:46 Dose: 20 mg Levothyroxine Sodium (Synthroid) 150 mcg PO DAILY@0630 [facility] Last Admin: 08/30/18 06:03 Dose: 150 mcg Losartan Potassium (Cozaar) [address] [facility] Last Admin: 08/30/18 08:44 Dose: Not Given Memantine (Namenda) [address] [facility] Last Admin: 08/30/18 08:47 Dose: 5 mg Rivastigmine (Exelon 4.6 Mg/24 Hr Patch) [address] [facility] Last Admin: 08/30/18 08:46 Dose: 1 patch Results - Vital Signs Recent Vital Signs: Last Vital Signs Temp 97.7 F 08/30/18 08:04 Pulse 51 L 08/30/18 08:44 Resp 19 08/30/18 08:04 BP 155/71 H 08/30/18 08:46 Pulse Ox 96 08/30/18 08:04 - Labs Result Diagrams: 08/25/18 18:23 08/25/18 18:23
[2018-08-31] MEDS: Levothyroxine 150 MCG TAB PO SCH (06:18)
[2018-09-01] MEDS: Levothyroxine 150 MCG TAB PO SCH (06:32)
--- NOTE | 2018-09-02 00:05 | CP.PCM.PN ---
Subjective - Date & Time of Evaluation Date of Evaluation: 08/29/18 Objective - Vital Signs/Intake and Output Vital Signs (last 24 hours): Temp Pulse Resp BP Pulse Ox 97.3 F L 54 L 18 142/67 96 09/01/18 16:36 09/01/18 16:36 09/01/18 16:36 09/01/18 16:36 09/01/18 16:36 - Medications Medications: Current Medications Acetaminophen (Tylenol 325mg Tab) 650 mg PO Q6 PRN PRN Reason: Pain, Mild (1-3) Last Admin: 08/30/18 14:07 Dose: 650 mg Celecoxib (Celebrex) 200 mg PO Q12 [facility] Last Admin: 09/01/18 21:39 Dose: 200 mg Citalopram Hydrobromide (Celexa) 40 mg PO DAILY [facility] Last Admin: 09/01/18 09:47 Dose: 40 mg Dicyclomine HCl (Bentyl) 10 mg PO Q8 PRN PRN Reason: abdominal cramp Furosemide (Lasix) 20 mg PO DAILY [facility] Last Admin: 09/01/18 09:48 Dose: 20 mg Levothyroxine Sodium (Synthroid) 150 mcg PO DAILY@0630 [facility] Last Admin: 09/01/18 06:32 Dose: 150 mcg Losartan Potassium (Cozaar) 100 mg PO DAILY [facility] Last Admin: 09/01/18 09:42 Dose: Not Given Memantine (Namenda) 5 mg PO BID [facility] Last Admin: 09/01/18 17:00 Dose: 5 mg Rivastigmine (Exelon 4.6 Mg/24 Hr Patch) 1 patch TD DAILY [facility] Last Admin: 09/01/18 09:47 Dose: 1 patch - Labs Labs: 08/25/18 18:23 08/25/18 18:23 Assessment and Plan (1) Living accommodation issues Status: Resolved (2) Delirium Status: Chronic (3) HTN (hypertension) Status: Chronic (4) Hypothyroidism Status: Chronic (5) Dementia Status: Chronic
--- NOTE | 2018-09-02 00:07 | CP.PCM.PN ---
Subjective - Date & Time of Evaluation Date of Evaluation: 08/30/18 Objective - Vital Signs/Intake and Output Vital Signs (last 24 hours): Temp Pulse Resp BP Pulse Ox 97.3 F L 54 L 18 142/67 96 09/01/18 16:36 09/01/18 16:36 09/01/18 16:36 09/01/18 16:36 09/01/18 16:36 - Medications Medications: Current Medications Acetaminophen (Tylenol 325mg Tab) 650 mg PO Q6 PRN PRN Reason: Pain, Mild (1-3) Last Admin: 08/30/18 14:07 Dose: 650 mg Celecoxib (Celebrex) 200 mg PO Q12 [facility] Last Admin: 09/01/18 21:39 Dose: 200 mg Citalopram Hydrobromide (Celexa) 40 mg PO DAILY [facility] Last Admin: 09/01/18 09:47 Dose: 40 mg Dicyclomine HCl (Bentyl) 10 mg PO Q8 PRN PRN Reason: abdominal cramp Furosemide (Lasix) 20 mg PO DAILY [facility] Last Admin: 09/01/18 09:48 Dose: 20 mg Levothyroxine Sodium (Synthroid) 150 mcg PO DAILY@0630 [facility] Last Admin: 09/01/18 06:32 Dose: 150 mcg Losartan Potassium (Cozaar) 100 mg PO DAILY [facility] Last Admin: 09/01/18 09:42 Dose: Not Given Memantine (Namenda) 5 mg PO BID [facility] Last Admin: 09/01/18 17:00 Dose: 5 mg Rivastigmine (Exelon 4.6 Mg/24 Hr Patch) 1 patch TD DAILY [facility] Last Admin: 09/01/18 09:47 Dose: 1 patch - Labs Labs: 08/25/18 18:23 08/25/18 18:23 Assessment and Plan (1) Living accommodation issues Status: Resolved (2) Delirium Status: Chronic (3) HTN (hypertension) Status: Chronic (4) Hypothyroidism Status: Chronic (5) Dementia Status: Chronic
--- NOTE | 2018-09-02 00:07 | CP.PCM.PN ---
Subjective - Date & Time of Evaluation Date of Evaluation: 08/31/18 Objective - Vital Signs/Intake and Output Vital Signs (last 24 hours): Temp Pulse Resp BP Pulse Ox 97.3 F L 54 L 18 142/67 96 09/01/18 16:36 09/01/18 16:36 09/01/18 16:36 09/01/18 16:36 09/01/18 16:36 - Medications Medications: Current Medications Acetaminophen (Tylenol 325mg Tab) 650 mg PO Q6 PRN PRN Reason: Pain, Mild (1-3) Last Admin: 08/30/18 14:07 Dose: 650 mg Celecoxib (Celebrex) 200 mg PO Q12 [facility] Last Admin: 09/01/18 21:39 Dose: 200 mg Citalopram Hydrobromide (Celexa) 40 mg PO DAILY [facility] Last Admin: 09/01/18 09:47 Dose: 40 mg Dicyclomine HCl (Bentyl) 10 mg PO Q8 PRN PRN Reason: abdominal cramp Furosemide (Lasix) 20 mg PO DAILY [facility] Last Admin: 09/01/18 09:48 Dose: 20 mg Levothyroxine Sodium (Synthroid) 150 mcg PO DAILY@0630 [facility] Last Admin: 09/01/18 06:32 Dose: 150 mcg Losartan Potassium (Cozaar) 100 mg PO DAILY [facility] Last Admin: 09/01/18 09:42 Dose: Not Given Memantine (Namenda) 5 mg PO BID [facility] Last Admin: 09/01/18 17:00 Dose: 5 mg Rivastigmine (Exelon 4.6 Mg/24 Hr Patch) 1 patch TD DAILY [facility] Last Admin: 09/01/18 09:47 Dose: 1 patch - Labs Labs: 08/25/18 18:23 08/25/18 18:23 Assessment and Plan (1) Living accommodation issues Status: Resolved (2) Delirium Status: Chronic (3) HTN (hypertension) Status: Chronic (4) Hypothyroidism Status: Chronic (5) Dementia Status: Chronic
--- NOTE | 2018-09-02 00:08 | CP.PCM.PN ---
Subjective - Date & Time of Evaluation Date of Evaluation: 09/01/18 Objective - Vital Signs/Intake and Output Vital Signs (last 24 hours): Temp Pulse Resp BP Pulse Ox 97.3 F L 54 L 18 142/67 96 09/01/18 16:36 09/01/18 16:36 09/01/18 16:36 09/01/18 16:36 09/01/18 16:36 - Medications Medications: Current Medications Acetaminophen (Tylenol 325mg Tab) 650 mg PO Q6 PRN PRN Reason: Pain, Mild (1-3) Last Admin: 08/30/18 14:07 Dose: 650 mg Celecoxib (Celebrex) 200 mg PO Q12 [facility] Last Admin: 09/01/18 21:39 Dose: 200 mg Citalopram Hydrobromide (Celexa) 40 mg PO DAILY [facility] Last Admin: 09/01/18 09:47 Dose: 40 mg Dicyclomine HCl (Bentyl) 10 mg PO Q8 PRN PRN Reason: abdominal cramp Furosemide (Lasix) 20 mg PO DAILY [facility] Last Admin: 09/01/18 09:48 Dose: 20 mg Levothyroxine Sodium (Synthroid) 150 mcg PO DAILY@0630 [facility] Last Admin: 09/01/18 06:32 Dose: 150 mcg Losartan Potassium (Cozaar) 100 mg PO DAILY [facility] Last Admin: 09/01/18 09:42 Dose: Not Given Memantine (Namenda) 5 mg PO BID [facility] Last Admin: 09/01/18 17:00 Dose: 5 mg Rivastigmine (Exelon 4.6 Mg/24 Hr Patch) 1 patch TD DAILY [facility] Last Admin: 09/01/18 09:47 Dose: 1 patch - Labs Labs: 08/25/18 18:23 08/25/18 18:23 Assessment and Plan (1) Living accommodation issues Status: Resolved (2) Delirium Status: Chronic (3) HTN (hypertension) Status: Chronic (4) Hypothyroidism Status: Chronic (5) Dementia Status: Chronic
[2018-09-02 01:05] VITALS: RESP 20
[2018-09-02] MEDS: Levothyroxine 150 MCG TAB PO SCH (06:00)
[2018-09-03] MEDS: Levothyroxine 150 MCG TAB PO SCH (05:37)
--- NOTE | 2018-09-03 11:38 | CP.PCM.PN ---
Subjective - Date & Time of Evaluation Date of Evaluation: 09/02/18 Time of Evaluation: 16:30 - Subjective Subjective: No new complaint. Objective - Vital Signs/Intake and Output Vital Signs (last 24 hours): Temp Pulse Resp BP Pulse Ox 97.3 F L 52 L 20 149/78 97 09/03/18 08:44 09/03/18 08:44 09/03/18 08:44 09/03/18 09:19 09/03/18 08:44 - Medications Medications: Current Medications Acetaminophen (Tylenol 325mg Tab) 650 mg PO Q6 PRN PRN Reason: Pain, Mild (1-3) Last Admin: 08/30/18 14:07 Dose: 650 mg Celecoxib (Celebrex) 200 mg PO Q12 [facility] Last Admin: 09/03/18 09:18 Dose: 200 mg Citalopram Hydrobromide (Celexa) 40 mg PO DAILY [facility] Last Admin: 09/03/18 09:20 Dose: 40 mg Dicyclomine HCl (Bentyl) 10 mg PO Q8 PRN PRN Reason: abdominal cramp Furosemide (Lasix) 20 mg PO DAILY [facility] Last Admin: 09/03/18 09:19 Dose: 20 mg Levothyroxine Sodium (Synthroid) 150 mcg PO DAILY@0630 [facility] Last Admin: 09/03/18 05:37 Dose: 150 mcg Losartan Potassium (Cozaar) 100 mg PO DAILY [facility] Last Admin: 09/03/18 09:20 Dose: 100 mg Memantine (Namenda) 5 mg PO BID [facility] Last Admin: 09/03/18 09:19 Dose: 5 mg Rivastigmine (Exelon 4.6 Mg/24 Hr Patch) 1 patch TD DAILY [facility] Last Admin: 09/03/18 09:17 Dose: 1 patch - Labs Labs: 08/25/18 18:23 08/25/18 18:23 Assessment and Plan (1) Living accommodation issues Status: Resolved (2) Delirium Status: Chronic (3) HTN (hypertension) Status: Chronic (4) Hypothyroidism Status: Chronic (5) Dementia Status: Chronic - Assessment and Plan (Free Text) Plan: Continue Current Care
[2018-09-03 16:19] VITALS: BP 114/68; PULSE 51; TEMP 97.9; O2SAT 93
--- NOTE | 2018-09-03 17:57 | CP.PCM.DIS ---
Provider - Provider Date of Admission: 08/05/18 20:41 Attending physician: Aileen Cantor MD Time Spent in preparation of Discharge (in minutes): 20 Diagnosis - Discharge Diagnosis (1) Living accommodation issues Status: Resolved (2) Delirium Status: Chronic Priority: Low (3) HTN (hypertension) Status: Chronic Priority: Low (4) Hypothyroidism Status: Chronic Priority: Medium (5) Dementia Status: Chronic Priority: Low Hospital Course - Lab Results Lab Results: Most Recent Lab Values WBC 6.7 K/uL (4.8-10.8) 08/25/18 18: RBC 4.58 Mil/uL (3.80-5.20) 08/25/18 18: Hgb 14.4 g/dL (12.0-16.0) 08/25/18 18: Hct 43.0 % (34.0-47.0) 08/25/18 18: MCV 93.8 fl (81.0-99.0) 08/25/18 18: MCH 31.3 pg (27.0-31.0) H 08/25/18 18: MCHC 33.4 g/dL (33.0-37.0) 08/25/18 18: RDW 13.0 % (11.5-14.5) 08/25/18 18: Plt Count 217 K/uL (130-400) 08/25/18 18: MPV 8.9 fl (7.2-11.7) 08/25/18 18: Neut % (Auto) 71.9 % (50.0-75.0) 08/25/18 18: Lymph % (Auto) 17.9 % (20.0-40.0) L 08/25/18: [place] % (Auto) 7.6 % (0.0-10.0) 08/25/18 18: Eos % (Auto) 1.9 % (0.0-4.0) 08/25/18 18: Baso % (Auto) 0.7 % (0.0-2.0) 08/25/18 18: Neut # (Auto) 4.8 K/uL (1.8-7.0) 08/25/18 18: Lymph # (Auto) 1.2 K/uL (1.0-4.3) 08/25/18 18:23 [place] # (Auto) 0.5 K/uL (0.0-0.8) 08/25/18 18:23 Eos # (Auto) 0.1 K/uL (0.0-0.7) 08/25/18 18:23 Baso # (Auto) 0.0 K/uL (0.0-0.2) 08/25/18 18:23 Sodium 139 mmol/l (132-148) 08/25/18 18:23 Potassium 4.3 MMOL/L (3.6-5.0) 08/25/18 18:23 Chloride 102 mmol/L (98-107) 08/25/18 18:23 Carbon Dioxide 28 mmol/L (22-30) 08/25/18 18:23 Anion Gap 13 (10-20) 08/25/18 18:23 BUN 34 mg/dl (7-17) H 08/25/18 18:23 Creatinine 0.9 mg/dl (0.7-1.2) 08/25/18 18:23 Est GFR ( Amer) > 60 08/25/18 18:23 Est GFR (Non-Af Amer) > 60 08/25/18 18:23 POC Glucose (mg/dL) 103 mg/dL (65-110) 08/03/18 17:05 Random Glucose 110 mg/dL (65-105) H 08/25/18 18:23 Calcium 9.2 mg/dL (8.4-10.2) 08/25/18 18:23 Total Bilirubin 0.2 mg/dl (0.2-1.3) 08/02/18 16:52 AST 29 U/L (14-36) 08/02/18 16:52 ALT 47 U/L (9-52) 08/02/18 16:52 Alkaline Phosphatase 75 U/L (38-126) 08/02/18 16:52 Total Protein 7.1 G/DL (6.3-8.2) 08/02/18 16:52 Albumin 3.7 g/dL (3.5-5.0) 08/02/18 16:52 Globulin 3.3 gm/dL (2.2-3.9) 08/02/18 16:52 Albumin/Globulin Ratio 1.1 (1.0-2.1) 08/02/18 16:52 TSH 3rd Generation 0.67 mIU/ML (0.46-4.68) 08/25/18 18:23 Urine Color Yellow (YELLOW) 08/03/18 05:30 Urine Clarity Slighty-cloudy (Clear) 08/03/18 05:30 Urine pH 7.0 (5.0-8.0) 08/03/18 05:30 Ur Specific [place] 1.026 (1.003-1.030) 08/03/18 05:30 Urine Protein 30 mg/dL (NEGATIVE) 08/03/18 05:30 Urine Glucose (UA) Neg mg/dL (Normal) 08/03/18 05:30 Urine Ketones Negative mg/dL (NEGATIVE) 08/03/18 05:30 Urine Blood Moderate (NEGATIVE) 08/03/18 05:30 Urine Nitrate Negative (NEGATIVE) 08/03/18 05:30 Urine Bilirubin Negative (NEGATIVE) 08/03/18 05:30 Urine Urobilinogen 0.2-1.0 mg/dL (0.2-1.0) 08/03/18 05:30 Ur Leukocyte Esterase Neg [place]/uL (Negative) 08/03/18 05:30 Urine RBC (Auto) 16 /hpf (0-3) H 08/03/18 05:30 Urine Microscopic WBC 1 /hpf (0-5) 08/03/18 05:30 Ur Squamous Epith Cells < 1 /hpf (0-5) 08/03/18 05:30 Amorphous Sediment Rare /ul (<OCC) H 08/03/18 05:30 Urine Bacteria Rare (<OCC) 08/03/18 05:30 Discharge Exam - Head Exam Head Exam: ATRAUMATIC, NORMAL INSPECTION, NORMOCEPHALIC Discharge Plan - Follow Up Plan Condition: STABLE Disposition: REHAB FACILITY/REHAB UNIT Instructions: General (DC), Failure to Thrive, Adult (DC), Weakness (ED)
== END 2018-09-03 17:00 | DRG 884 ==
LOC: H.ER 14:04 → H.ERHOLD 08-03 16:25 → H.MEDSURG1 08-03 18:55 → OBSVTOIN 08-05 20:41
PROVIDERS: ADMIT Internal Medicine; ATTEND Internal Medicine
DX: F03.90 Unspecified dementia, unspecified severity, without behavioral disturbance, psychotic disturbance, mood disturbance, and anxiety (principal); F05 Delirium due to known physiological condition; C85.91 Non-Hodgkin lymphoma, unspecified, lymph nodes of head, face, and neck; Z68.43 Body mass index [BMI] 50.0-59.9, adult; R62.7 Adult failure to thrive; E66.01 Morbid (severe) obesity due to excess calories; G31.83 Neurocognitive disorder with Lewy bodies; Z75.1 Person awaiting admission to adequate facility elsewhere; R26.0 Ataxic gait; R29.6 Repeated falls; E03.9 Hypothyroidism, unspecified; I10 Essential (primary) hypertension; R00.1 Bradycardia, unspecified; Z60.2 Problems related to living alone; Z96.652 Presence of left artificial knee joint; Z74.01 Bed confinement status; Z86.73 Personal history of transient ischemic attack (TIA), and cerebral infarction without residual deficits